=== PATIENT | female | born 1975 | race Two or more races ===

== ENCOUNTER 2017-01-09 18:40 | Emergency (ER) | payer SELFPAY ==
[2017-01-09] MEDS ORDERED: KETOROLAC TROMETHAMINE INJ/PF 30 MG/1 ML SDV IV ONE (19:12)
[2017-01-09] MEDS ORDERED: DIPHENHYDRAMINE HCL 50 MG/ML VIAL IV ONE (19:12)
[2017-01-09] MEDS ORDERED: PROCHLORPERAZINE EDISYLATE INJ 10 MG/2 ML VIAL IV ONE (19:13)
[2017-01-09 19:45] LABS: ABSOLUTE BASOPHILS # (AUTO) 0.1 10^3/uL (0.0-0.2); ABSOLUTE EOSINOPHILS # (AUTO) 0.3 10^3/uL (0.0-0.6); ABSOLUTE LYMPHOCYTES (AUTO) 2.9 10^3/uL (0.5-4.7); ABSOLUTE MONOCYTES (AUTO) 0.5 10^3/uL (0.1-1.4); ABSOLUTE NEUT (AUTO) 1.7 10^3/uL (1.7-8.2); BASOPHILS % (AUTO) 1.7 % (0-2); EOSINOPHILS % (AUTO) 5.2 % (0-6); HEMATOCRIT 36.5 % (36.0-47.0); HEMOGLOBIN 12.5 g/dL (12.0-15.5); LYMPHOCYTES % (AUTO) 53.3 % (13-45); MEAN CORPUSCULAR HEMOGLOBIN 30.8 pg (27.0-33.4); MEAN CORPUSCULAR HGB CONC 34.3 g/dL (32.0-36.0); MEAN CORPUSCULAR VOLUME 90 fl (80-97); MONOCYTES % (AUTO) 9.4 % (3-13); RED BLOOD COUNT 4.06 10^6/uL (3.72-5.28); RED CELL DISTRIBUTION WIDTH 13.1 % (11.5-14.0); SEGMENTED NEUTROPHILS % (AUTO) 30.4 % (42-78); WHITE BLOOD COUNT 5.5 10^3/uL (4.0-10.5)
[2017-01-09 20:07] LABS: ALANINE AMINOTRANSFERASE 23 U/L (9-52); ALBUMIN 3.8 g/dL (3.5-5.0); ALKALINE PHOSPHATASE 75 U/L (38-126); ANION GAP 10 (5-19); ASPARTATE AMINO TRANSFERASE 23 U/L (14-36); BILIRUBIN,DIRECT 0.1 mg/dL (0.0-0.4); BILIRUBIN,TOTAL 0.5 mg/dL (0.2-1.3); BLOOD UREA NITROGEN 11 mg/dL (7-20); CALCIUM 9.2 mg/dL (8.4-10.2); CARBON DIOXIDE 27 mmol/L (22-30); CHLORIDE 106 mmol/L (98-107); GLUCOSE 101 mg/dL (75-110); POTASSIUM 3.8 mmol/L (3.6-5.0); TOTAL PROTEIN 6.4 g/dL (6.3-8.2)
--- NOTE | 2017-01-09 21:02 | ER Document Report ---
ED Headache - General Chief Complaint: Headache Stated Complaint: EARACHE,HEADACHE Notes: 41 yo female c/o left ear pain x 2 weeks and left sided headache x 1 week. no fever. feels dizzy and weak. no neck pain TRAVEL OUTSIDE OF THE [place] IN LAST 30 DAYS: No - HPI Patient complains to provider of: Headache - pt has hx/o migraine, but this is not typical headache for patient Patient reports: Hx chronic headaches Onset: Last week Onset was: Gradual Timing: Still present Quality of pain: Pressure, Sharp Pain Level: 4 Preceding symptoms: denies: Typical of prior aura(s) Associated symptoms: Dizzy. denies: Fever, Nausea/vomiting, Stiff neck Similar symptoms previously: No Recently seen / treated by doctor: No - Related Data Allergies/Adverse Reactions: No Known Allergies Allergy (Verified 07/30/15 13:47) Past Medical History - General Information source: Patient - Social History Smoking Status: Never Smoker Chew tobacco use (# tins/day): No Frequency of alcohol use: None Drug Abuse: None Lives with: Family Family History: Arthritis, CAD, CVA, DM, Hyperlipidemia, Hypertension - Past Medical History Cardiac Medical History: Denies: Hx Coronary Artery Disease, Hx Heart Attack, Hx Hypertension Pulmonary Medical History: Reports: Hx Asthma, Hx Bronchitis, Hx Pneumonia Neurological Medical History: Reports: Hx Migraine GI Medical History: Reports: Hx Hiatal Hernia. Denies: Hx Hepatitis Musculoskeltal Medical History: Reports Hx Arthritis - back, Reports Hx Musculoskeletal Deformity - scoliosis, bunion, hammer toe, Reports Hx Musculoskeletal Trauma Traumatic Medical History: Reports: Hx Fractures - toes Infectious Medical History: Denies: Hx Hepatitis Past Surgical History: Reports: Hx Hysterectomy - oct 2008, Hx Inguinal Hernia, Hx Orthopedic Surgery - Left foot surgery x 3. Denies: Hx Mastectomy, Hx Open Heart Surgery, Hx Pacemaker - Immunizations Hx Diphtheria, Pertussis, Tetanus Vaccination: Yes Review of Systems - Review of Systems Constitutional: No symptoms reported EENT: Ear discharge - left ear pain Cardiovascular: No symptoms reported Respiratory: No symptoms reported Gastrointestinal: No symptoms reported Genitourinary: No symptoms reported Female Genitourinary: No symptoms reported Musculoskeletal: No symptoms reported Skin: No symptoms reported Hematologic/Lymphatic: No symptoms reported Neurological/Psychological: No symptoms reported Physical Exam - Vital signs Vitals: Temp Pulse Resp BP Pulse Ox 98.3 F 66 14 121/69 99 01/09/17 18:59 01/09/17 18:59 01/09/17 18:59 01/09/17 18:59 01/09/17 18:59 Interpretation: Normal - General General appearance: Alert In distress: Mild - HEENT Head: Normocephalic, Atraumatic Eyes: Normal Conjunctiva: Normal Pupils: PERRL Ears: Pinna tenderness - left, Tragus tenderness - left, Other - left post auricular and mastoid tenderness External canal: Erythema, Swollen Tympanic membrane: Injected Sinus: Normal Mouth/Lips: Normal Mucous membranes: Moist Pharynx: Normal Neck: Normal, Supple - Respiratory Respiratory status: No respiratory distress Chest status: Nontender Breath sounds: Normal Chest palpation: Normal - Cardiovascular Rhythm: Regular Heart sounds: Normal auscultation Murmur: No - Abdominal Inspection: Normal Distension: No distension Bowel sounds: Normal Tenderness: Nontender Organomegaly: No organomegaly - Back Back: Normal, Nontender - Extremities General upper extremity: Normal inspection, Nontender, Normal color, Normal ROM , Normal temperature General lower extremity: Normal inspection, Nontender, Normal color, Normal ROM , Normal temperature, Normal weight bearing. No: Mark's sign - Neurological Neuro grossly intact: Yes Cognition: Normal Orientation: AAOx4 Howie Coma Scale Eye Opening: Spontaneous Howie Coma Scale Verbal: Oriented [place] Coma Scale Motor: Obeys Commands Howie Coma Scale Total: 15 Speech: Normal Motor strength normal: LUE, RUE, LLE, RLE Sensory: Normal - Psychological Associated symptoms: Normal affect, Normal mood - Skin Skin Temperature: Warm Skin Moisture: Dry Skin Color: Normal Course - Re-evaluation Re-evalutation: 01/09/17 19:20 pt evaluated. pain meds ordered. labs and head CT ordered. 01/09/17 21:01 pt feeling better after meds. labs and head CT normal. all results reviewed with patient. will treat ear infection with oral and topical antibiotics and oral pain meds. pt to follow up with primary care if symptos persist. pt agreeable with plan and stable for discharge - Vital Signs Vital signs: Temp Pulse Resp BP Pulse Ox 98.3 F 66 14 121/69 99 01/09/17 18:59 01/09/17 18:59 01/09/17 18:59 01/09/17 18:59 01/09/17 18:59 - Laboratory Result Diagrams: 01/09/17 19:25 01/09/17 19:25 Laboratory results interpreted by me: 01/09/17 19:25 Seg Neutrophils % 30.4 L Lymphocytes % 53.3 H Discharge - Discharge Clinical Impression: Left otitis externa Left otitis media Qualifiers: Otitis media type: suppurative Chronicity: acute Recurrence: not specified as recurrent Spontaneous tympanic membrane rupture: without spontaneous rupture Qualified Code(s): H66.002 - Acute suppurative otitis media without spontaneous rupture of ear drum, left ear Condition: Stable Disposition: HOME, SELF-CARE Instructions: Use of Ear Drops ([facility]), Intravenous Compazine for Headaches ([facility]) , Use of Diphenhydramine, Headache ([facility]), Oral Narcotic Medication ([facility]), Otitis Externa ([facility]), Toradol Injection ([facility]) Additional Instructions: Your labs and head CT were normal today I am treating you for an external and middle ear infection Please take all medications as prescribed Please follow up with your primary care if symptoms persist Return to ER for any worsening Prescriptions: Amoxicillin 500 mg PO TID #21 tablet Neomy Sulf/Polymyx B Sulf/Hc [Cortisporin Otic Susp] 4 drop LFT_EAR TID #1 bottle Oxycodone HCl/Acetaminophen [Percocet 5-325 mg Tablet] 1 - 2 tab PO ASDIR PRN # 15 tablet PRN Reason:
[2017-01-09 21:04] VITALS: BP 97/50
[2017-01-09] MEDS ORDERED: HYDROCODONE/ACETAMINOPHEN 5-325 MG 6 TAB/DSPK PO PRN (21:11)
== END 2017-01-09 21:15 | disposition home or self-care (01) ==
LOC: ER 18:40
DX: H60.92 Unspecified otitis externa, left ear (principal); H66.002 Acute suppurative otitis media without spontaneous rupture of ear drum, left ear; R51 Headache; H92.02 Otalgia, left ear; R42 Dizziness and giddiness; R53.1 Weakness
CPT/HCPCS: 99284; 96374; 96375; 36415; 85025; 80053; 70450; J1200; J1885; J0780

== ENCOUNTER 2017-07-19 15:40 | Emergency (ER) | payer OTHER ==
--- NOTE | 2017-07-19 17:57 | ER Document Report ---
ED Skin Rash/Insect Bite/Abscs - General Chief Complaint: Skin Problem Stated Complaint: BUTTOCKS PAIN Time Seen by Provider: 07/19/17 17:57 Mode of Arrival: Ambulatory Information source: Patient Notes: 41 yo Non diabetic, hyst. female c/o chronic Hidranditnitis supperativa buttocks, has recurrent abscess on Left buttocks. She was told in [place] surgeon that she should have excisional removal, not just ER incision. TRAVEL OUTSIDE OF THE [place] IN LAST 30 DAYS: No - Related Data Allergies/Adverse Reactions: No Known Allergies Allergy (Verified 07/19/17 15:52) Past Medical History - General Information source: Patient - Social History Smoking Status: Unknown if Ever Smoked Frequency of alcohol use: None Drug Abuse: None Lives with: Spouse/Significant other Family History: Arthritis, CAD, CVA, DM, Hyperlipidemia, Hypertension Patient has suicidal ideation: No Patient has homicidal ideation: No Pulmonary Medical History: Reports: Hx Asthma, Hx Bronchitis, Hx Pneumonia Neurological Medical History: Reports: Hx Migraine Renal/ Medical History: Denies: Hx Peritoneal Dialysis GI Medical History: Reports: Hx Hiatal Hernia, Hx Ulcer - not a bleeding ulcer Musculoskeltal Medical History: Reports Hx Arthritis - back, Reports Hx Musculoskeletal Deformity - scoliosis, bunion, hammer toe, Reports Hx Musculoskeletal Trauma Traumatic Medical History: Reports: Hx Fractures - toes Past Surgical History: Reports: Hx Hysterectomy, Hx Inguinal Hernia, Hx Orthopedic Surgery - Left foot surgery x 3. Denies: Hx Pacemaker - Immunizations Hx Diphtheria, Pertussis, Tetanus Vaccination: Yes Review of Systems - Review of Systems Constitutional: No symptoms reported EENT: No symptoms reported Cardiovascular: No symptoms reported Respiratory: No symptoms reported Gastrointestinal: No symptoms reported Genitourinary: No symptoms reported Female Genitourinary: No symptoms reported Musculoskeletal: No symptoms reported Skin: See HPI Hematologic/Lymphatic: No symptoms reported Neurological/Psychological: No symptoms reported Physical Exam - Vital signs Vitals: Temp Pulse Resp BP Pulse Ox 98.7 F 79 18 97/57 L 98 07/19/17 15:51 07/19/17 15:51 07/19/17 15:51 07/19/17 15:51 07/19/17 15:51 Interpretation: Normal - General General appearance: Appears well, Alert - HEENT Head: Normocephalic, Atraumatic Eyes: Normal Pupils: PERRL Neck: Supple - Respiratory Respiratory status: No respiratory distress Chest status: Nontender Breath sounds: Normal Chest palpation: Normal - Cardiovascular Rhythm: Regular Heart sounds: Normal auscultation Murmur: No - Abdominal Inspection: Normal Distension: No distension Bowel sounds: Normal Tenderness: Nontender Organomegaly: No organomegaly - Rectal Tenderness: No - no abscess in anaus - Back Back: Normal, Nontender - Extremities General upper extremity: Normal inspection, Nontender, Normal color, Normal ROM , Normal temperature General lower extremity: Normal inspection, Nontender, Normal color, Normal ROM , Normal temperature, Normal weight bearing. No: Mark's sign - Neurological Neuro grossly intact: Yes Cognition: Normal Orientation: AAOx4 Howie Coma Scale Eye Opening: Spontaneous Howie Coma Scale Verbal: Oriented Howie Coma Scale Motor: Obeys Commands Howie Coma Scale Total: 15 Speech: Normal Motor strength normal: LUE, RUE, LLE, RLE Sensory: Normal - Psychological Associated symptoms: Normal affect, Normal mood - Skin Skin Temperature: Warm Skin Moisture: Dry Skin Color: Normal Skin irregularity: Abscess - 1 cm right buttocks 2 inches from anus with 5mm red thin layered center, no drainage, Erythema Course - Re-evaluation Re-evalutation: 07/19/17 19:[address] stallworth who states that this is elective excision , antibiotics to shrink, cipro and flagyl, warm compress. see general surgery saturday. - Vital Signs Vital signs: Temp Pulse Resp BP Pulse Ox 98.7 F 65 16 115/53 L 97 07/19/17 15:51 07/19/17 20:13 07/19/17 20:13 07/19/17 20:13 07/19/17 20:13 - Laboratory Result Diagrams: 07/19/17 18:28 07/19/17 18:28 Laboratory results interpreted by me: 07/19/17 18:28 Seg Neutrophils % 38.5 L Lymphocytes % 46.9 H Discharge - Discharge Clinical Impression: Hx of hidradenitis suppurativa, left buttocks flucuant abscess Condition: Good Disposition: HOME, SELF-CARE Instructions: Abscess ([facility]), Ciprofloxacin ([facility]), Metronidazole ([facility]), Warm Packs ([facility]) Additional Instructions: warm compress lidocain topical jelly for pain flagyl and cipro antibiotics see general surgery on saturday Please complete the patient satisfaction survey if you get one, and return it.. If you do not receive a survey, then you can go to the [facility] website, [email or web address] and place your comments about your very good care. Thank you very much. It was a pleasure being your medical provider today. Prescriptions: Ciprofloxacin HCl [Cipro 500 mg Tablet] 500 mg PO BID #20 tablet Metronidazole [Flagyl 500 mg Tablet] 500 mg PO QID #40 tablet Referrals: CORINE QUINN MD [Primary Care Provider] - Follow up as needed NANCI LIU MD [ACTIVE STAFF] - 07/22/17
[2017-07-19 18:54] LABS: ABSOLUTE BASOPHILS # (AUTO) 0.1 10^3/uL (0.0-0.2); ABSOLUTE EOSINOPHILS # (AUTO) 0.3 10^3/uL (0.0-0.6); ABSOLUTE LYMPHOCYTES (AUTO) 2.6 10^3/uL (0.5-4.7); ABSOLUTE MONOCYTES (AUTO) 0.5 10^3/uL (0.1-1.4); ABSOLUTE NEUT (AUTO) 2.1 10^3/uL (1.7-8.2); BASOPHILS % (AUTO) 1.3 % (0-2); HEMATOCRIT 40.1 % (36.0-47.0); HEMOGLOBIN 13.9 g/dL (12.0-15.5); HGB HCT DIFFERENCE 1.6; LYMPHOCYTES % (AUTO) 46.9 % (13-45); MEAN CORPUSCULAR HEMOGLOBIN 31.1 pg (27.0-33.4); MEAN CORPUSCULAR HGB CONC 34.7 g/dL (32.0-36.0); MEAN CORPUSCULAR VOLUME 90 fl (80-97); MONOCYTES % (AUTO) 8.3 % (3-13); RED BLOOD COUNT 4.47 10^6/uL (3.72-5.28); RED CELL DISTRIBUTION WIDTH 13.1 % (11.5-14.0); SEGMENTED NEUTROPHILS % (AUTO) 38.5 % (42-78); WHITE BLOOD COUNT 5.6 10^3/uL (4.0-10.5)
[2017-07-19 19:16] LABS: ALANINE AMINOTRANSFERASE 28 U/L (9-52); ALBUMIN 3.9 g/dL (3.5-5.0); ALKALINE PHOSPHATASE 92 U/L (38-126); ANION GAP 10 (5-19); ASPARTATE AMINO TRANSFERASE 27 U/L (14-36); BILIRUBIN,DIRECT 0.3 mg/dL (0.0-0.4); BILIRUBIN,TOTAL 0.8 mg/dL (0.2-1.3); BLOOD UREA NITROGEN 14 mg/dL (7-20); CALCIUM 9.3 mg/dL (8.4-10.2); CARBON DIOXIDE 26 mmol/L (22-30); CHLORIDE 105 mmol/L (98-107); GLUCOSE 86 mg/dL (75-110); POTASSIUM 4.2 mmol/L (3.6-5.0); SODIUM 140.7 mmol/L (137-145); TOTAL PROTEIN 7.2 g/dL (6.3-8.2)
[2017-07-19] MEDS ORDERED: LIDOCAINE 2% JELLY 30 ML TUBE TOP ONE (19:43)
[2017-07-19] MEDS ORDERED: CIPROFLOXACIN HCL 500 MG TABLET PO ONE (19:43)
[2017-07-19] MEDS ORDERED: METRONIDAZOLE 500 MG TABLET PO ONE (19:43)
[2017-07-19 20:17] VITALS: BP 115/53
== END 2017-07-19 20:16 | disposition home or self-care (01) ==
LOC: ER 15:40
DX: L02.31 Cutaneous abscess of buttock (principal); J45.909 Unspecified asthma, uncomplicated; Z87.2 Personal history of diseases of the skin and subcutaneous tissue
CPT/HCPCS: 36415; 80053; 85025; 99283

== ENCOUNTER 2017-12-03 10:08 | Emergency (ER) | payer OTHER ==
[2017-12-03] MEDS ORDERED: LIDOCAINE 1% INJ-PF (10 MG/ML) 30 ML SDV INJ ONE (10:33)
[2017-12-03] MEDS ORDERED: HYDROCODONE/ACETAMINOPHEN 5-325 MG TABLET PO ONE (10:33)
--- NOTE | 2017-12-03 10:36 | ER Document Report ---
ED Medical Screen (RME) - General Chief Complaint: Abscess Stated Complaint: POSSIBLE ABSCESS Time Seen by Provider: 12/03/17 10:31 Mode of Arrival: Ambulatory Information source: Patient Notes: 42-year-old female history of hydradenitis superior to the presents with complaints of an abscess of her buttocks. Patient notes symptoms have been ongoing for over a year. I have greeted and performed a rapid initial assessment of this patient. A comprehensive ED assessment and evaluation of the patient, analysis of test results and completion of the medical decision making process will be conducted by additional ED providers. PHYSICAL EXAMINATION: GENERAL: Well-appearing, well-nourished and in no acute distress. HEAD: Atraumatic, normocephalic. EYES: Pupils equal round extraocular movements intact, conjunctiva are normal. ENT: Nares patent NECK: Normal range of motion LUNGS: No respiratory distress Musculoskeletal: Normal range of motion NEUROLOGICAL: Normal speech, normal gait. PSYCH: Normal mood, normal affect. SKIN: Warm, Dry, normal turgor, no rashes or lesions noted. TRAVEL OUTSIDE OF THE [place] IN LAST 30 DAYS: No - Related Data Allergies/Adverse Reactions: No Known Allergies Allergy (Verified 12/03/17 10:11) Past Medical History - Past Medical History Cardiac Medical History: Denies: Hx Coronary Artery Disease, Hx Heart Attack, Hx Hypertension Pulmonary Medical History: Reports: Hx Asthma, Hx Bronchitis, Hx Pneumonia Neurological Medical History: Reports: Hx Migraine Renal/ Medical History: Denies: Hx Peritoneal Dialysis GI Medical History: Reports: Hx Hiatal Hernia, Hx Ulcer - not a bleeding ulcer. Denies: Hx Hepatitis Musculoskeltal Medical History: Reports Hx Arthritis - back, Reports Hx Musculoskeletal Deformity - scoliosis, bunion, hammer toe, Reports Hx Musculoskeletal Trauma Traumatic Medical History: Reports: Hx Fractures - toes Infectious Medical History: Denies: Hx Hepatitis Past Surgical History: Reports: Hx Hysterectomy, Hx Inguinal Hernia, Hx Orthopedic Surgery - Left foot surgery x 3. Denies: Hx Mastectomy, Hx Open Heart Surgery, Hx Pacemaker - Immunizations Hx Diphtheria, Pertussis, Tetanus Vaccination: Yes History of Influenza Vaccine for 06/2017 - 11/2017 Season: No Physical Exam - Vital signs Vitals: Temp Pulse Resp BP Pulse Ox 98.6 F 87 20 116/61 97 12/03/17 10:10 12/03/17 10:10 12/03/17 10:10 12/03/17 10:10 12/03/17 10:10 Course - Vital Signs Vital signs: Temp Pulse Resp BP Pulse Ox 98.6 F 87 20 116/61 97 12/03/17 10:10 12/03/17 10:10 12/03/17 10:10 12/03/17 10:10 12/03/17 10:10
--- NOTE | 2017-12-03 11:54 | ER Document Report ---
HPI - HPI Patient complains to provider of: Abscess Onset: Other - 2 days Onset/Duration: Persistent Quality of pain: Sharp Pain Level: 5 Context: Patient complains of abscess to buttock for the past 2 days. Patient states she does have some nausea. Patient denies any fever. Patient states she has a long history of similar abscesses in the past. Associated Symptoms: denies: Fever Exacerbated by: Movement Relieved by: Denies Similar symptoms previously: Yes Recently seen / treated by doctor: No - ROS ROS below otherwise negative: Yes Systems Reviewed and Negative: Yes All other systems reviewed and negative - CONSTITUTIONAL Constitutional: DENIES: Fever, Chills - GASTROINTESTINAL Gastrointestinal: REPORTS: Nausea. 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 Denies: Hx Hepatitis Musculoskeltal Medical History: Reports Hx Arthritis - back, Reports Hx Musculoskeletal Deformity - scoliosis, bunion, hammer toe, Reports Hx Musculoskeletal Trauma Traumatic Medical History: Reports: Hx Fractures - toes Infectious Medical History: Denies: Hx Hepatitis Past Surgical History: Reports: Hx Hysterectomy, Hx Inguinal Hernia, Hx Orthopedic Surgery - Left foot surgery x 3. Denies: Hx Mastectomy, Hx Open Heart Surgery, Hx Pacemaker - Immunizations Hx Diphtheria, Pertussis, Tetanus Vaccination: Yes Vertical Provider Document - CONSTITUTIONAL Agree With Documented VS: Yes Exam Limitations: No Limitations General Appearance: WD/WN, No Apparent Distress - INFECTION CONTROL TRAVEL OUTSIDE OF THE [place] IN LAST 30 DAYS: No - HEENT HEENT: Atraumatic, Normocephalic - NECK Neck: Normal Inspection - RESPIRATORY Respiratory: Breath Sounds Normal, No Respiratory Distress O2 Sat by Pulse Oximetry: 97 - CARDIOVASCULAR Cardiovascular: Regular Rate, Regular Rhythm - MUSCULOSKELETAL/EXTREMETIES Musculoskeletal/Extremeties: MAEW - NEURO Level of Consciousness: Awake, Alert, Appropriate Motor/Sensory: No Motor Deficit - DERM Integumentary: Warm, Dry, Abscess - Abscess to left buttock, no concern for any perianal involvement Course - Re-evaluation Re-evalutation: 12/03/17 Patient with abscess to right buttock. No concern for perianal abscess. No concern for sepsis. Discussed worsening symptoms that patient should return immediately for. Patient verbalized understanding and agrees with plan of care. - Vital Signs Vital signs: Temp Pulse Resp BP Pulse Ox 98.6 F 87 20 116/61 97 12/03/17 10:10 12/03/17 10:10 12/03/17 10:10 12/03/17 10:10 12/03/17 10:10 Procedures - Incision and Drainage Left Buttock Type: Simple Anesthetic type: 1% Lidocaine Blade size: 11 I&D procedure: Betadine prep applied Incision Method: Incision made by scalpel Amount/type of drainage: Moderate amount of purulent drainage Discharge - Discharge Clinical Impression: Abscess, Encounter for incision and drainage procedure Condition: Stable Disposition: HOME, SELF-CARE Instructions: Abscess ([facility]), Post Incision and Drainage, Trimethoprim-Sulfa ( [facility]), Warm Packs ([facility]) Additional Instructions: Return immediately for any new or worsening symptoms Followup with your primary care provider, call tomorrow to make a followup appointment Prescriptions: Ondansetron HCl [Zofran 4 mg Tablet] 1 - 2 tab PO Q6 PRN #15 tablet PRN Reason: Sulfamethoxazole/Trimethoprim [Bactrim Ds Tablet] 1 each PO BID #20 tablet Forms: Smoking Cessation Education, Return to Work Referrals: [facility] [Provider Group] - Follow up as needed
[2017-12-03 12:09] VITALS: BP 91/56
== END 2017-12-03 12:05 | disposition home or self-care (01) ==
LOC: ER 10:08
DX: L02.31 Cutaneous abscess of buttock (principal); R11.0 Nausea; F17.200 Nicotine dependence, unspecified, uncomplicated; J45.909 Unspecified asthma, uncomplicated
CPT/HCPCS: 99283; 10060; J3490

== ENCOUNTER 2018-01-13 10:40 | Emergency (ER) | payer OTHER ==
--- NOTE | 2018-01-13 12:33 | ER Document Report ---
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 Some tingling that comes and goes in the left neck. No cervical spine injury known. This is new job in December. Associated Symptoms: None Exacerbated by: Movement Relieved by: Denies Similar symptoms previously: Yes Recently seen / treated by doctor: Yes - ROS ROS below otherwise negative: Yes Systems Reviewed and Negative: Yes All other systems reviewed and negative - REPRODUCTIVE Reproductive: DENIES: : Past Medical History - General Information source: Patient - Social History Smoking Status: Current Every Day Smoker Frequency of alcohol use: None Drug Abuse: None Lives with: Family Family History: Arthritis, CAD, CVA, DM, Hyperlipidemia, Hypertension Patient has suicidal ideation: No Patient has homicidal ideation: No Pulmonary Medical History: Reports: Hx Asthma, Hx Bronchitis, Hx Pneumonia Neurological Medical History: Reports: Hx Migraine GI Medical History: Reports: Hx Hiatal Hernia, Hx Ulcer - not a bleeding ulcer. Denies: Hx Hepatitis Musculoskeltal Medical History: Reports Hx Arthritis - back, Reports Hx Musculoskeletal Deformity - scoliosis, bunion, hammer toe, Reports Hx Musculoskeletal Trauma Traumatic Medical History: Reports: Hx Fractures - toes Past Surgical History: Reports: Hx Hysterectomy, Hx Inguinal Hernia, Hx Orthopedic Surgery - Left foot surgery x 3 - Immunizations Hx Diphtheria, Pertussis, Tetanus Vaccination: Yes Vertical Provider Document - CONSTITUTIONAL Agree With Documented VS: Yes Exam Limitations: No Limitations General Appearance: Mild Distress - INFECTION CONTROL TRAVEL OUTSIDE OF THE [place] IN LAST 30 DAYS: No - HEENT HEENT: Normocephalic - NECK Neck: Supple - tender/tense left trapezius, head tilted to the right, shoulders rolled forward - RESPIRATORY Respiratory: Breath Sounds Normal, No Respiratory Distress - CARDIOVASCULAR Cardiovascular: Regular Rate, Regular Rhythm - MUSCULOSKELETAL/EXTREMETIES Musculoskeletal/Extremeties: MAEW, Tender - see above - NEURO Level of Consciousness: Awake, Alert Motor/Sensory: No Motor Deficit, No Sensory Deficit - DERM Integumentary: No Rash Course - Vital Signs Vital signs: Temp Pulse Resp BP Pulse Ox 97.9 F 89 20 112/67 98 01/13/18 10:47 01/13/18 11:15 01/13/18 11:15 01/13/18 11:15 01/13/18 11:15 Discharge - Discharge Clinical Impression: Torticollis Repetitive strain injury of neck Qualifiers: Encounter type: subsequent encounter Qualified Code(s): S16.1XXD - Strain of muscle, fascia and tendon at neck level, subsequent encounter Condition: Good Disposition: HOME, SELF-CARE Instructions: [facility], Ibuprofen (General) ([facility]), Muscle Relaxers ([facility]), Muscle Strain ([facility]), Torticollis ([facility]), Warm Packs ([facility]) Additional Instructions: warm compress stretches as discussed Follow-up care in community clinic you may need an MRI of your cervical spine Prescriptions: Ibuprofen [Motrin 800 mg Tablet] 800 mg PO Q8HP PRN #30 tablet PRN Reason: Cyclobenzaprine HCl [Flexeril 10 Mg Tablet] 10 mg PO TIDP PRN #20 tablet PRN Reason: Forms: Return to Work
[2018-01-13] MEDS ORDERED: IBUPROFEN 800 MG TABLET PO ONE (12:56)
[2018-01-13] MEDS ORDERED: ACETAMINOPHEN 325 MG TABLET PO ONE (12:56)
[2018-01-13 13:14] VITALS: BP 126/85
== END 2018-01-13 13:14 | disposition home or self-care (01) ==
LOC: ER 10:40
DX: S16.1XXA Strain of muscle, fascia and tendon at neck level, initial encounter (principal); X58.XXXA Exposure to other specified factors, initial encounter; M43.6 Torticollis; M54.2 Cervicalgia; R20.2 Paresthesia of skin; F17.200 Nicotine dependence, unspecified, uncomplicated; J45.909 Unspecified asthma, uncomplicated
CPT/HCPCS: 99283

== ENCOUNTER 2018-01-29 12:30 | Emergency (ER) | payer OTHER ==
[2018-01-29] MEDS ORDERED: NORMAL SALINE 1000 ML 1,000 ML IV ONE (12:48)
--- NOTE | 2018-01-29 12:56 | ER Document Report ---
ED Medical Screen (RME) - General Chief Complaint: Abdominal Pain Stated Complaint: ABDOMINAL PAIN Time Seen by Provider: 01/29/18 12:44 TRAVEL OUTSIDE OF THE [place] IN LAST 30 DAYS: No - HPI Notes: 01/29/18 12:50 History of IBS think she has underlying inflammatory bowel does not have a GI specialist has never had a colonoscopy 01/29/18 12:50 Abdominal pain nausea vomiting diarrhea - Related Data Allergies/Adverse Reactions: No Known Allergies Allergy (Verified 01/29/18 12:31) Past Medical History - Social History Chew tobacco use (# tins/day): No Frequency of alcohol use: None Drug Abuse: None - Past Medical History Cardiac Medical History: Denies: Hx Coronary Artery Disease, Hx Heart Attack, Hx Hypertension Pulmonary Medical History: Reports: Hx Asthma, Hx Bronchitis, Hx Pneumonia Neurological Medical History: Reports: Hx Migraine Renal/ Medical History: Denies: Hx Peritoneal Dialysis GI Medical History: Reports: Hx Hiatal Hernia, Hx Ulcer - not a bleeding ulcer. Denies: Hx Hepatitis Musculoskeltal Medical History: Reports Hx Arthritis - back, Reports Hx Musculoskeletal Deformity - scoliosis, bunion, hammer toe, Reports Hx Musculoskeletal Trauma Traumatic Medical History: Reports: Hx Fractures - toes Infectious Medical History: Denies: Hx Hepatitis Past Surgical History: Reports: Hx Hysterectomy, Hx Inguinal Hernia, Hx Orthopedic Surgery - Left foot surgery x 3. Denies: Hx Mastectomy, Hx Open Heart Surgery, Hx Pacemaker - Immunizations Hx Diphtheria, Pertussis, Tetanus Vaccination: Yes History of Influenza Vaccine for 06/2017 - 11/2017 Season: No Review of Systems - Review of Systems Constitutional: No symptoms reported EENT: No symptoms reported Cardiovascular: No symptoms reported Respiratory: No symptoms reported Gastrointestinal: No symptoms reported Genitourinary: No symptoms reported Female Genitourinary: No symptoms reported Musculoskeletal: No symptoms reported Skin: No symptoms reported Hematologic/Lymphatic: No symptoms reported Neurological/Psychological: No symptoms reported Physical Exam - Vital signs Vitals: Temp Pulse Resp BP Pulse Ox 97.9 F 77 16 117/82 97 01/29/18 12:35 01/29/18 12:35 01/29/18 12:35 01/29/18 12:35 01/29/18 12:35 Course - Vital Signs Vital signs: Temp Pulse Resp BP Pulse Ox 97.9 F 77 16 117/82 97 01/29/18 12:35 01/29/18 12:35 01/29/18 12:35 01/29/18 12:35 01/29/18 12:35
[2018-01-29 13:41] LABS: ABSOLUTE EOSINOPHILS # (AUTO) 0.3 10^3/uL (0.0-0.6); ABSOLUTE LYMPHOCYTES (AUTO) 2.1 10^3/uL (0.5-4.7); ABSOLUTE MONOCYTES (AUTO) 0.4 10^3/uL (0.1-1.4); ABSOLUTE NEUT (AUTO) 1.1 10^3/uL (1.7-8.2); BASOPHILS % (AUTO) 1.2 % (0-2); EOSINOPHILS % (AUTO) 8.8 % (0-6); HEMATOCRIT 44.5 % (36.0-47.0); HEMOGLOBIN 15.3 g/dL (12.0-15.5); LYMPHOCYTES % (AUTO) 52.7 % (13-45); MEAN CORPUSCULAR HGB CONC 34.4 g/dL (32.0-36.0); MEAN CORPUSCULAR VOLUME 90 fl (80-97); MONOCYTES % (AUTO) 10.2 % (3-13); PLATELET COUNT 252 10^3/uL (150-450); RED BLOOD COUNT 4.93 10^6/uL (3.72-5.28); RED CELL DISTRIBUTION WIDTH 13.6 % (11.5-14.0); SEGMENTED NEUTROPHILS % (AUTO) 27.1 % (42-78); TOTAL CELLS COUNTED % (AUTO) 100 %
[2018-01-29] MEDS ORDERED: DIPHENHYDRAMINE HCL 50 MG/ML VIAL IV ONE (13:41)
[2018-01-29] MEDS ORDERED: SULFAMETHOXAZOLE/TRIMETHOPRIM 800-160 MG TABLET PO ONE (13:41)
[2018-01-29] MEDS ORDERED: PROCHLORPERAZINE EDISYLATE INJ 10 MG/2 ML VIAL IV ONE (13:41)
[2018-01-29] MEDS ORDERED: DICYCLOMINE HCL INJ 20 MG/2 ML AMPULE IM ONE (13:41)
--- NOTE | 2018-01-29 13:45 | ER Document Report ---
ED General - General Chief Complaint: Abdominal Pain Stated Complaint: ABDOMINAL PAIN Time Seen by Provider: 01/29/18 12:44 TRAVEL OUTSIDE OF THE [place] IN LAST 30 DAYS: No - HPI Notes: 42-year-old female with a long-standing history of IBS, presents with cramping abdominal pain diarrhea not feeling well. Has been going on for last 2-3 years , waxes and wanes. She has not been able to see her primary care doctor. She has tried dietary modification and medication to no avail. Denies any blood in her stool, no unplanned weight loss. No fever, chills or sweats. Crampy mid abdominal pain, nonradiating. She also has a history of self stated hidradenitis suppurativa which she gets in her groin. She has had previous surgeries. States she has had 2 spontaneous lesions pop up with her draining. Achy throbbing pain, nonradiating. No other modifying factors, no other associated symptoms, no other provocative or palliative factors. - Related Data Allergies/Adverse Reactions: No Known Allergies Allergy (Verified 01/29/18 12:31) Past Medical History - Social History Smoking Status: Current Every Day Smoker Chew tobacco use (# tins/day): No Frequency of alcohol use: None Drug Abuse: None Family History: Arthritis, CAD, CVA, DM, Hyperlipidemia, Hypertension Patient has suicidal ideation: No Patient has homicidal ideation: No - Medical History Notes: Includes hidradenitis and IBS - Past Medical History Cardiac Medical History: Denies: Hx Coronary Artery Disease, Hx Heart Attack, Hx Hypertension Pulmonary Medical History: Reports: Hx Asthma, Hx Bronchitis, Hx Pneumonia Neurological Medical History: Reports: Hx Migraine Renal/ Medical History: Denies: Hx Peritoneal Dialysis GI Medical History: Reports: Hx Hiatal Hernia, Hx Ulcer - not a bleeding ulcer. Denies: Hx Hepatitis Musculoskeltal Medical History: Reports Hx Arthritis - back, Reports Hx Musculoskeletal Deformity - scoliosis, bunion, hammer toe, Reports Hx Musculoskeletal Trauma Traumatic Medical History: Reports: Hx Fractures - toes Infectious Medical History: Denies: Hx Hepatitis Past Surgical History: Reports: Hx Hysterectomy, Hx Inguinal Hernia, Hx Orthopedic Surgery - Left foot surgery x 3. Denies: Hx Mastectomy, Hx Open Heart Surgery, Hx Pacemaker - Immunizations Hx Diphtheria, Pertussis, Tetanus Vaccination: Yes Review of Systems - Review of Systems Notes: Review of systems as in the history of present illness, otherwise negative. Physical Exam - Vital signs Vitals: Temp Pulse Resp BP Pulse Ox 97.9 F 77 16 117/82 97 01/29/18 12:35 01/29/18 12:35 01/29/18 12:35 01/29/18 12:35 01/29/18 12:35 - Notes Notes: General: Well developed . HEENT: Normocephalic, atraumatic. Pupils equal round reactive to light. No JVD. Chest: No trauma. Respiratory: Good air exchange, normal excursion. Cardiac: Regular rhythm. No murmurs or gallops. Abdomen: Soft, benign. Nondistended. Nontender. Back: No asymmetry or gross abnormality. Motor: Grossly normal power and tone. Neurologic: Alert, nonfocal. Cranial nerves II-12 are intact. Sensation intact. Vascular: Well perfused. Normal peripheral pulses. Skin: No petechiae or purpura. 2 groin lesions consistent with draining hidradenitis, slight induration but no abscess Course - Re-evaluation Re-evalutation: 01/29/18 13:44 Reasonably well-appearing female with acute on chronic abdominal pain and IBS. She is a relatively benign examination. My suspicion for appendicitis, diverticulitis complication or other intra-abdominal emergency is low. Going to treat with IV Compazine, diphenhydramine, Bentyl. She was seen by the physician in triage and has laboratory studies ordered which are pending. Will reevaluate. 01/29/18 14:20 Labs reviewed, grossly unremarkable. Normal CBC and CMP. Patient had modest improvement. Discharged home with a prescription for Compazine, Bactrim, outpatient follow-up. - Vital Signs Vital signs: Temp Pulse Resp BP Pulse Ox 97.9 F 77 16 117/82 97 01/29/18 12:35 01/29/18 12:35 01/29/18 12:35 01/29/18 12:35 01/29/18 12:35 - Laboratory Result Diagrams: 01/29/18 13:13 01/29/18 13:13 Laboratory results interpreted by me: 01/29/18 01/29/18 01/29/18 13:13 13:13 13:46 Seg Neutrophils % 27.1 L Lymphocytes % 52.7 H Eosinophils % 8.8 H Absolute Neutrophils 1.1 L Sodium 146.4 H Urine Blood MODERATE H Discharge - Discharge Clinical Impression: IBS (irritable bowel syndrome) Qualifiers: Irritable bowel syndrome type: with diarrhea Qualified Code(s): K58.0 - Irritable bowel syndrome with diarrhea Disposition: HOME, SELF-CARE Instructions: Abdominal Pain ([facility]) Prescriptions: Prochlorperazine Maleate [Compazine 10 mg Tablet] 10 mg PO ASDIR PRN #10 tablet PRN Reason: Sulfamethoxazole/Trimethoprim [Bactrim Ds Tablet] 1 each PO Q12 #14 tablet Referrals: CORINE QUINN MD [Primary Care Provider] - Follow up as needed
[2018-01-29 14:02] LABS: ALANINE AMINOTRANSFERASE 33 U/L (9-52); ALBUMIN 4.2 g/dL (3.5-5.0); ALKALINE PHOSPHATASE 81 U/L (38-126); ANION GAP 10 (5-19); ASPARTATE AMINO TRANSFERASE 26 U/L (14-36); BILIRUBIN,DIRECT 0.3 mg/dL (0.0-0.4); BILIRUBIN,TOTAL 0.9 mg/dL (0.2-1.3); BLOOD UREA NITROGEN 9 mg/dL (7-20); CARBON DIOXIDE 30 mmol/L (22-30); CHLORIDE 106 mmol/L (98-107); GLUCOSE 83 mg/dL (75-110); POTASSIUM 4.8 mmol/L (3.6-5.0); SODIUM 146.4 mmol/L (137-145); TOTAL PROTEIN 7.5 g/dL (6.3-8.2)
[2018-01-29 14:04] LABS: APPEARANCE,URINE CLEAR; BILIRUBIN,URINE NEGATIVE (NEGATIVE); COLOR,URINE YELLOW; GLUCOSE, URINE NEGATIVE (NEGATIVE); KETONES,URINE NEGATIVE (NEGATIVE); LEUKOCYTE ESTERASE,URINE NEGATIVE (NEGATIVE); NITRITE,URINE NEGATIVE (NEGATIVE); PROTEIN,URINE NEGATIVE (NEGATIVE); URINE SPECIFIC GRAVITY 1.009; UROBILINOGEN,URINE NEGATIVE mg/dL (<2.0)
[2018-01-29 14:58] VITALS: BP 110/69
== END 2018-01-29 14:58 | disposition home or self-care (01) ==
LOC: ER 12:30
DX: K58.0 Irritable bowel syndrome with diarrhea (principal); R10.9 Unspecified abdominal pain; G89.29 Other chronic pain; L98.9 Disorder of the skin and subcutaneous tissue, unspecified; F17.200 Nicotine dependence, unspecified, uncomplicated; J45.909 Unspecified asthma, uncomplicated
CPT/HCPCS: 99284; 96372; 96361; 96374; 96375; 36415; 83690; 85025; 80053; 81001; J0500; J1200; J0780; J7030

== ENCOUNTER 2018-04-14 14:58 | Emergency (ER) | payer OTHER ==
[2018-04-14 15:08] VITALS: BP 98/53
--- NOTE | 2018-04-14 17:17 | ER Document Report ---
ED Skin Rash/Insect Bite/Abscs - General Chief Complaint: Abscess Stated Complaint: POSSIBLE ABSCESS Time Seen by Provider: 04/14/18 17:00 Mode of Arrival: Ambulatory Information source: Patient Notes: Patient is a 42-year-old female with hidradenitis suppurativa who presents to the ER today for multiple abscesses to her groin and buttocks. Patient states that she has these "all the time." Patient states that they were larger but have gotten smaller over the past week. She denies any fevers or chills. She also complains of right pinky finger pain after accidentally hitting something sharp and metal, resting and having it go through her fingernail. She does state that there is a puncture kyra to the fingernail. She states that she has been having pain to the tip of the finger. She does not know when her last tetanus was. TRAVEL OUTSIDE OF THE [place] IN LAST 30 DAYS: No - Related Data Allergies/Adverse Reactions: No Known Allergies Allergy (Verified 01/29/18 12:31) Past Medical History - General Information source: Patient - Social History Smoking Status: Unknown if Ever Smoked Family History: Arthritis, CAD, CVA, DM, Hyperlipidemia, Hypertension Patient has suicidal ideation: No Patient has homicidal ideation: No - Past Medical History Cardiac Medical History: Denies: Hx Coronary Artery Disease, Hx Heart Attack, Hx Hypertension Pulmonary Medical History: Reports: Hx Asthma, Hx Bronchitis, Hx Pneumonia Neurological Medical History: Reports: Hx Migraine Renal/ Medical History: Denies: Hx Peritoneal Dialysis GI Medical History: Reports: Hx Hiatal Hernia, Hx Ulcer - not a bleeding ulcer. Denies: Hx Hepatitis Musculoskeletal Medical History: Reports Hx Arthritis - back, Reports Hx Musculoskeletal Deformity - scoliosis, bunion, hammer toe, Reports Hx Musculoskeletal Trauma Traumatic Medical History: Reports: Hx Fractures - toes Infectious Medical History: Denies: Hx Hepatitis Past Surgical History: Reports: Hx Hysterectomy, Hx Inguinal Hernia, Hx Orthopedic Surgery - Left foot surgery x 3. Denies: Hx Mastectomy, Hx Open Heart Surgery, Hx Pacemaker - Immunizations Hx Diphtheria, Pertussis, Tetanus Vaccination: Yes Review of Systems - Review of Systems Constitutional: No symptoms reported EENT: No symptoms reported Cardiovascular: No symptoms reported Respiratory: No symptoms reported Gastrointestinal: No symptoms reported Genitourinary: No symptoms reported Female Genitourinary: No symptoms reported Musculoskeletal: See HPI Skin: See HPI Hematologic/Lymphatic: No symptoms reported Neurological/Psychological: No symptoms reported Physical Exam - Vital signs Vitals: Temp Pulse Resp BP Pulse Ox 99.1 F 77 18 98/53 L 100 04/14/18 15:04 04/14/18 15:04 04/14/18 15:04 04/14/18 15:04 04/14/18 15:04 - Notes Notes: PHYSICAL EXAMINATION: GENERAL: uncomfortable appearing, In no acute distress. HEAD: Atraumatic, normocephalic. EYES: Pupils equal round and reactive to light, extraocular movements intact, sclera anicteric, conjunctiva are normal. NECK: Normal range of motion, supple without lymphadenopathy LUNGS: CTAB and equal. No wheezes rales or rhonchi. HEART: Regular rate and rhythm without murmurs ABDOMEN: Soft, no tenderness. No guarding, no rebound BACK: no vertebral tenderness, normal ROM GI/: Multiple small areas of erythema, scar tissue, small areas of induration to the groin and multiple areas on right and left, labia majora, upper right and left buttocks, no fluctuance appreciated, no CVA tenderness EXTREMITIES: right 5th digit of hand with puncture to nailbed, no bleeding, no ecchymoses or subungual hematoma, Normal range of motion, no pitting edema. No cyanosis. NEUROLOGICAL: Cranial nerves grossly intact. Normal sensory/motor exams. PSYCH: Normal mood, normal affect. SKIN: Warm, Dry, normal turgor, no rashes or lesions noted Course - Re-evaluation Re-evalutation: 04/14/18 18:23 Patient does not want incision and drainage today stating that antibiotics have worked in the past when her abscesses were this small. X-ray of the right pinky finger shows a 1 mm radiopaque foreign body right underneath the nail bed at the site of the puncture, otherwise no fracture or abnormality. - Vital Signs Vital signs: Temp Pulse Resp BP Pulse Ox 99.1 F 77 18 98/53 L 100 04/14/18 15:04 04/14/18 15:04 04/14/18 15:04 04/14/18 15:04 04/14/18 15:04 Discharge - Discharge Clinical Impression: Acute foreign body of fingernail Qualifiers: Encounter type: initial encounter Qualified Code(s): S60.673R - Superficial foreign body of unspecified finger, initial encounter Condition: Stable Disposition: HOME, SELF-CARE Instructions: Trimethoprim-Sulfa ([facility]) Additional Instructions: Return immediately for any new or worsening symptoms. Follow up with orthopedic doctor, call tomorrow to make followup appointment. Prescriptions: Sulfamethoxazole/Trimethoprim [Bactrim Ds Tablet] 1 each PO BID #20 tablet Referrals: SELMA PENALOZA MD [ACTIVE STAFF] - Follow up as needed
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
[2018-04-14] MEDS ORDERED: DIPH/PERTUSS(ACELL)/TETANUS VAC/PF 0.5 ML SYR (>=10YO) IM ONE (18:20)
[2018-04-14] MEDS ORDERED: SULFAMETHOXAZOLE/TRIMETHOPRIM 800-160 MG TABLET PO ONE (18:20)
== END 2018-04-14 18:51 | disposition home or self-care (01) ==
LOC: ER 14:58
DX: S61.346A Puncture wound with foreign body of right little finger with damage to nail, initial encounter (principal); W22.8XXA Striking against or struck by other objects, initial encounter; L02.31 Cutaneous abscess of buttock; L02.214 Cutaneous abscess of groin; J45.909 Unspecified asthma, uncomplicated
CPT/HCPCS: 90471; 90715; 99283

== ENCOUNTER 2018-07-21 12:27 | Emergency (ER) | payer SELFPAY ==
[2018-07-21] MEDS ORDERED: LIDOCAINE 1% INJ-PF (10 MG/ML) 30 ML SDV INJ ONE (12:57)
--- NOTE | 2018-07-21 12:58 | ER Document Report ---
ED Medical Screen (RME) - General Chief Complaint: Weakness Stated Complaint: NAUSEA, FATIGUE Time Seen by Provider: 07/21/18 12:57 Notes: 42 years old female with multiple history of groin abscess presents today with another one which is painful and red. No fever chills or other constitutional symptoms TRAVEL OUTSIDE OF THE [place] IN LAST 30 DAYS: No - Related Data Allergies/Adverse Reactions: No Known Allergies Allergy (Verified 07/21/18 12:28) Past Medical History - Social History Chew tobacco use (# tins/day): No Frequency of alcohol use: None Drug Abuse: None - Past Medical History Cardiac Medical History: Denies: Hx Coronary Artery Disease, Hx Heart Attack, Hx Hypertension Pulmonary Medical History: Reports: Hx Asthma, Hx Bronchitis, Hx Pneumonia Neurological Medical History: Reports: Hx Migraine Renal/ Medical History: Denies: Hx Peritoneal Dialysis GI Medical History: Reports: Hx Hiatal Hernia, Hx Ulcer - not a bleeding ulcer. Denies: Hx Hepatitis Musculoskeltal Medical History: Reports Hx Arthritis - back, Reports Hx Musculoskeletal Deformity - scoliosis, bunion, hammer toe, Reports Hx Musculoskeletal Trauma Traumatic Medical History: Reports: Hx Fractures - toes Infectious Medical History: Denies: Hx Hepatitis Past Surgical History: Reports: Hx Hysterectomy, Hx Inguinal Hernia, Hx Orthopedic Surgery - Left foot surgery x 3. Denies: Hx Mastectomy, Hx Open Heart Surgery, Hx Pacemaker - Immunizations Hx Diphtheria, Pertussis, Tetanus Vaccination: Yes History of Influenza Vaccine for 06/2017 - 11/2017 Season: No Physical Exam - Vital signs Vitals: Temp Pulse Resp BP Pulse Ox 98.8 F 85 12 105/71 97 07/21/18 12:32 07/21/18 12:32 07/21/18 12:32 07/21/18 12:32 07/21/18 12:32 Course - Vital Signs Vital signs: Temp Pulse Resp BP Pulse Ox 98.8 F 85 12 105/71 97 07/21/18 12:32 07/21/18 12:32 07/21/18 12:32 07/21/18 12:32 07/21/18 12:32
--- NOTE | 2018-07-21 14:19 | ER Document Report ---
ED General - General Chief Complaint: Weakness Stated Complaint: NAUSEA, FATIGUE Time Seen by Provider: 07/21/18 12:57 Notes: She presents with draining abscess on the right side of her groin, it has been present for 3 weeks, accompanied by a buttock abscess around her butt cheek which is been present for 8 weeks. Not been on antibiotics. History of hidradenitis. Complains of burning pain associate with drainage but no fevers or chills. Triage says "lethargy" but she just says she feels tired, and she is tired of feeling sick. She was seen by Dr. CRISOSTOMO from surgery and had a definitive excision wants but lost her insurance and has not been able to do so since. TRAVEL OUTSIDE OF THE [place] IN LAST 30 DAYS: No - Related Data Allergies/Adverse Reactions: No Known Allergies Allergy (Verified 07/21/18 12:28) Past Medical History - Social History Smoking Status: Former Smoker Chew tobacco use (# tins/day): No Frequency of alcohol use: None Drug Abuse: None Family History: Arthritis, CAD, CVA, DM, Hyperlipidemia, Hypertension Patient has suicidal ideation: No Patient has homicidal ideation: No - Past Medical History Cardiac Medical History: Denies: Hx Coronary Artery Disease, Hx Heart Attack, Hx Hypertension Pulmonary Medical History: Reports: Hx Asthma, Hx Bronchitis, Hx Pneumonia Neurological Medical History: Reports: Hx Migraine Renal/ Medical History: Denies: Hx Peritoneal Dialysis GI Medical History: Reports: Hx Hiatal Hernia, Hx Ulcer - not a bleeding ulcer. Denies: Hx Hepatitis Musculoskeletal Medical History: Reports Hx Arthritis - back, Reports Hx Musculoskeletal Deformity - scoliosis, bunion, hammer toe, Reports Hx Musculoskeletal Trauma Traumatic Medical History: Reports: Hx Fractures - toes Infectious Medical History: Denies: Hx Hepatitis Past Surgical History: Reports: Hx Hysterectomy, Hx Inguinal Hernia, Hx Orthopedic Surgery - Left foot surgery x 3. Denies: Hx Mastectomy, Hx Open Heart Surgery, Hx Pacemaker - Immunizations Hx Diphtheria, Pertussis, Tetanus Vaccination: Yes Review of Systems - Review of Systems Notes: REVIEW OF SYSTEMS GEN: Denies fever, chills, weight loss ENT: Denies sore throat, nasal discharge, ear pain EYES: Denies blurry vision, eye pain, discharge CV: Denies chest pain, palpitations, edema RESP: Denies cough, shortness of breath, wheezing GI: Denies abdominal pain, nausea, vomiting, diarrhea MSK: Denies joint pain/swelling, edema, SKIN: Abscess drainage LYMPH: Denies swollen glands/lymph nodes NEURO: Denies headache, focal weakness or numbness, dizziness PSYCH: Denies depression, suicidal or homicidal ideation PHYSICAL EXAMINATION General: No acute distress, well-nourished Head: Atraumatic, normocephalic ENT: Mouth normal, oropharynx moist, no exudates or tonsillar enlargement Eyes: Conjunctiva normal, pupils equal, lids normal Neck: No JVD, supple, no guarding CVS: Normal rate, regular rhythm, no murmurs Resp: No resp distress, equal and normal breath sounds bilaterally GI: Nondistended, soft, no tenderness to palpation, no rebound or guarding. Firm induration in the buttocks region on bilateral sides nowhere near the anus. Draining abscess about 2 cm above the mons area. Ext: No deformities, no edema, normal range of motion in upper and lower ext Back: No CVA or midline TTP Skin: No rash, warm Lymphatic: No lymphadeopathy noted Neuro: Awake, alert. Face symmetric. GCS 15. Physical Exam - Vital signs Vitals: Temp Pulse Resp BP Pulse Ox 98.8 F 85 12 105/71 97 07/21/18 12:32 07/21/18 12:32 07/21/18 12:32 07/21/18 12:32 07/21/18 12:32 Course - Re-evaluation Re-evalutation: 07/21/18 14:19 Patient presents with chronic hidradenitis, the sky-anal/buttock abscesses appear chronic and not draining. The abscess on the mons, which is about 2 cm from the clitoral guajardo on the right, is draining spontaneously. She does not have signs of systemic toxicity, there is no signs of necrotizing infection, her vital signs are normal, her pain is well controlled, and she warrants definitive referral to surgery. She is requesting Bactrim so this was ordered. Diflucan for yeast. Discharge I have discussed with the patient there likely diagnosis, aftercare plan, follow-up plans and my usual and customary return precautions. They verbalized understanding of this. - Vital Signs Vital signs: Temp Pulse Resp BP Pulse Ox 98.8 F 85 12 105/71 97 07/21/18 12:32 07/21/18 12:32 07/21/18 12:32 07/21/18 12:32 07/21/18 12:32 Discharge - Discharge Clinical Impression: Hidradenitis suppurativa Condition: Good Disposition: HOME, SELF-CARE Instructions: Abscess ([facility]) Additional Instructions: As we discussed, your recurrent abscess problem will not get better with antibiotics and requires definitive treatment, which means actually surgically removing the sweat glands, by a general surgeon. We have agreed to give antibiotics temporarily talk, to improve some of the abscesses. If you develop fever chills pain with bowel movements weakness dizziness or any other concerning symptoms please return to the ER. Please take antibiotics and antifungal agent if you develop yeast symptoms, exactly as prescribed. Prescriptions: Fluconazole [Diflucan 100 Mg Tablet] 200 mg PO DAILY #1 tablet Sulfamethoxazole/Trimethoprim [Septra-Ds 800-160 mg Tablet] 1 tab PO BID #20 tablet Referrals: CROW RAIN MD [ACTIVE STAFF] - Follow up as needed
[2018-07-21 16:05] VITALS: BP 103/63
== END 2018-07-21 16:27 | disposition home or self-care (01) ==
LOC: ER 12:27
DX: L73.2 Hidradenitis suppurativa (principal); K61.0 Anal abscess; L02.215 Cutaneous abscess of perineum; R53.83 Other fatigue; J45.909 Unspecified asthma, uncomplicated; Z87.891 Personal history of nicotine dependence
CPT/HCPCS: 99283

== ENCOUNTER → 2018-09-18 | Outpatient (CLI) | payer OTHER ==
[2018-09-18 12:00] LABS: HEMATOCRIT 40.1 % (36.0-47.0); HEMOGLOBIN 13.7 g/dL (12.0-15.5); MEAN CORPUSCULAR HEMOGLOBIN 30.7 pg (27.0-33.4); MEAN CORPUSCULAR HGB CONC 34.1 g/dL (32.0-36.0); MEAN CORPUSCULAR VOLUME 90 fl (80-97); PLATELET COUNT 220 10^3/uL (150-450); RED BLOOD COUNT 4.46 10^6/uL (3.72-5.28); RED CELL DISTRIBUTION WIDTH 13.5 % (11.5-14.0); WHITE BLOOD COUNT 4.1 10^3/uL (4.0-10.5)
[2018-09-18 12:28] LABS: ALANINE AMINOTRANSFERASE 32 U/L (9-52); ALBUMIN 3.8 g/dL (3.5-5.0); ALKALINE PHOSPHATASE 85 U/L (38-126); ANION GAP 5 (5-19); ASPARTATE AMINO TRANSFERASE 35 U/L (14-36); BILIRUBIN,DIRECT 0.3 mg/dL (0.0-0.4); BILIRUBIN,TOTAL 0.8 mg/dL (0.2-1.3); BLOOD UREA NITROGEN 13 mg/dL (7-20); CALCIUM 9.1 mg/dL (8.4-10.2); CARBON DIOXIDE 29 mmol/L (22-30); CHLORIDE 106 mmol/L (98-107); CHOLESTEROL 226.56 mg/dL (0-200); GLUCOSE 92 mg/dL (75-110); POTASSIUM 4.4 mmol/L (3.6-5.0); SODIUM 140.2 mmol/L (137-145); TOTAL PROTEIN 6.9 g/dL (6.3-8.2); TRIGLYCERIDES 118 mg/dL (<150)
[2018-09-18 12:39] LABS: DIRECT LDL 133 mg/dL (<100)
[2018-09-18 12:40] LABS: ABSOLUTE LYMPHOCYTES# (MANUAL) 2.7 10^3/uL (0.5-4.7); ABSOLUTE MONOCYTES # (MANUAL) 0.4 10^3/uL (0.1-1.4); ABSOLUTE NEUTROPHILS# (MANUAL) 0.8 10^3/uL (1.7-8.2); BASOPHILS % (MANUAL) 1 % (0-2); EOSINOPHILS % (MANUAL) 6 % (0-6); MONOCYTES % (MANUAL) 9 % (3-13); SEGMENTED NEUTROPHILS % (MAN) 19 % (42-78); TOTAL CELLS COUNTED 100
[2018-09-18 12:42] LABS: LYMPHOCYTES % (MANUAL) 65 % (13-45); ROULEAUX SLIGHT
[2018-09-18 12:43] LABS: HYPOCHROMASIA SLIGHT; PLATELET COMMENT ADEQUATE
--- NOTE | 2018-09-18 12:48 | RADIOLOGY REPORT (SQ) ---
EXAM DESCRIPTION: SACRUM AND COCCYX COMPLETED DATE/TIME: 09/18/2018 12:16 pm REASON FOR STUDY: BACK PAIN Z00.00 ENCNTR FOR GENERAL ADULT MEDICAL EXAM W/O ABNORMAL FI M54.9 SABAS SALGIA, UNSPECIFIED COMPARISON: None. NUMBER OF VIEWS: Three views. TECHNIQUE: AP, lateral, and tilt views of the sacrum and coccyx. LIMITATIONS: None. FINDINGS: MINERALIZATION: Normal. BONES: No acute fracture or dislocation. No worrisome bone lesions. SOFT TISSUES: No soft tissue swelling. No foreign body. OTHER: No other significant finding. IMPRESSION: NEGATIVE STUDY OF THE SACRUM AND COCCYX. TECHNICAL DOCUMENTATION: JOB ID: [id number] [employer]- All Rights Reserved Reading location - IP/workstation name: [email or web address]
--- NOTE | 2018-09-18 12:49 | RADIOLOGY REPORT (SQ) ---
EXAM DESCRIPTION: T SPINE AP/LAT COMPLETED DATE/TIME: 09/18/2018 12:16 pm REASON FOR STUDY: BACK PAIN Z00.00 ENCNTR FOR GENERAL ADULT MEDICAL EXAM W/O ABNORMAL FI M54.9 SABAS SALGIA, UNSPECIFIED COMPARISON: None. NUMBER OF VIEWS: Two views. TECHNIQUE: AP and lateral radiographic images acquired of the thoracic spine. LIMITATIONS: None. FINDINGS: MINERALIZATION: Normal. ALIGNMENT: 10 convex right scoliosis at level of T7-8. VERTEBRAE: No fracture or bone lesion. Maintained height, normal segmentation. DISCS: No significant loss of height or significant narrowing. No large osteophytes. HARDWARE: None in the spine. MEDIASTINUM AND SOFT TISSUES: Normal heart size and aortic contour. No soft tissue abnormality. VISUALIZED LUNG ZUNIGA: Clear. OTHER: No other significant finding. IMPRESSION: Mild scoliosis. TECHNICAL DOCUMENTATION: JOB ID: [id number] [employer]- All Rights Reserved Reading location - IP/workstation name: [email or web address]
--- NOTE | 2018-09-18 12:51 | RADIOLOGY REPORT (SQ) ---
EXAM DESCRIPTION: LUMBAR SPINE W/FLEX/EXT COMPLETED DATE/TIME: 09/18/2018 12:16 pm REASON FOR STUDY: BACK PAIN Z00.00 ENCNTR FOR GENERAL ADULT MEDICAL EXAM W/O ABNORMAL FI M54.9 SABAS SALGIA, UNSPECIFIED COMPARISON: None. NUMBER OF VIEWS: Seven views. TECHNIQUE: AP, lateral, obliques, flexion, extension, and sacral radiographic images acquired. LIMITATIONS: None. FINDINGS: MINERALIZATION: Normal. SEGMENTATION: Normal. No transitional anatomy. ALIGNMENT: 10 convex left scoliosis at level of L2-3. FLEXION/EXTENSION: No instability. VERTEBRAE: Maintained height. No fracture or worrisome bone lesion. DISCS: Disc space narrowing L5-S1. POSTERIOR ELEMENTS: Pedicles and facets are intact. No pars defect or posterior arch defects. HARDWARE: None in the spine. PARASPINAL SOFT TISSUES: Normal. PELVIS: Intact as visualized. No fractures or worrisome bone lesions. SI joints intact. OTHER: No other significant finding. IMPRESSION: Mild scoliosis. No instability. NO INSTABILITY ON FLEXION/EXTENSION. TECHNICAL DOCUMENTATION: JOB ID: [id number] [email or web address]- All Rights Reserved Reading location - IP/workstation name: [email or web address]
[2018-09-19 11:19] LABS: PATH REVIEW PATHOLOGIST REVIEWED
== END ==
LOC: CCC 11:13
DX: Z00.00 Encounter for general adult medical examination without abnormal findings (principal); M54.9 Dorsalgia, unspecified; M41.9 Scoliosis, unspecified
CPT/HCPCS: 36415; 72070; 72114; 72220; 80053; 80061; 83036; 84443; 85025

== ENCOUNTER → 2018-09-29 | Outpatient (CLI) | payer OTHER ==
[2018-09-29 15:02] LABS: ABSOLUTE BASOPHILS # (AUTO) 0.1 10^3/uL (0.0-0.2); ABSOLUTE EOSINOPHILS # (AUTO) 0.5 10^3/uL (0.0-0.6); ABSOLUTE LYMPHOCYTES (AUTO) 2.7 10^3/uL (0.5-4.7); ABSOLUTE MONOCYTES (AUTO) 0.5 10^3/uL (0.1-1.4); ABSOLUTE NEUT (AUTO) 1.1 10^3/uL (1.7-8.2); BASOPHILS % (AUTO) 1.3 % (0-2); EOSINOPHILS % (AUTO) 9.6 % (0-6); HEMATOCRIT 39.6 % (36.0-47.0); HEMOGLOBIN 13.5 g/dL (12.0-15.5); LYMPHOCYTES % (AUTO) 56.7 % (13-45); MEAN CORPUSCULAR HEMOGLOBIN 30.7 pg (27.0-33.4); MEAN CORPUSCULAR VOLUME 90 fl (80-97); MONOCYTES % (AUTO) 9.5 % (3-13); PLATELET COUNT 248 10^3/uL (150-450); RED BLOOD COUNT 4.39 10^6/uL (3.72-5.28); RED CELL DISTRIBUTION WIDTH 13.4 % (11.5-14.0); SEGMENTED NEUTROPHILS % (AUTO) 22.9 % (42-78); TOTAL CELLS COUNTED % (AUTO) 100 %; WHITE BLOOD COUNT 4.8 10^3/uL (4.0-10.5)
== END ==
LOC: OD 14:28
DX: D72.819 Decreased white blood cell count, unspecified (principal)
CPT/HCPCS: 36415; 85025

== ENCOUNTER 2019-03-19 12:41 | Emergency (ER) | payer MEDICAID ==
--- NOTE | 2019-03-19 12:57 | ER Document Report ---
ED Medical Screen (RME) - General Chief Complaint: Abdominal Pain Stated Complaint: ABDOMINAL PAIN Time Seen by Provider: 03/19/19 12:55 Primary Care Provider: LUCY BUTLER FNP-BC [Primary Care Provider] - Follow up as needed Mode of Arrival: Ambulatory Information source: Patient Notes: 43-year-old female presented to ED for complaint of vaginal discharge odor burning with urination and abdominal pain. She states she is also had nausea and vomiting. She states she went to her primary care and they did a bacterial vaginosis swab and told her that she had bacterial vaginosis and gave her a cream. She stated is has not changed anything she continues to have the pain the discharge the odor the burning in the nausea. Patient is alert oriented respirations regular and unlabored speaking in full sentences walks with a even steady gait. I have greeted and performed a rapid initial assessment of this patient. A comprehensive ED assessment and evaluation of the patient, analysis of test results and completion of medical decision making process will be conducted by an additional ED providers. Dictation of this chart was performed using voice recognition software; therefore, there may be some unintended grammatical errors. TRAVEL OUTSIDE OF THE [place] 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 Denies: Hx Hepatitis Musculoskeltal Medical History: Reports Hx Arthritis - back, Reports Hx Musculoskeletal Deformity - scoliosis, bunion, hammer toe, Reports Hx Musculoskeletal Trauma Traumatic Medical History: Reports: Hx Fractures - toes Infectious Medical History: Denies: Hx Hepatitis Past Surgical History: Reports: Hx Hysterectomy, Hx Inguinal Hernia, Hx Orthopedic Surgery - Left foot surgery x 3. Denies: Hx Mastectomy, Hx Open Heart Surgery, Hx Pacemaker - Immunizations Hx Diphtheria, Pertussis, Tetanus Vaccination: Yes History of Influenza Vaccine for 06/2017 - 11/2017 Season: No Physical Exam - Vital signs Vitals: Temp Pulse Resp BP Pulse Ox 98.5 F 88 12 103/65 100 03/19/19 12:51 03/19/19 12:51 03/19/19 12:51 03/19/19 12:51 03/19/19 12:51 Course - Vital Signs Vital signs: Temp Pulse Resp BP Pulse Ox 98.5 F 88 12 103/65 100 03/19/19 12:51 03/19/19 12:51 03/19/19 12:51 03/19/19 12:51 03/19/19 12:51 Doctor's Discharge - Discharge Referrals: LUCY BUTLER FNP-BC [Primary Care Provider] - Follow up as needed
[2019-03-19 13:27] LABS: ABSOLUTE BASOPHILS # (AUTO) 0.1 10^3/uL (0.0-0.2); ABSOLUTE EOSINOPHILS # (AUTO) 0.2 10^3/uL (0.0-0.6); ABSOLUTE LYMPHOCYTES (AUTO) 2.2 10^3/uL (0.5-4.7); ABSOLUTE MONOCYTES (AUTO) 0.4 10^3/uL (0.1-1.4); ABSOLUTE NEUT (AUTO) 1.9 10^3/uL (1.7-8.2); BASOPHILS % (AUTO) 1.1 % (0-2); EOSINOPHILS % (AUTO) 4.3 % (0-6); HEMATOCRIT 39.7 % (36.0-47.0); HEMOGLOBIN 13.6 g/dL (12.0-15.5); LYMPHOCYTES % (AUTO) 45.7 % (13-45); MEAN CORPUSCULAR HGB CONC 34.2 g/dL (32.0-36.0); MEAN CORPUSCULAR VOLUME 91 fl (80-97); MONOCYTES % (AUTO) 9.1 % (3-13); PLATELET COUNT 225 10^3/uL (150-450); RED BLOOD COUNT 4.38 10^6/uL (3.72-5.28); RED CELL DISTRIBUTION WIDTH 13.8 % (11.5-14.0); SEGMENTED NEUTROPHILS % (AUTO) 39.8 % (42-78); TOTAL CELLS COUNTED % (AUTO) 100 %; WHITE BLOOD COUNT 4.8 10^3/uL (4.0-10.5)
[2019-03-19 13:34] LABS: APPEARANCE,URINE CLEAR; BILIRUBIN,URINE NEGATIVE (NEGATIVE); COLOR,URINE STRAW; GLUCOSE, URINE NEGATIVE (NEGATIVE); KETONES,URINE NEGATIVE (NEGATIVE); LEUKOCYTE ESTERASE,URINE NEGATIVE (NEGATIVE); NITRITE,URINE NEGATIVE (NEGATIVE); PROTEIN,URINE NEGATIVE (NEGATIVE); URINE SPECIFIC GRAVITY 1.004; UROBILINOGEN,URINE NEGATIVE mg/dL (<2.0)
[2019-03-19 13:46] LABS: ALANINE AMINOTRANSFERASE 20 U/L (9-52); ALKALINE PHOSPHATASE 70 U/L (38-126); ANION GAP 6 (5-19); ASPARTATE AMINO TRANSFERASE 22 U/L (14-36); BILIRUBIN,DIRECT 0.1 mg/dL (0.0-0.4); BILIRUBIN,TOTAL 0.6 mg/dL (0.2-1.3); BLOOD UREA NITROGEN 12 mg/dL (7-20); CALCIUM 9.6 mg/dL (8.4-10.2); CARBON DIOXIDE 31 mmol/L (22-30); CHLORIDE 103 mmol/L (98-107); GLUCOSE 82 mg/dL (75-110); SODIUM 140.2 mmol/L (137-145); TOTAL PROTEIN 6.9 g/dL (6.3-8.2)
[2019-03-19 13:48] LABS: URINE AMPHETAMINES SCREEN NEGATIVE; URINE BARBITURATES SCREEN NEGATIVE; URINE BENZODIAZEPINES SCREEN NEGATIVE; URINE COCAINE SCREEN NEGATIVE; URINE MARIJUANA (THC) SCREEN UNCONFIRMED POSITIVE; URINE PHENCYCLIDINE SCREEN NEGATIVE
[2019-03-19 13:54] LABS: URINE METHADONE SCREEN NEGATIVE
--- NOTE | 2019-03-19 15:09 | ER Document Report ---
ED General - General Chief Complaint: Abdominal Pain Stated Complaint: ABDOMINAL PAIN Time Seen by Provider: 03/19/19 12:55 Primary Care Provider: LUCY BUTLER FNP-BC [NO LOCAL MD] - Follow up as needed Mode of Arrival: Ambulatory Information source: Patient TRAVEL OUTSIDE OF THE [place] IN LAST 30 DAYS: No - HPI Patient complains to provider of: Vaginal discharge and pelvic cramping Onset: Other - 2 weeks Quality of pain: Cramping, Sharp Severity: Moderate Pain Level: 3 Associated symptoms: denies: Chills, Fever Exacerbated by: Denies Relieved by: Denies Similar symptoms previously: No Recently seen / treated by doctor: No Notes: 43-year-old female coming in today with 2 weeks of white malodorous vaginal discharge and now having pelvic cramping. No fevers or chills. No nausea vomiting or diarrhea. Patient reports that she was seen recently by her primary care and was told that she had bacterial vaginosis. She was treated with 1 week of MetroGel. Her symptoms have not abated. Patient does also mention that she infused a tampon with coconut oil and tea tree oil prior to starting the MetroGel as a way of self treating the infection. - Related Data Allergies/Adverse Reactions: No Known Allergies Allergy (Verified 03/19/19 12:41) Past Medical History - General Information source: Patient - Social History Smoking Status: Current Every Day Smoker Chew tobacco use (# tins/day): No Frequency of alcohol use: Rare Drug Abuse: None - States she uses CBD oil Family History: Arthritis, CAD, CVA, DM, Hyperlipidemia, Hypertension Patient has suicidal ideation: No Patient has homicidal ideation: No - Past Medical History Cardiac Medical History: Denies: Hx Coronary Artery Disease, Hx Heart Attack, Hx Hypertension Pulmonary Medical History: Reports: Hx Asthma, Hx Bronchitis, Hx Pneumonia Neurological Medical History: Reports: Hx Migraine Renal/ Medical History: Denies: Hx Peritoneal Dialysis GI Medical History: Reports: Hx Hiatal Hernia, Hx Ulcer - not a bleeding ulcer. Denies: Hx Hepatitis Musculoskeletal Medical History: Reports Hx Arthritis - back, Reports Hx Musculoskeletal Deformity - scoliosis, bunion, hammer toe, Reports Hx Musculoskeletal Trauma Traumatic Medical History: Reports: Hx Fractures - toes Infectious Medical History: Denies: Hx Hepatitis Past Surgical History: Reports: Hx Hysterectomy, Hx Inguinal Hernia, Hx Orthopedic Surgery - Left foot surgery x 3. Denies: Hx Mastectomy, Hx Open Heart Surgery, Hx Pacemaker - Immunizations Hx Diphtheria, Pertussis, Tetanus Vaccination: Yes Review of Systems - Review of Systems Notes: Constitutional: No fevers. No chills. EENT: No eye redness. No eye pain. No ear pain. No sore throat. Cardiovascular: No chest pain. No palpitations. Respiratory: No cough. No shortness of breath. No respiratory distress. Gastrointestinal: No abdominal pain. No nausea, vomiting, or diarrhea. Genitourinary: Positive for vaginal discharge. Positive for pelvic discomfort Musculoskeletal: Atraumatic. No swelling. No deformities. Skin: No rash or lesions. Lymphatic: No swollen lymph nodes. Neurologic: No headache. No syncope. Psychiatric: No suicidal or homicidal ideation. Physical Exam - Vital signs Vitals: Temp Pulse Resp BP Pulse Ox 98.5 F 88 12 103/65 100 03/19/19 12:51 03/19/19 12:51 03/19/19 12:51 03/19/19 12:51 03/19/19 12:51 - Notes Notes: General: Well-developed, well-nourished. In no acute distress. Non-toxic appearing. Cardiac: Well-perfused. Regular rate and rhythm. No murmurs, rubs, or gallops. Pulmonary: No respiratory distress. No cyanosis. Bilateral lung velasquez are clear to auscultation. Abdominal: Left lower quadrant tender to deep palpation. Abdomen is otherwise nondistended. No guarding or rebound. Bowel sounds are present all 4 quadrants. No CVA tenderness. HEENT: Head is atraumatic. Conjunctivae not reddened. No tearing. PERRL. EOMI. Orbits atraumatic. No periorbital swelling or erythema. Oropharynx is without erythema, swelling, or exudates. Neck: Supple. No adenopathy. No meningismus. Dermatologic: Warm with good turgor. No rash. Atraumatic. Chest: Atraumatic. No chest wall tenderness to palpation. Musculoskeletal: Moves all extremities well. No range of motion deficits. no muscular or joint tenderness. No paraspinal muscle tenderness. no midline spinal tenderness or step-off. Genitourinary: Chaperoned by Deny. Vaginal vault is full of clear gel (1 week of MetroGel via history) patient has full hysterectomy including oophorectomy. No gross vaginal discharge. Neurologic: No gross neurologic deficits. Psychiatric: Normal mood. Course - Re-evaluation Re-evalutation: Cultures sent. Doubt that we will get any useful information from these. Patient is tender in the left lower quadrant. We will get a CT scan. Possible stone, possible diverticular inflammation. 03/19/19 16:[address] scan normal. Will refer patient to gynecology for further assessment - Vital Signs Vital signs: Temp Pulse Resp BP Pulse Ox 98.5 F 88 12 103/65 100 03/19/19 12:51 03/19/19 12:51 03/19/19 12:51 03/19/19 12:51 03/19/19 12:51 - Laboratory Result Diagrams: 03/19/19 12:56 03/19/19 12:56 Laboratory results interpreted by me: 03/19/19 03/19/19 03/19/19 12:56 12:56 12:56 Seg Neutrophils % 39.8 L Lymphocytes % 45.7 H Carbon Dioxide 31 H Urine Blood SMALL H Discharge - Discharge Clinical Impression: Vaginal discharge, Pelvic pain Condition: Good Disposition: HOME, SELF-CARE Instructions: Pelvic Pain ([facility]) Additional Instructions: Please follow-up with Dr. Quijano who is a online content developer for further evaluation of this problem. Referrals: BREEZY QUIJANO MD [ACTIVE STAFF] - Follow up as needed
[2019-03-19 15:30] LABS: RBCS (WET MOUNT) NO RBCS SEEN; T.VAGINALIS (WET MOUNT) NO TRICHOMONAS SEEN; WBCS (WET MOUNT) NO WBCS SEEN; YEAST (WET MOUNT) NO YEAST SEEN
--- NOTE | 2019-03-19 16:23 | RADIOLOGY REPORT (SQ) ---
EXAM DESCRIPTION: CT ABD/PELVIS WITH IV ONLY COMPLETED DATE/TIME: 03/19/2019 4:10 pm REASON FOR STUDY: llq pain COMPARISON: None. TECHNIQUE: CT scan of the abdomen and pelvis performed using helical scanning technique with dynamic intravenous contrast injection. No oral contrast. Images reviewed with lung, soft tissue, and bone windows. Reconstructed coronal and sagittal MPR images reviewed. Delayed images for evaluation of the urinary system also acquired. All images stored on PACS. All CT scanners at this facility use dose modulation, iterative reconstruction, and/or weight based d osing when appropriate to reduce radiation dose to as low as reasonably achievable (ALARA). [facility]: Dose Right [facility]: CareDose [facility]: Dose Right [facility]: Teradose 4D [facility]: [employer] CONTRAST TYPE AND DOSE: contrast/concentration: Isovue 350.00 mg/ml; Total Contrast Delivered: 69.0 ml; Total Saline Delivered: 65.0 ml RENAL FUNCTION: GFR > 60. RADIATION DOSE: CT Rad equipment meets quality standard of care and radiation dose reduction techniq ues were employed. CTDIvol: NaN - NaN mGy. DLP: 0 mGy-cm.. LIMITATIONS: None. FINDINGS: LOWER CHEST: No significant findings. No nodules or infiltrates. LIVER: Normal size. No masses. No dilated ducts. SPLEEN: Normal size. No focal lesions. PANCREAS: No masses. No significant calcifications. No adjacent inflammation or peripancreatic fluid collections. Pancreatic duct not dilated. GALLBLADDER: No identified stones by CT criteria. No inflammatory changes to suggest cholecystitis. ADRENAL GLANDS: No significant masses or asymmetry. RIGHT KIDNEY AND URETER: No solid masses. No significant calcifications. No hydronephrosis or hyd roureter. LEFT KIDNEY AND URETER: No solid masses. No significant calcifications. No hydronephrosis or hydr oureter. AORTA AND VESSELS: No aneurysm. No dissection. Renal arteries, SMA, celiac without stenosis. RETROPERITONEUM: No retroperitoneal adenopathy, hemorrhage or masses. BOWEL AND PERITONEAL CAVITY: No masses or inflammatory changes. No free fluid or peritoneal masses. APPENDIX: Normal. PELVIS: No mass. No free fluid. Normal bladder. Post hysterectomy. ABDOMINAL WALL: No masses. No hernias. BONES: No significant or acute findings. OTHER: No other significant finding. IMPRESSION: NO SIGNIFICANT OR ACUTE FINDING IN THE ABDOMEN OR PELVIS ON CT SCAN WITH IV CONTRAST. TECHNICAL DOCUMENTATION: JOB ID: [id number] Quality ID # [id number]: Final reports with documentation of one or more dose reduction techniques (e.g., Au tomated exposure control, adjustment of the mA and/or kV according to patient size, use of iterative reconstruction technique) 2010 [employer]- All Rights Reserved Reading location - IP/workstation name: [email or web address]
[2019-03-19 16:59] LABS: CHLAM PCR NOT DETECTED (NOT DETECT)
[2019-03-19 17:21] VITALS: BP 103/69
== END 2019-03-19 17:27 | disposition home or self-care (01) ==
LOC: ER 12:41
DX: R10.2 Pelvic and perineal pain (principal); R10.814 Left lower quadrant abdominal tenderness; N89.8 Other specified noninflammatory disorders of vagina; F17.200 Nicotine dependence, unspecified, uncomplicated; J45.909 Unspecified asthma, uncomplicated; Z86.19 Personal history of other infectious and parasitic diseases; Z90.710 Acquired absence of both cervix and uterus
CPT/HCPCS: 36415; 74177; 80053; 80307; 81001; 84703; 85025; 87210; 87491; 87591; 99284

== ENCOUNTER 2019-06-09 16:23 | Emergency (ER) | payer MEDICAID ==
[2019-06-09 16:34] VITALS: BP 104/78
--- NOTE | 2019-06-09 16:41 | ER Document Report ---
ED Medical Screen (RME) - General Chief Complaint: Chest Pain Stated Complaint: CHEST PAIN Time Seen by Provider: 06/09/19 16:30 Mode of Arrival: Medic Information source: Patient Notes: This 43-year-old female presents emergency department with midsternal chest pain radiating to her back that started this morning. She also complains of back and neck pain but reports she has chronic back and neck pain. Reports the back pain is not new or different. Also feels nauseated. She went to see her primary care provider who sent her over here via EMS. EKG shows normal sinus rhythm no ST elevation or T wave inversion. Patient reports it feels better when she leans forward. Respiratory rate even unlabored, no friction rub noted. Patient reports chest pain started when she woke up this morning 0900. No history of cardiac disease. Also reports she has a pounding headache. I have greeted and performed a rapid initial assessment of this patient. A comprehensive ED assessment and evaluation of the patient, analysis of test results and completion of the medical decision making process will be conducted by additional ED providers. Dictation of this chart was performed using voice recognition software; therefore, there may be some unintended grammatical errors. TRAVEL OUTSIDE OF THE [place] IN LAST 30 DAYS: No - Related Data Allergies/Adverse Reactions: No Known Allergies Allergy (Verified 06/09/19 16:24) Past Medical History - Past Medical History Cardiac Medical History: Denies: Hx Coronary Artery Disease, Hx Heart Attack, Hx Hypertension Pulmonary Medical History: Reports: Hx Asthma, Hx Bronchitis, Hx Pneumonia Neurological Medical History: Reports: Hx Migraine Renal/ Medical History: Denies: Hx Peritoneal Dialysis GI Medical History: Reports: Hx Hiatal Hernia, Hx Ulcer - not a bleeding ulcer. Denies: Hx Hepatitis Musculoskeltal Medical History: Reports Hx Arthritis - back, Reports Hx Musculoskeletal Deformity - scoliosis, bunion, hammer toe, Reports Hx Musculoskeletal Trauma Traumatic Medical History: Reports: Hx Fractures - toes Infectious Medical History: Denies: Hx Hepatitis Past Surgical History: Reports: Hx Hysterectomy, Hx Inguinal Hernia, Hx Orthopedic Surgery - Left foot surgery x 3. Denies: Hx Mastectomy, Hx Open Heart Surgery, Hx Pacemaker - Immunizations Hx Diphtheria, Pertussis, Tetanus Vaccination: Yes History of Influenza Vaccine for 06/2017 - 11/2017 Season: No Physical Exam - Vital signs Vitals: Temp Pulse Resp BP Pulse Ox 98.6 F 66 18 104/78 98 06/09/19 16:33 06/09/19 16:33 06/09/19 16:33 06/09/19 16:33 06/09/19 16:33 Course - Vital Signs Vital signs: Temp Pulse Resp BP Pulse Ox 98.6 F 66 18 104/78 98 06/09/19 16:33 06/09/19 16:33 06/09/19 16:33 06/09/19 16:33 06/09/19 16:33
[2019-06-09 17:23] LABS: ABSOLUTE BASOPHILS # (AUTO) 0.1 10^3/uL (0.0-0.2); ABSOLUTE EOSINOPHILS # (AUTO) 0.2 10^3/uL (0.0-0.6); ABSOLUTE LYMPHOCYTES (AUTO) 2.4 10^3/uL (0.5-4.7); ABSOLUTE MONOCYTES (AUTO) 0.4 10^3/uL (0.1-1.4); ABSOLUTE NEUT (AUTO) 1.3 10^3/uL (1.7-8.2); BASOPHILS % (AUTO) 2.1 % (0-2); EOSINOPHILS % (AUTO) 5.7 % (0-6); HEMATOCRIT 38.6 % (36.0-47.0); HEMOGLOBIN 13.4 g/dL (12.0-15.5); MEAN CORPUSCULAR HEMOGLOBIN 31.2 pg (27.0-33.4); MEAN CORPUSCULAR HGB CONC 34.7 g/dL (32.0-36.0); MEAN CORPUSCULAR VOLUME 90 fl (80-97); MONOCYTES % (AUTO) 8.3 % (3-13); PLATELET COUNT 217 10^3/uL (150-450); RED BLOOD COUNT 4.29 10^6/uL (3.72-5.28); SEGMENTED NEUTROPHILS % (AUTO) 28.9 % (42-78); TOTAL CELLS COUNTED % (AUTO) 100 %; WHITE BLOOD COUNT 4.4 10^3/uL (4.0-10.5)
--- NOTE | 2019-06-09 17:23 | RADIOLOGY REPORT (SQ) ---
EXAM DESCRIPTION: CHEST 2 VIEWS COMPLETED DATE/TIME: 06/09/2019 5:07 pm REASON FOR STUDY: cp COMPARISON: 01/25/2016 EXAM PARAMETERS: NUMBER OF VIEWS: two views TECHNIQUE: Digital Frontal and Lateral radiographic views of the chest acquired. RADIATION DOSE: NA LIMITATIONS: none FINDINGS: LUNGS AND PLEURA: No opacities, masses or pneumothorax. No pleural effusion. MEDIASTINUM AND HILAR STRUCTURES: No masses or contour abnormalities. HEART AND VASCULAR STRUCTURES: Heart normal size. No evidence for failure. BONES: No acute findings. HARDWARE: None in the chest. OTHER: No other significant finding. IMPRESSION: NO ACUTE RADIOGRAPHIC FINDING IN THE CHEST. TECHNICAL DOCUMENTATION: JOB ID: [id number] [employer]- All Rights Reserved Reading location - IP/workstation name: [email or web address]
[2019-06-09 17:25] LABS: APPEARANCE,URINE CLEAR; BILIRUBIN,URINE NEGATIVE (NEGATIVE); COLOR,URINE YELLOW; GLUCOSE, URINE NEGATIVE (NEGATIVE); KETONES,URINE NEGATIVE (NEGATIVE); LEUKOCYTE ESTERASE,URINE NEGATIVE (NEGATIVE); NITRITE,URINE NEGATIVE (NEGATIVE); PROTEIN,URINE NEGATIVE (NEGATIVE); UROBILINOGEN,URINE NEGATIVE mg/dL (<2.0)
[2019-06-09 17:49] LABS: ALBUMIN 3.5 g/dL (3.5-5.0); ALKALINE PHOSPHATASE 73 U/L (38-126); ANION GAP 6 (5-19); ASPARTATE AMINO TRANSFERASE 22 U/L (14-36); BILIRUBIN,TOTAL 0.6 mg/dL (0.2-1.3); BLOOD UREA NITROGEN 15 mg/dL (7-20); CARBON DIOXIDE 27 mmol/L (22-30); CHLORIDE 105 mmol/L (98-107); CREATINE KINASE 105 U/L (30-135); GLUCOSE 86 mg/dL (75-110); POTASSIUM 4.1 mmol/L (3.6-5.0); TOTAL PROTEIN 6.2 g/dL (6.3-8.2)
[2019-06-09] MEDS ORDERED: KETOROLAC TROMETHAMINE INJ/PF 30 MG/1 ML SDV IV ONE (18:16)
[2019-06-09] MEDS ORDERED: ALBUTEROL SULFATE HFA (90 MCG/PUFF) 8 GM MDI (1 MDI/ER DISP) IH ONE (18:24)
--- NOTE | 2019-06-09 18:34 | ER Document Report ---
ED General - General Chief Complaint: Chest Pain Stated Complaint: CHEST PAIN Time Seen by Provider: 06/09/19 16:30 Primary Care Provider: JOSEPH LOPEZ MD [Primary Care Provider] - Follow up as needed Mode of Arrival: Medic TRAVEL OUTSIDE OF THE [place] IN LAST 30 DAYS: No - HPI Notes: Patient presents with waking up this morning and having pressure type chest pain that squeezing that goes from the front of her chest to the back worse with deep breaths. She does not have a history of heart attack or stroke. Upon discussion she is low risk heart score and PERC negative. Does not take any medications on a daily basis. She is a daily smoker. No recent cough congestion fevers or illnesses. No nausea vomiting or diarrhea. She did have a mild headache upon arrival but no longer has a headache without intervention. Was sent by her primary care doctor for evaluation of her chest pain. - Related Data Allergies/Adverse Reactions: No Known Allergies Allergy (Verified 06/09/19 16:24) Past Medical History - General Information source: Patient - Social History Smoking Status: Current Every Day Smoker Frequency of alcohol use: Rare Drug Abuse: None Family History: Arthritis, CAD, CVA, DM, Hyperlipidemia, Hypertension Patient has suicidal ideation: No Patient has homicidal ideation: No - Past Medical History Cardiac Medical History: Denies: Hx Coronary Artery Disease, Hx Heart Attack, Hx Hypertension Pulmonary Medical History: Reports: Hx Asthma, Hx Bronchitis, Hx Pneumonia Neurological Medical History: Reports: Hx Migraine Renal/ Medical History: Denies: Hx Peritoneal Dialysis GI Medical History: Reports: Hx Hiatal Hernia, Hx Ulcer - not a bleeding ulcer. Denies: Hx Hepatitis Musculoskeletal Medical History: Reports Hx Arthritis - back, Reports Hx Musculoskeletal Deformity - scoliosis, bunion, hammer toe, Reports Hx Musculoskeletal Trauma Traumatic Medical History: Reports: Hx Fractures - toes Infectious Medical History: Denies: Hx Hepatitis Past Surgical History: Reports: Hx Hysterectomy, Hx Inguinal Hernia, Hx Orthopedic Surgery - Left foot surgery x 3. Denies: Hx Mastectomy, Hx Open Heart Surgery, Hx Pacemaker - Immunizations Hx Diphtheria, Pertussis, Tetanus Vaccination: Yes Review of Systems - Review of Systems Constitutional: No symptoms reported EENT: No symptoms reported Cardiovascular: See HPI Respiratory: No symptoms reported Gastrointestinal: No symptoms reported Genitourinary: No symptoms reported Female Genitourinary: No symptoms reported Musculoskeletal: No symptoms reported Skin: No symptoms reported Hematologic/Lymphatic: No symptoms reported Neurological/Psychological: No symptoms reported Physical Exam - Vital signs Vitals: Temp Pulse Resp BP Pulse Ox 98.6 F 66 18 104/78 98 06/09/19 16:33 06/09/19 16:33 06/09/19 16:33 06/09/19 16:33 06/09/19 16:33 - General General appearance: Appears well, Alert - HEENT Head: Normocephalic, Atraumatic Eyes: Normal Conjunctiva: Normal Cornea: Normal Extraocular movements intact: Yes Pupils: PERRL - Respiratory Respiratory status: No respiratory distress Chest status: Nontender Breath sounds: Normal Chest palpation: Normal - Cardiovascular Rhythm: Regular Heart sounds: Normal auscultation Murmur: No Friction rub: No Manfred's crunch: No Gallop: None auscultated - Abdominal Inspection: Normal Distension: No distension Bowel sounds: Normal Tenderness: Nontender - Back Back: Normal, Nontender - Extremities General upper extremity: Normal inspection, Normal ROM General lower extremity: Normal inspection, Normal ROM - Neurological Neuro grossly intact: Yes Cognition: Normal Orientation: AAOx4 - Psychological Associated symptoms: Normal affect Course - Re-evaluation Re-evalutation: 06/09/19 18:33 Patient does not have any concerning findings on EKG and initial work-up is negative with negative troponin negative chest x-ray. She is a daily smoker provide Toradol and albuterol puffer and reassess. His heart score and PERC negative. No heart enlargement and no friction rub to suggest pericarditis at this time. Low risk for dissection or aneurysm with normal chest x-ray. 06/09/19 19:49 Patient symptoms improved and nonexistent after inhalation of albuterol puffer. Symptoms consistent with pleurisy she does smoke every day including marijuana. About 5 days of steroids and albuterol puffer. She is to follow-up with her primary care doctor sent her here if symptoms are not improving in the next 2 to 3 days. - Vital Signs Vital signs: Temp Pulse Resp BP Pulse Ox 98.6 F 66 18 104/78 98 06/09/19 16:33 06/09/19 16:33 06/09/19 16:33 06/09/19 16:33 06/09/19 16:33 - Laboratory Result Diagrams: 06/09/19 17:08 06/09/19 17:08 Laboratory results interpreted by me: 06/09/19 06/09/19 06/09/19 16:50 17:08 17:08 Lymph % (Auto) 55.0 H Baso % (Auto) 2.1 H Absolute Neuts (auto) 1.3 L Seg Neutrophils % 28.9 L Total Protein 6.2 L Urine Blood MODERATE H Discharge - Discharge Clinical Impression: Pleurisy Condition: Good Disposition: HOME, SELF-CARE Additional Instructions: You can use albuterol puffer 1-2 to puffs every 4-6 hours as needed Prescriptions: Prednisone [Deltasone 20 mg Tablet] 2 tab PO DAILY 5 Days tablet Referrals: JOSEPH LOPEZ MD [Primary Care Provider] - Follow up in 3-5 days (If symptoms are not improving)
--- NOTE | 2019-06-09 18:37 | EKG REPORT ---
SEVERITY:- NORMAL ECG - SINUS RHYTHM ST ELEV, PROBABLE NORMAL EARLY REPOL PATTERN : Confirmed by: Paul Young MD 09-Jun-2019 18:36:54
== END 2019-06-09 20:28 | disposition home or self-care (01) ==
LOC: ER 16:23
DX: R09.1 Pleurisy (principal); R07.89 Other chest pain; J45.909 Unspecified asthma, uncomplicated; F17.200 Nicotine dependence, unspecified, uncomplicated; Z82.49 Family history of ischemic heart disease and other diseases of the circulatory system
CPT/HCPCS: 93005; 99285; 96374; 36415; 82550; 83690; 85025; 80053; 81001; 84484; 71046; 93010; J1885; J3490

== ENCOUNTER 2019-06-10 14:28 | Emergency (ER) | payer MEDICAID ==
[2019-06-10 14:36] VITALS: BP 107/57
--- NOTE | 2019-06-10 15:16 | ER Document Report ---
ED General - General Chief Complaint: Shortness Of Breath Stated Complaint: SHORTNESS OF BREATH Time Seen by Provider: 06/10/19 15:11 Primary Care Provider: JOSEPH LOPEZ MD [Primary Care Provider] - Follow up in 3-5 days TRAVEL OUTSIDE OF THE [place] IN LAST 30 DAYS: No - HPI Notes: 43-year-old female to the emergency department for prescription of steroids. She states that she was seen here yesterday for shortness of breath and inspiratory chest pain and was diagnosed with pleurisy. She states that she was supposed to get a prescription of steroids to go home with but she left before she got the prescription because her child needed car for work. She states that she feels much better today and she really is only here for her steroids. She states that her shortness of breath and respiratory chest pain is improved and only mild. She states that today she feels like she can walk around without any difficulty and has not had worsening of her symptoms. - Related Data Allergies/Adverse Reactions: No Known Allergies Allergy (Verified 06/09/19 16:24) Past Medical History - General Information source: Patient - Social History Smoking Status: Current Every Day Smoker Frequency of alcohol use: None Drug Abuse: None Family History: Arthritis, CAD, CVA, DM, Hyperlipidemia, Hypertension Patient has suicidal ideation: No Patient has homicidal ideation: No - Past Medical History Cardiac Medical History: Denies: Hx Coronary Artery Disease, Hx Heart Attack, Hx Hypertension Pulmonary Medical History: Reports: Hx Asthma, Hx Bronchitis, Hx Pneumonia Neurological Medical History: Reports: Hx Migraine Renal/ Medical History: Denies: Hx Peritoneal Dialysis GI Medical History: Reports: Hx Hiatal Hernia, Hx Ulcer - not a bleeding ulcer. Denies: Hx Hepatitis Musculoskeletal Medical History: Reports Hx Arthritis - back, Reports Hx Musculoskeletal Deformity - scoliosis, bunion, hammer toe, Reports Hx Musculoskeletal Trauma Traumatic Medical History: Reports: Hx Fractures - toes Infectious Medical History: Denies: Hx Hepatitis Past Surgical History: Reports: Hx Hysterectomy, Hx Inguinal Hernia, Hx Orthopedic Surgery - Left foot surgery x 3. Denies: Hx Mastectomy, Hx Open Heart Surgery, Hx Pacemaker - Immunizations Hx Diphtheria, Pertussis, Tetanus Vaccination: Yes Review of Systems - Review of Systems Constitutional: denies: Chills, Fever EENT: No symptoms reported Cardiovascular: See HPI Respiratory: See HPI, Hurts to breathe, Short of breath. denies: Wheezing Gastrointestinal: denies: Abdominal pain, Diarrhea, Nausea, Vomiting Genitourinary: No symptoms reported Neurological/Psychological: No symptoms reported -: Yes All other systems reviewed and negative Physical Exam - Vital signs Vitals: Temp Pulse Resp BP Pulse Ox 98.8 F 79 16 107/57 L 100 06/10/19 14:32 06/10/19 14:32 06/10/19 14:32 06/10/19 14:32 06/10/19 14:32 Interpretation: Normal - General General appearance: Appears well, Alert In distress: None Notes: Patient looks very well and states that she is much improved since yesterday's visit. - HEENT Head: Normocephalic, Atraumatic Eyes: Normal Pupils: PERRL - Respiratory Respiratory status: No respiratory distress Chest status: Tender - Mild tenderness to palpation over the anterior left chest wall with no step-off or crepitus. Patient does have a little bit of increased pain with big deep breath., Pain with deep breathing. No: Accessory muscle use, Prolonged expirations Breath sounds: Normal. No: Decreased air movement, Rales, Rhonchi, Stridor, Wheezing Chest palpation: Normal - Cardiovascular Rhythm: Regular Heart sounds: Normal auscultation Murmur: No - Back Back: Normal, Nontender - Neurological Neuro grossly intact: Yes Cognition: Normal Orientation: AAOx4 Howie Coma Scale Eye Opening: Spontaneous Howie Coma Scale Verbal: Oriented Howie Coma Scale Motor: Obeys Commands Howie Coma Scale Total: 15 Speech: Normal Motor strength normal: LUE, RUE, LLE, RLE Sensory: Normal - Psychological Associated symptoms: Normal affect, Normal mood - Skin Skin Temperature: Warm Skin Moisture: Dry Skin Color: Normal Course - Re-evaluation Re-evalutation: 06/10/19 Patient here for prescription for steroids that she did not receive because she left prior to her discharge instructions yesterday. She states she is feeling much better today. She states that her shortness of breath and chest pain have improved. She was diagnosed with pleurisy yesterday. She had a chest x-ray and lab work. I have ambulated her about the emergency department and she maintained her oxygen level and did not become tachycardic. She states that she feels very well but would like that prescription. Do not think that her labs need to be repeated or imaging studies repeated. Her vital signs are very reassuring. We will send home with prednisone and have her follow-up with primary care physician. Educated against smoking cessation again. - Vital Signs Vital signs: Temp Pulse Resp BP Pulse Ox 98.8 F 79 16 107/57 L 100 06/10/19 14:32 06/10/19 14:32 06/10/19 14:32 06/10/19 14:32 06/10/19 14:32 Discharge - Discharge Clinical Impression: Medication management, Pleurisy Condition: Stable Disposition: HOME, SELF-CARE Instructions: Pleurisy ([facility]) Additional Instructions: TAKE ALL MEDICINE PRESCRIBED. CONTINUE USE OF INHALER WELL. COMPLETE STEROIDS. RETURN IF WORSENING PAIN OR ANY OTHER CONCERNS. Prescriptions: Prednisone [Deltasone 20 mg Tablet] 2 tab PO DAILY 5 Days #10 tablet Referrals: JOSEPH LOPEZ MD [Primary Care Provider] - Follow up in 3-5 days
== END 2019-06-10 15:23 | disposition home or self-care (01) ==
LOC: ER 14:28
DX: R09.1 Pleurisy (principal); R06.02 Shortness of breath; R07.1 Chest pain on breathing; F17.200 Nicotine dependence, unspecified, uncomplicated; J45.909 Unspecified asthma, uncomplicated

== ENCOUNTER → 2019-06-17 | Outpatient (CLI) | payer MEDICAID ==
[2019-06-17 10:56] LABS: HEMATOCRIT 38.9 % (36.0-47.0); HEMOGLOBIN 13.2 g/dL (12.0-15.5); MEAN CORPUSCULAR HEMOGLOBIN 30.9 pg (27.0-33.4); MEAN CORPUSCULAR VOLUME 91 fl (80-97); PLATELET COUNT 247 10^3/uL (150-450); RED BLOOD COUNT 4.27 10^6/uL (3.72-5.28); RED CELL DISTRIBUTION WIDTH 13.3 % (11.5-14.0); WHITE BLOOD COUNT 6.6 10^3/uL (4.0-10.5)
[2019-06-17 11:15] LABS: ALBUMIN 3.4 g/dL (3.5-5.0); ALKALINE PHOSPHATASE 70 U/L (38-126); ASPARTATE AMINO TRANSFERASE 19 U/L (14-36); BILIRUBIN,TOTAL 0.8 mg/dL (0.2-1.3); BLOOD UREA NITROGEN 18 mg/dL (7-20); CALCIUM 8.9 mg/dL (8.4-10.2); CHOLESTEROL 230.74 mg/dL (0-200); GLUCOSE 84 mg/dL (75-110); POTASSIUM 4.5 mmol/L (3.6-5.0); TOTAL PROTEIN 6.1 g/dL (6.3-8.2); TRIGLYCERIDES 108 mg/dL (<150)
[2019-06-17 11:19] LABS: CARBON DIOXIDE 30 mmol/L (22-30); CHLORIDE 104 mmol/L (98-107)
[2019-06-17 11:25] LABS: DIRECT LDL 147 mg/dL (<100)
[2019-06-17 12:34] LABS: ANION GAP 4 (5-19)
== END ==
LOC: LAB 10:27
PROVIDERS: ATTEND Internal Medicine Cardiovascular Disease
DX: E78.5 Hyperlipidemia, unspecified (principal); R07.9 Chest pain, unspecified; R00.2 Palpitations; R20.2 Paresthesia of skin
CPT/HCPCS: 36415; 80048; 80061; 80076; 82607; 82746; 83036; 83735; 84443; 85027

== ENCOUNTER → 2019-07-01 | Outpatient (CLI) | payer MEDICAID, OTHER ==
--- NOTE | 2019-07-03 10:07 | Pulmonary Function Test ---
Pulmonary Function Test Date of Procedure:: 07/01/19 INDICATION:: Dyspnea Referring Provider: Dr.A. 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 Mild decrease in diffusion capacity.
== END ==
LOC: RT 08:19
PROVIDERS: ATTEND Internal Medicine Cardiovascular Disease
DX: J45.998 Other asthma (principal); R06.02 Shortness of breath
CPT/HCPCS: 94010; 94729

== ENCOUNTER → 2019-08-19 | Outpatient (CLI) | payer OTHER ==
--- NOTE | 2019-08-20 22:31 | XCELERA REPORT ---
[address] [address] Transthoracic Echocardiogram Report Name: PATT FOWLER Age: 43 yrs Gender: Female : 1975 Patient Status: Outpatient Patient Location: Study Date: 08/19/2019 10:21 AM Height: 66 in Weight: 140 lb BSA: 1.7 m2 Reason For Study: CP Ordering Physician: EZEQUIEL SAMSON Performed By: Parviz Mendez Interpretation Summary Normal ECHO. MMode/2D Measurements & Calculations RVDd: 2.3 cm LVIDd: 4.2 cm FS: 32.6 % Ao root diam: 2.5 cm IVSd: 0.90 cm LVIDs: 2.8 cm EDV(Teich): Ao root area: LVPWd: 0.86 cm 78.2 ml ESV(Teich): 5.0 cm2 30.2 ml LA dimension: 2.7 cm EF(Teich): 61.4 % LVLd ap4: 7.3 cm SV(MOD-sp4): EDV(MOD-sp4): 41.0 ml 69.0 ml LVLs ap4: 6.2 cm ESV(MOD-sp4): 28.0 ml EF(MOD-sp4): 59.4 % Doppler Measurements & Calculations MV E max rosy: MV P1/2t max rosy: Ao V2 max: LV V1 max P.0 cm/sec 61.5 cm/sec 107.7 cm/sec 2.9 mmHg MV A max rosy: MV P1/2t: 111.7 msec Ao max PG: LV V1 max: 51.2 cm/sec 4.6 mmHg 84.7 cm/sec MV E/A: 1.2 MVA(P1/2t): 2.0 cm2 MV dec slope: 161.4 cm/sec2 MV dec time: 0.25 sec PA V2 max: MV P1/2t-pr_phl: 68.4 cm/sec 111.7 msec PA max P.9 mmHg Left Ventricle The left ventricle is normal in size, thickness and function. There is normal left ventricular wall thickness. The left ventricular ejection fraction is within normal limits. The Ejection Fraction estimate is 60-65%. Doppler measurements suggest normal left ventricular diastolic function. No regional wall motion abnormalities noted. There is no thrombus. Right Ventricle The right ventricle is grossly normal size. Atria The right atrium is normal. The left atrial size is normal. The interatrial septum is intact with no evidence for an atrial septal defect. Mitral Valve There is mild mitral annular calcification. The mitral valve is normal in structure and function. There is no evidence of mitral valve prolapse. There is no mitral valve stenosis. There is a mild amount of mitral regurgitation. Aortic Valve The aortic valve is normal in structure and functions normally. The aortic valve is trileaflet. The aortic valve opens well. There is no aortic valvular vegetation. There is no aortic valve stenosis. No aortic regurgitation is present. Tricuspid Valve The tricuspid valve is not well visualized, but is grossly normal. There is no tricuspid valve prolapse. There is no tricuspid stenosis. There is a trace or physiologic amount of tricuspid regurgitation. Pulmonic Valve The pulmonic valve is not well visualized. Great Vessels The aortic root is normal size. Effusions Minimal pericardial effusion. I WMSI = 1.00 % Normal = 100 Segments Size X - Cannot 2 - 4 - 1-2 small Interpret 1 - Normal Hypokinetic 3 - AkineticDyskinetic 3-5 moderate 5 - 6-14 large Aneurysmal 15-16 diffuse : EZEQUIEL SAMSON, Paul
== END ==
LOC: SP 09:57
PROVIDERS: ATTEND Physician Assistant
DX: R07.9 Chest pain, unspecified (principal); R00.2 Palpitations
CPT/HCPCS: 93306

== ENCOUNTER 2019-09-01 16:48 | Emergency (ER) | payer OTHER ==
[2019-09-01 17:07] VITALS: BP 114/73
[2019-09-01] MEDS ORDERED: IPRATROPIUM/ALBUTEROL 0.5-2.5 MG/3 ML AMPUL NEB ONE (17:40)
--- NOTE | 2019-09-01 17:40 | ER Document Report ---
ED Medical Screen (RME) - General Chief Complaint: Back Pain Stated Complaint: MID BACK PAIN,COUGH,NAUSEA Time Seen by Provider: 09/01/19 17:31 Primary Care Provider: EZEQUIEL SAMSON PA-C [Primary Care Provider] - Follow up as needed TRAVEL OUTSIDE OF THE [place] IN LAST 30 DAYS: No - HPI Notes: 09/01/19 17:37 43-year-old female presents to the emergency room with complaints of cough, wheezing, spitting up blood with left-sided thoracic back pain, worse with movement and deep breaths. patient does take a baby aspirin daily. Reports some nausea. Denies any trauma. Patient denies any new medications foods or travel. Denies any chest pain. Pain is 5 out of 10, throbbing and constant. Denies past medical history. Non-smoker. Worse with time, nothing makes better . Has not tried any ibuprofen or Tylenol for pain. Denies any fevers or chills. Denies history of asthma. I have greeted and performed a rapid initial assessment of this patient. A comprehensive ED assessment and evaluation of the patient, analysis of test results and completion of the medical decision making process will be conducted by additional ED providers. PHYSICAL EXAMINATION: GENERAL: Well-appearing, well-nourished and in no acute distress. HEAD: Atraumatic, normocephalic. EYES: Pupils equal round extraocular movements intact, conjunctiva are normal. ENT: Nares patent NECK: Normal range of motion LUNGS: diminished breath sounds in upper lobes Musculoskeletal: Normal range of motion NEUROLOGICAL: Normal speech, normal gait. PSYCH: Normal mood, normal affect. SKIN: Warm, Dry, normal turgor, no rashes or lesions noted. - Related Data Allergies/Adverse Reactions: No Known Allergies Allergy (Verified 09/01/19 17:26) Past Medical History - Social History Chew tobacco use (# tins/day): No Frequency of alcohol use: Rare Drug Abuse: Marijuana - Past Medical History Cardiac Medical History: Denies: Hx Coronary Artery Disease, Hx Heart Attack, Hx Hypertension Pulmonary Medical History: Reports: Hx Asthma, Hx Bronchitis, Hx Pneumonia Neurological Medical History: Reports: Hx Migraine Renal/ Medical History: Denies: Hx Peritoneal Dialysis GI Medical History: Reports: Hx Hiatal Hernia, Hx Ulcer - not a bleeding ulcer. Denies: Hx Hepatitis Musculoskeltal Medical History: Reports Hx Arthritis - back, Reports Hx Musculoskeletal Deformity - scoliosis, bunion, hammer toe, Reports Hx Musculoskeletal Trauma Traumatic Medical History: Reports: Hx Fractures - toes Infectious Medical History: Denies: Hx Hepatitis Past Surgical History: Reports: Hx Hysterectomy, Hx Inguinal Hernia, Hx Orthopedic Surgery - Left foot surgery x 3. Denies: Hx Mastectomy, Hx Open Heart Surgery, Hx Pacemaker - Immunizations Hx Diphtheria, Pertussis, Tetanus Vaccination: Yes Physical Exam - Vital signs Vitals: Temp Pulse Resp BP Pulse Ox 98.5 F 81 18 114/73 99 09/01/19 16:53 09/01/19 16:53 09/01/19 16:53 09/01/19 16:53 09/01/19 16:53 Course - Vital Signs Vital signs: Temp Pulse Resp BP Pulse Ox 98.5 F 81 18 114/73 99 09/01/19 17:26 09/01/19 17:26 09/01/19 17:26 09/01/19 17:26 09/01/19 17:26 Doctor's Discharge - Discharge Referrals: EZEQUIEL SAMSON PA-C [Primary Care Provider] - Follow up as needed
[2019-09-01 18:16] LABS: APPEARANCE,URINE CLEAR; BILIRUBIN,URINE NEGATIVE (NEGATIVE); COLOR,URINE COLORLESS; GLUCOSE, URINE NEGATIVE (NEGATIVE); INTERNATIONAL RATION (INR) 0.93; KETONES,URINE NEGATIVE (NEGATIVE); LEUKOCYTE ESTERASE,URINE NEGATIVE (NEGATIVE); NITRITE,URINE NEGATIVE (NEGATIVE); PROTEIN,URINE NEGATIVE (NEGATIVE); PROTHROMBIN TIME 12.5 SEC (11.4-15.4); URINE SPECIFIC GRAVITY 1.002; UROBILINOGEN,URINE NEGATIVE mg/dL (<2.0)
[2019-09-01 18:17] LABS: HEMATOCRIT 40.6 % (36.0-47.0); HEMOGLOBIN 14.1 g/dL (12.0-15.5); LYMPHOCYTES % (AUTO) 59.3 % (13-45); MEAN CORPUSCULAR HEMOGLOBIN 31.1 pg (27.0-33.4); MEAN CORPUSCULAR HGB CONC 34.7 g/dL (32.0-36.0); MEAN CORPUSCULAR VOLUME 90 fl (80-97); MONOCYTES % (AUTO) 8.6 % (3-13); PARTIAL THROMBOPLASTIN TIME 29.9 SEC (23.5-35.8); PLATELET COUNT 245 10^3/uL (150-450); RED BLOOD COUNT 4.52 10^6/uL (3.72-5.28); RED CELL DISTRIBUTION WIDTH 13.3 % (11.5-14.0); SEGMENTED NEUTROPHILS % (AUTO) 26.1 % (42-78)
[2019-09-01 18:18] LABS: ABSOLUTE BASOPHILS # (AUTO) 0.1 10^3/uL (0.0-0.2); ABSOLUTE EOSINOPHILS # (AUTO) 0.2 10^3/uL (0.0-0.6); ABSOLUTE MONOCYTES (AUTO) 0.4 10^3/uL (0.1-1.4); ABSOLUTE NEUT (AUTO) 1.3 10^3/uL (1.7-8.2); BASOPHILS % (AUTO) 1.1 % (0-2); EOSINOPHILS % (AUTO) 4.9 % (0-6); TOTAL CELLS COUNTED % (AUTO) 100 %
--- NOTE | 2019-09-01 18:25 | RADIOLOGY REPORT (SQ) ---
EXAM DESCRIPTION: CHEST 2 VIEWS COMPLETED DATE/TIME: 09/01/2019 6:06 pm REASON FOR STUDY: left lung pain, coughing up blood/no trauma COMPARISON: PA and lateral views of the chest from 06/09/2019 EXAM PARAMETERS: NUMBER OF VIEWS: two views TECHNIQUE: PA and lateral views of the chest were obtained. RADIATION DOSE: NA LIMITATIONS: none FINDINGS: LUNGS AND PLEURA: No consolidation, pleural effusion or pneumothorax. MEDIASTINUM AND HILAR STRUCTURES: No mediastinal or hilar contour abnormality. HEART AND VASCULAR STRUCTURES: The cardiac silhouette and pulmonary vasculature are within normal angelo its. BONES: No acute findings. HARDWARE: None in the chest. OTHER: No other finding. IMPRESSION: No acute cardiopulmonary process. TECHNICAL DOCUMENTATION: JOB ID: [id number] [employer] - [employer]- All Rights Reserved Reading location - IP/workstation name: [email or web address]
[2019-09-01 19:00] LABS: ALBUMIN 4.3 g/dL (3.5-5.0); ALKALINE PHOSPHATASE 85 U/L (38-126); ANION GAP 12 (5-19); ASPARTATE AMINO TRANSFERASE 29 U/L (14-36); BILIRUBIN,DIRECT 0.2 mg/dL (0.0-0.4); BILIRUBIN,TOTAL 0.6 mg/dL (0.2-1.3); BLOOD UREA NITROGEN 12 mg/dL (7-20); CALCIUM 9.7 mg/dL (8.4-10.2); CARBON DIOXIDE 22 mmol/L (22-30); CHLORIDE 106 mmol/L (98-107); GLUCOSE 95 mg/dL (75-110); POTASSIUM 4.1 mmol/L (3.6-5.0); TOTAL PROTEIN 7.7 g/dL (6.3-8.2)
--- NOTE | 2019-09-02 07:44 | EKG REPORT ---
SEVERITY:- ABNORMAL ECG - SINUS RHYTHM PROBABLE LEFT ATRIAL ABNORMALITY ST ELEVATION EARLY REPOLARISATION? NORMAL VARIANT. : Confirmed by: Paul Young MD 02-Sep-2019 07:43:52
== END 2019-09-01 18:50 | disposition left against medical advice (07) ==
LOC: ER 16:48
DX: Z53.21 Procedure and treatment not carried out due to patient leaving prior to being seen by health care provider (principal); M54.9 Dorsalgia, unspecified; R05 Cough; R11.0 Nausea; M54.6 Pain in thoracic spine
CPT/HCPCS: 36415; 71046; 80053; 81001; 85025; 85610; 85730

== ENCOUNTER 2019-10-13 15:40 | Emergency (ER) | payer OTHER ==
[2019-10-13 15:47] VITALS: BP 118/59
--- NOTE | 2019-10-13 15:51 | ER Document Report ---
ED Medical Screen (RME) - General Chief Complaint: Abscess Stated Complaint: ABSCESS Time Seen by Provider: 10/13/19 15:46 Primary Care Provider: EZEQUIEL SAMSON PA-C [PHYSICIAN SUPERVISOR [employer]] - Follow up as needed Mode of Arrival: Ambulatory Information source: Patient Notes: 44-year-old female presented to ED for complaint of a abscess to the left buttocks. She states this abscess has been present for about 4 days. She states she gets frequent abscesses to her buttocks since 2008 and when they get painful she comes the emergency room and have them cut open. Patient is alert oriented respirations regular nonlabored speaking in full sentences walks with a even steady gait. She states she is very nauseated and gagging but does not throw up. TRAVEL OUTSIDE OF THE [place] IN LAST 30 DAYS: No - HPI Onset: Other - 4 days Onset/Duration: Gradual, Worse Quality of pain: Throbbing Severity: Moderate Pain Level: 4 Associated Symptoms: Other - Abscess to the left buttocks Exacerbated by: Sitting, Movement, Walking Relieved by: Denies Similar symptoms previously: Yes - Related Data Smoking: Cigarettes Frequency of alcohol use: None Drug Abuse: Marijuana Allergies/Adverse Reactions: No Known Allergies Allergy (Verified 10/13/19 15:46) Past Medical History - General Information source: Patient - Social History Cigarette use (# per day): Yes Frequency of alcohol use: None Drug Abuse: Marijuana Family history: Reviewed & Not Pertinent - Past Medical History Cardiac Medical History: Reports: None Pulmonary Medical History: Reports: Hx Asthma, Hx Bronchitis, Hx Pneumonia EENT Medical History: Reports: None Neurological Medical History: Reports: Hx Migraine Renal/ Medical History: Reports: None Malignancy Medical History: Reports: None GI Medical History: Reports: Hx Hiatal Hernia, Hx Ulcer - not a bleeding ulcer Musculoskeltal Medical History: Reports Hx Arthritis - back, Reports Hx Musculoskeletal Deformity - scoliosis, bunion, hammer toe, Reports Hx Musculoskeletal Trauma Skin Medical History: Reports Hx Cellulitis Psychiatric Medical History: Reports: None Traumatic Medical History: Reports: Hx Fractures - toes Infectious Medical History: Reports: None Past Surgical History: Reports: Hx Hysterectomy, Hx Inguinal Hernia, Hx Orthopedic Surgery - Left foot surgery x 3 - Immunizations Hx Diphtheria, Pertussis, Tetanus Vaccination: Yes Review of Systems - Review of Systems Constitutional: No symptoms reported EENT: No symptoms reported Cardiovascular: No symptoms reported Respiratory: No symptoms reported Gastrointestinal: No symptoms reported Genitourinary: No symptoms reported Female Genitourinary: No symptoms reported Musculoskeletal: No symptoms reported Skin: Other Hematologic/Lymphatic: No symptoms reported Neurological/Psychological: No symptoms reported -: Yes All other systems reviewed and negative Physical Exam - Vital signs Vitals: Temp Pulse Resp BP Pulse Ox 98.4 F 119 H 18 118/59 L 98 10/13/19 15:45 10/13/19 15:45 10/13/19 15:45 10/13/19 15:45 10/13/19 15:45 Interpretation: Normal - General General appearance: Appears well, Alert - HEENT Head: Normocephalic, Atraumatic Eyes: Normal Pupils: PERRL - Respiratory Respiratory status: No respiratory distress Chest status: Nontender Breath sounds: Normal Chest palpation: Normal - Cardiovascular Rhythm: Regular Heart sounds: Normal auscultation Murmur: No - Abdominal Inspection: Normal Distension: No distension Bowel sounds: Normal Tenderness: Nontender Organomegaly: No organomegaly - Back Back: Normal, Nontender - Extremities General upper extremity: Normal inspection, Nontender, Normal color, Normal ROM, Normal temperature General lower extremity: Normal inspection, Nontender, Normal color, Normal ROM, Normal temperature, Normal weight bearing. No: Mark's sign - Neurological Neuro grossly intact: Yes Cognition: Normal Orientation: AAOx4 Howie Coma Scale Eye Opening: Spontaneous Howie Coma Scale Verbal: Oriented Howie Coma Scale Motor: Obeys Commands [place] Coma Scale Total: 15 Speech: Normal Motor strength normal: LUE, RUE, LLE, RLE Sensory: Normal - Psychological Associated symptoms: Normal affect, Normal mood - Skin Skin Temperature: Warm Skin Moisture: Dry Skin Color: Normal Skin irregularity: Abscess Location of irregularity: Other - Perianal/perineal left buttocks Irregularity with: Swelling, Tenderness, Warmth, Inflammation Course - Vital Signs Vital signs: Temp Pulse Resp BP Pulse Ox 98.4 F 119 H 18 118/59 L 98 10/13/19 15:45 10/13/19 15:45 10/13/19 15:45 10/13/19 15:45 10/13/19 15:45 Procedures - Incision and Drainage Left Buttock Time completed: 15:55 Type: Simple Anesthetic type: 1% Lidocaine mL's of anesthetic: 6 Blade size: 11 I&D procedure: Shurclens applied, Iodoform packing placed, Sterile dressing applied Incision Method: Incision made by scalpel Amount/type of drainage: large amount purulent Doctor's Discharge - Discharge Clinical Impression: Abscess, perianal Condition: Stable Disposition: HOME, SELF-CARE Additional Instructions: ABSCESS: You have an abscess (boil). This a pus-forming infection, usually due to staph. Some boils may be left to drain on their own, but most require lancing. From the time the tender lump first appears, it may be three or four days before the abscess is ready to deb. Local heat and rest help at this stage of treatment. An antibiotic may prevent spread of the infection. Once the abscess is opened, packing may be placed into it. This is done so pus is not sealed inside by premature closure of the cavity. The packing will be removed at your follow-up visit or you may be advised to remove it yourself at home. Sometimes this packing must be replaced a few times during healing. The wound will heal with surprisingly little scar. Depending on the size and location of an abscess, healing can take one to four weeks. You may shower and wash the area around the incision site two or three times a day. Antibiotics may be prescribed, but are usually not necessary after an abscess has been drained. If you develop fever, chills, worsening pain, or increasing swelling in the area, call the doctor or return immediately. POST INCISION AND DRAINAGE: You have had an incision made to allow drainage of an abscess. The incision must remain open so that pus and debris can drain from the wound. If the abscess cavity is large, packing is placed. This keeps the tissues from collapsing and trapping pus inside, while the body shrinks the cavity. The packing may need to be replaced every day or two. The physician will instruct you on the packing. Keep a bulky dressing over the area. Replace it if it becomes saturated with blood or pus. Do not disturb the packing (if present). You may shower and cleanse the area with gentle soap and warm water two or three times a day. Local warmth may be soothing, and may promote faster healing. Return if you develop high fever or chills, or if you note spreading redness, increasing swelling, or increasing tenderness. ORAL NARCOTIC MEDICATION: You have been given a 3Leaf dispense pack for pain control. This medication is a narcotic. It's best taken with food, as nausea can result if taken on an empty stomach. Don't operate machinery or drive within six hours of taking this medication. Do not combine this medicine with alcohol, or with any medication which can cause sedation (such as cold tablets or sleeping pills) unless you get permission from the physician. Narcotics tend to cause constipation. If possible, drink plenty of fluids and eat a diet high in fiber and fruits. CEPHALEXIN: The antibiotic you've been prescribed is a member of the cephalosporin class. This type of antibiotic covers a wide variety of infections, including those of the skin, lungs, and urinary tract. It's useful for staph infections. This antibiotic is slightly similar to the penicillin family. In rare cases, a person who is allergic to penicillin will also be allergic to this medication. If you have had a severe allergic reaction to penicillin, and have not taken this antibiotic since that time, notify your doctor. Antibiotics which cover many germs ("broad spectrum" antibiotics) are more likely to cause diarrhea or "yeast" infections. Women prone to vaginal yeast problems may suffer an attack after taking this antibiotic. In infants, oral thrush (white spots "stuck" on the cheek) or yeast diaper rash may result. See your doctor if these problems occur. Call at once if you develop itching, hives, shortness of breath, or lightheadedness. TRIMETHOPRIM-SULFA: You have been given a prescription for trimethoprim-sulfa (TMS, Septra, Bactrim). This is a combination antibiotic of the sulfa class, often used for urinary tract infections, middle ear infections, bronchitis, shigella intestinal infection, and Pneumocystis pneumonia. TMS is usually well-tolerated. Occasional side effects include nausea and decreased appetite. Septra is not recommended for infants less than two months of age. Do not take this medication if you have experienced severe side effects or allergy to sulfa medicine. You should stop this medicine at once and contact your physician if you develop any rash, joint pain, shortness of breath, bruising, or jaundice (yellow color in the skin), or if you develop any other new or unusual symptoms. FOLLOW-UP CARE: Most simple abscesses will not require a follow up visit. If you had packing placed in the abscess, remove it as instructed by the physician. If you have been referred to a physician for follow-up care, call the physicians office for an appointment as you were instructed or within the next two days. If you experience worsening or a significant change in your symptoms, return to the Emergency Department at any time for re-evaluation. Prescriptions: Sulfamethoxazole/Trimethoprim [Bactrim Ds Tablet] 1 each PO BID #14 tablet Cephalexin Monohydrate [Keflex 500 mg Capsule] 500 mg PO QID #20 capsule Forms: Smoking Cessation Education, Return to Work Referrals: EZEQUIEL SAMSON PA-C [PHYSICIAN SUPERVISOR [employer]] - Follow up as needed
[2019-10-13] MEDS ORDERED: HYDROCODONE/ACETAMINOPHEN 5-325 MG (6 TAB/ER DISP) PO PRN (15:54)
[2019-10-13] MEDS ORDERED: SULFAMETHOXAZOLE/TRIMETHOPRIM 800-160 MG TABLET PO ONE (15:54)
[2019-10-13] MEDS ORDERED: CEPHALEXIN 500 MG CAPSULE PO ONE (15:54)
== END 2019-10-13 16:30 | disposition home or self-care (01) ==
LOC: ER 15:40
PROC: 0H98XZZ Drainage of Buttock Skin, External Approach (ICD-10-PCS; principal; 2019-10-13)
DX: L02.31 Cutaneous abscess of buttock (principal); J45.909 Unspecified asthma, uncomplicated; F17.210 Nicotine dependence, cigarettes, uncomplicated
CPT/HCPCS: 99283; 87070; 87205; 87075; 10060; A6266; 87077

== ENCOUNTER 2019-10-20 17:48 | Emergency (ER) | payer OTHER ==
[2019-10-20 18:10] VITALS: BP 111/64
--- NOTE | 2019-10-20 18:21 | ER Document Report ---
ED Medical Screen (RME) - General Chief Complaint: Sore Throat Stated Complaint: SORE THROAT RIGHT EAR PAIN Time Seen by Provider: 10/20/19 18:13 TRAVEL OUTSIDE OF THE [place] IN LAST 30 DAYS: No - HPI Notes: 10/20/19 18:18 44-year-old female presents the emergency room for complaints of feeling like she is swallowing pus because there is a mass or tumor to the right side of her neck states she is putting pressure on her right ear. patient states she has had a bleeding throat for the last 2 weeks reports fevers, denies any chest pain or shortness of breath. Patient is very concerned because she has been a cigarette smoker all of her life. Reports nausea denies vomiting. Patient feels like she has some swelling to the right side of her neck. Eating and drinking without issues. I have greeted and performed a rapid initial assessment of this patient. A comprehensive ED assessment and evaluation of the patient, analysis of test results and completion of the medical decision making process will be conducted by additional ED providers. PHYSICAL EXAMINATION: GENERAL: Well-appearing, well-nourished and in no acute distress. HEAD: Atraumatic, normocephalic. EYES: Pupils equal round extraocular movements intact, conjunctiva are normal. Noted erythema to right pharynx. Uvula midline. NECK: Normal range of motion. Scant right-sided cervical lymphadenopathy CV: s1, s2 regular LUNGS: No respiratory distress Musculoskeletal: Normal range of motion NEUROLOGICAL: Normal speech, normal gait. SKIN: Warm, Dry, normal turgor, no rashes or lesions noted. - Related Data Allergies/Adverse Reactions: No Known Allergies Allergy (Verified 10/13/19 15:46) Past Medical History - Social History Family history: Reviewed & Not Pertinent - Past Medical History Cardiac Medical History: Denies: Hx Coronary Artery Disease, Hx Heart Attack, Hx Hypertension Pulmonary Medical History: Reports: Hx Asthma, Hx Bronchitis, Hx Pneumonia Neurological Medical History: Reports: Hx Migraine Renal/ Medical History: Denies: Hx Peritoneal Dialysis GI Medical History: Reports: Hx Hiatal Hernia, Hx Ulcer - not a bleeding ulcer. Denies: Hx Hepatitis Musculoskeltal Medical History: Reports Hx Arthritis - back, Reports Hx Musculoskeletal Deformity - scoliosis, bunion, hammer toe, Reports Hx Musculoskeletal Trauma Skin Medical History: Reports Hx Cellulitis Traumatic Medical History: Reports: Hx Fractures - toes Infectious Medical History: Denies: Hx Hepatitis Past Surgical History: Reports: Hx Hysterectomy, Hx Inguinal Hernia, Hx Orthopedic Surgery - Left foot surgery x 3. Denies: Hx Mastectomy, Hx Open Hea rt Surgery, Hx Pacemaker - Immunizations Hx Diphtheria, Pertussis, Tetanus Vaccination: Yes Physical Exam - Vital signs Vitals: Temp Pulse Resp BP Pulse Ox 98.6 F 82 16 111/64 100 10/20/19 18:08 10/20/19 18:08 10/20/19 18:08 10/20/19 18:08 10/20/19 18:08 Course - Vital Signs Vital signs: Temp Pulse Resp BP Pulse Ox 98.6 F 82 16 111/64 100 10/20/19 18:08 10/20/19 18:08 10/20/19 18:08 10/20/19 18:08 10/20/19 18:08
[2019-10-20 19:04] LABS: ABSOLUTE EOSINOPHILS # (AUTO) 0.2 10^3/uL (0.0-0.6); ABSOLUTE MONOCYTES (AUTO) 0.5 10^3/uL (0.1-1.4); ABSOLUTE NEUT (AUTO) 1.3 10^3/uL (1.7-8.2); EOSINOPHILS % (AUTO) 3.8 % (0-6); HEMATOCRIT 39.2 % (36.0-47.0); HEMOGLOBIN 13.5 g/dL (12.0-15.5); LYMPHOCYTES % (AUTO) 59.9 % (13-45); MEAN CORPUSCULAR HEMOGLOBIN 31.1 pg (27.0-33.4); MEAN CORPUSCULAR HGB CONC 34.5 g/dL (32.0-36.0); MEAN CORPUSCULAR VOLUME 90 fl (80-97); MONOCYTES % (AUTO) 9.6 % (3-13); PLATELET COUNT 271 10^3/uL (150-450); RED BLOOD COUNT 4.36 10^6/uL (3.72-5.28); RED CELL DISTRIBUTION WIDTH 13.3 % (11.5-14.0); SEGMENTED NEUTROPHILS % (AUTO) 25.7 % (42-78); TOTAL CELLS COUNTED % (AUTO) 100 %
[2019-10-20 19:10] LABS: INTERNATIONAL RATION (INR) 0.98
[2019-10-20 19:11] LABS: PARTIAL THROMBOPLASTIN TIME 30.3 SEC (23.5-35.8)
[2019-10-20 19:23] LABS: ALBUMIN 4.4 g/dL (3.5-5.0); ALKALINE PHOSPHATASE 89 U/L (38-126); ANION GAP 10 (5-19); ASPARTATE AMINO TRANSFERASE 34 U/L (14-36); BILIRUBIN,DIRECT 0.3 mg/dL (0.0-0.4); BILIRUBIN,TOTAL 0.6 mg/dL (0.2-1.3); BLOOD UREA NITROGEN 13 mg/dL (7-20); CALCIUM 9.7 mg/dL (8.4-10.2); CARBON DIOXIDE 26 mmol/L (22-30); CHLORIDE 102 mmol/L (98-107); GLUCOSE 87 mg/dL (75-110); POTASSIUM 4.5 mmol/L (3.6-5.0); TOTAL PROTEIN 7.7 g/dL (6.3-8.2)
--- NOTE | 2019-10-20 23:08 | RADIOLOGY REPORT (SQ) ---
EXAM DESCRIPTION: CT NECK WITH IV CONTRAST COMPLETED DATE/TME: 10/20/2019 18:17 CLINICAL HISTORY: 44 years, Female, pt feels like she has a mass to R side of neck COMPARISON: None. TECHNIQUE: Images stored on PACS. All CT scanners at this facility use dose modulation, iterative reconstruction, and/or weight based dosing when appropriate to reduce radiation dose to as low as reasonably achievable (ALARA). [facility]: Dose Right [facility]: CareDose [facility]: Dose Right [facility]: Teradose 4D [facility]: [employer] LIMITATIONS: None. FINDINGS: Examination is not adequate for evaluation of intracranial contents. Mild soft tissue fullness to the pharynx at the level of the oropharynx without discrete abnormality. This area is partly secured by artifact from dental prostheses and amalgam. No evidence of abscess. The salivary glands appear unremarkable. No bulky adenopathy. Vascular space appears normal. Thyroid is homogeneous. Lung apices are grossly clear. Upper mediastinum is unremarkable as well. The visualized bones demonstrate age-appropriate osteoarthritis. Reversal of the normal cervical lordosis. No focal alignment abnormality IMPRESSION: Very mild soft tissue fullness to the level the oropharynx without discrete abnormality. No drainable collection. No bulky adenopathy. Despite reported history, a discrete mass is not identified. TECHNICAL DOCUMENTATION: Quality ID # [id number]: Final reports with documentation of one or more dose reduction techniques (e.g., Automated exposure control, adjustment of the mA and/or kV according to patient size, use of iterative reconstruction technique) copyright 2011 [employer]- All Rights Reserved
--- NOTE | 2019-10-21 00:37 | ER Document Report ---
ED General - General Chief Complaint: Difficulty Swallowing Stated Complaint: SORE THROAT RIGHT EAR PAIN Time Seen by Provider: 10/20/19 18:13 TRAVEL OUTSIDE OF THE [place] IN LAST 30 DAYS: No - HPI Notes: Patient is a 44-year-old female who presents to the emergency department for evaluation. She states that after brushing her teeth, gargling with water, she noticed blood. She states she is noticed that repeatedly over the last week. She states she has a fullness in the back of her throat, a pain that radiates into her right ear, and she believes she feels like there is "a tumor" there. She states she is mcc history of smoking and she is concerned. She denies any night sweats, no unintentional weight loss. She is not coughing up blood. She denies any shortness of breath. No fevers or chills. No coughing. - Related Data Allergies/Adverse Reactions: No Known Allergies Allergy (Verified 10/13/19 15:46) Home Medications: Flonase, aspirin Past Medical History - General Information source: Patient - Social History Smoking Status: Current Every Day Smoker Family History: Arthritis, CAD, CVA, DM, Hyperlipidemia, Hypertension Patient has suicidal ideation: No Patient has homicidal ideation: No - Past Medical History Cardiac Medical History: Denies: Hx Coronary Artery Disease, Hx Heart Attack, Hx Hypertension Pulmonary Medical History: Reports: Hx Asthma, Hx Bronchitis, Hx Pneumonia Neurological Medical History: Reports: Hx Migraine Renal/ Medical History: Denies: Hx Peritoneal Dialysis GI Medical History: Reports: Hx Hiatal Hernia, Hx Ulcer - not a bleeding ulcer. Denies: Hx Hepatitis Musculoskeletal Medical History: Reports Hx Arthritis - back, Reports Hx Musculoskeletal Deformity - scoliosis, bunion, hammer toe, Reports Hx Musculoskeletal Trauma Skin Medical History: Reports Hx Cellulitis Traumatic Medical History: Reports: Hx Fractures - toes Infectious Medical History: Denies: Hx Hepatitis Past Surgical History: Reports: Hx Hysterectomy, Hx Inguinal Hernia, Hx Orthopedic Surgery - Left foot surgery x 3. Denies: Hx Mastectomy, Hx Open Heart Surgery, Hx Pacemaker - Immunizations Hx Diphtheria, Pertussis, Tetanus Vaccination: Yes Review of Systems - Review of Systems Constitutional: No symptoms reported EENT: See HPI Cardiovascular: No symptoms reported Respiratory: No symptoms reported Gastrointestinal: No symptoms reported Genitourinary: No symptoms reported Musculoskeletal: No symptoms reported Skin: No symptoms reported Neurological/Psychological: No symptoms reported Physical Exam - Vital signs Vitals: Temp Pulse Resp BP Pulse Ox 98.6 F 82 16 111/64 100 10/20/19 18:08 10/20/19 18:08 10/20/19 18:08 10/20/19 18:08 10/20/19 18:08 - Notes Notes: Vital signs reviewed, please refer to chart. Head is normocephalic, atraumatic. Pupils equal round, reactive to light. TMs are pearly lim with good light reflex. Pharynx is mildly erythematous and appears irritated, but no tonsillar exudates or petechiae noted. Neck is supple without meningismus. No significant adenopathy appreciated in the neck. Heart is regular rate and rhythm. Lungs are clear to auscultation bilaterally. Abdomen is soft, nontender, normoactive bowel sounds throughout. Extremities without cyanosis, clubbing. Posterior calves are nontender. Peripheral pulses are equal. Skin is warm and dry. Patient is awake, alert, neurological exam is nonfocal. Course - Re-evaluation Re-evalutation: 10/21/19 00:31 Patient presents emergency department for evaluation. She is primarily concerned about the possibility of a malignancy as she has been a longtime smoker. I explained to the patient that the best thing she could possibly do is quit smoking. She voiced understanding to this. She was told the results of the CT scan. No discrete mass was seen, but this was of course limited. MRI may be helpful, but I also think referral on to ENT could be reassuring as well. At this point, I do suspect that there is a possibility this is just irritation from the Flonase and dry air. I explained her that this was 1 of many possibilities, and this would need followed up. She voiced understanding. I will send her home with prednisone to help her with the swelling, referral to our ENT, and instructions to return with worsening. - Vital Signs Vital signs: Temp Pulse Resp BP Pulse Ox 98.6 F 82 16 111/64 100 10/20/19 18:08 10/20/19 18:08 10/20/19 18:08 10/20/19 18:08 10/20/19 18:08 - Laboratory Result Diagrams: 10/20/19 18:45 10/20/19 18:45 Laboratory results interpreted by me: 10/20/19 10/20/19 18:45 18:45 Lymph % (Auto) 59.9 H Absolute Neuts (auto) 1.3 L Seg Neutrophils % 25.7 L Est GFR (MDRD) Non-Af 55 L Discharge - Discharge Clinical Impression: Pharyngitis Condition: Stable Disposition: HOME, SELF-CARE Additional Instructions: Your CT of your neck did not show any discrete problems besides mild swelling, but was somewhat limited. You may benefit from MRI or ENT evaluation. Take all of the steroids as directed until gone, starting tomorrow. Please try to quit smoking. Return to the emergency department with worsening or new concerning symptoms of any sort. Forms: Smoking Cessation Education
== END 2019-10-21 00:38 | disposition home or self-care (01) ==
LOC: ER 17:48
DX: J02.9 Acute pharyngitis, unspecified (principal); R13.10 Dysphagia, unspecified; H92.01 Otalgia, right ear; F17.200 Nicotine dependence, unspecified, uncomplicated; J45.909 Unspecified asthma, uncomplicated
CPT/HCPCS: 36415; 70491; 80053; 85025; 85610; 85730; 87070; 87880; 99284

== ENCOUNTER 2019-11-06 18:14 | Emergency (ER) | payer OTHER ==
[2019-11-06 19:18] VITALS: BP 106/68
[2019-11-06] MEDS ORDERED: NORMAL SALINE 1000 ML 1,000 ML IV ONE (19:26)
[2019-11-06] MEDS ORDERED: PROCHLORPERAZINE EDISYLATE INJ 10 MG/2 ML VIAL IV ONE (19:27)
[2019-11-06] MEDS ORDERED: DIPHENHYDRAMINE HCL 50 MG/ML VIAL IV ONE (19:27)
[2019-11-06] MEDS ORDERED: KETOROLAC TROMETHAMINE INJ/PF 30 MG/1 ML SDV IV ONE (19:27)
--- NOTE | 2019-11-06 19:27 | ER Document Report ---
ED Headache - General Chief Complaint: Headache Stated Complaint: VOMITTING/HEADACHE Time Seen by Provider: 11/06/19 19:20 Primary Care Provider: [facility] [Primary Care Provider] - Follow up as needed Mode of Arrival: Ambulatory Information source: Patient Notes: 44-year-old female presented to ED for cough cold congestion headache. Pt states she woke up with a "massive" headache and nausea/vomiting, and a "hacking" cough. Pt alert and oriented. Pt breaths even and unlabored with airway patent and intact. Will continue to monitor. TRAVEL OUTSIDE OF THE [place] IN LAST 30 DAYS: No - HPI Patient complains to provider of: Headache Patient reports: Frequent migraines Onset: This morning Onset was: Other - Cup with a headache Timing: Still present Quality of pain: Achy Severity: Moderate Pain Level: 4 Associated symptoms: Nausea/vomiting Exacerbated by: Light, Noise, Movement Similar symptoms previously: Yes Recently seen / treated by doctor: No - Related Data Allergies/Adverse Reactions: No Known Allergies Allergy (Verified 10/13/19 15:46) Past Medical History - General Information source: Patient - Social History Smoking Status: Current Every Day Smoker Cigarette use (# per day): Yes - 5 cigarettes a day Smoking Education Provided: Yes - 4 minutes Frequency of alcohol use: None Drug Abuse: Marijuana 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 Lives with: Family Family History: Arthritis, CAD, CVA, DM, Hyperlipidemia, Hypertension - Past Medical History Cardiac Medical History: Reports: Hx Hypercholesterolemia Pulmonary Medical History: Reports: Hx Asthma, Hx Bronchitis, Hx Pneumonia EENT Medical History: Reports: None Neurological Medical History: Reports: Hx Migraine Renal/ Medical History: Denies: Hx Peritoneal Dialysis GI Medical History: Reports: Hx Hiatal Hernia, Hx Ulcer - not a bleeding ulcer Musculoskeletal Medical History: Reports Hx Arthritis - back, Reports Hx Musculoskeletal Deformity - scoliosis, bunion, hammer toe, Reports Hx Musculoskeletal Trauma Skin Medical History: Reports Hx Cellulitis, Reports Other - Hydradenitis Psychiatric Medical History: Reports: Hx Anxiety Traumatic Medical History: Reports: Hx Fractures - toes Infectious Medical History: Reports: None Past Surgical History: Reports: Hx Hysterectomy, Hx Inguinal Hernia, Hx Orthopedic Surgery - Left foot surgery x 3 - Immunizations Hx Diphtheria, Pertussis, Tetanus Vaccination: Yes Review of Systems - Review of Systems Constitutional: No symptoms reported EENT: Nose congestion, Nose discharge, Sinus pressure, Sinus discharge Cardiovascular: No symptoms reported Respiratory: No symptoms reported Gastrointestinal: Nausea, Vomiting Genitourinary: No symptoms reported Female Genitourinary: No symptoms reported Musculoskeletal: No symptoms reported Skin: No symptoms reported Hematologic/Lymphatic: No symptoms reported Neurological/Psychological: Headaches -: Yes All other systems reviewed and negative Physical Exam - Vital signs Vitals: Temp Pulse Resp BP Pulse Ox 98.3 F 65 20 106/68 100 11/06/19 19:17 11/06/19 19:17 11/06/19 19:17 11/06/19 19:17 11/06/19 19:17 Interpretation: Normal - General General appearance: Appears well, Alert - HEENT Head: Normocephalic, Atraumatic Eyes: Normal Pupils: PERRL Ears: Normal External canal: Normal Tympanic membrane: Normal Sinus: Normal Nasal: Purulent discharge, Swelling Mouth/Lips: Normal Mucous membranes: Normal Pharynx: Post nasal drainage Neck: Normal - Respiratory Respiratory status: No respiratory distress Chest status: Nontender Breath sounds: Nonproductive cough Chest palpation: Normal - Cardiovascular Rhythm: Regular Heart sounds: Normal auscultation Murmur: No - Abdominal Inspection: Normal Distension: No distension Bowel sounds: Normal Tenderness: Nontender Organomegaly: No organomegaly - Back Back: Normal, Nontender - Extremities General upper extremity: Normal inspection, Nontender, Normal color, Normal ROM, Normal temperature General lower extremity: Normal inspection, Nontender, Normal color, Normal ROM, Normal temperature, Normal weight bearing. No: Mark's sign - Neurological Neuro grossly intact: Yes Cognition: Normal Orientation: AAOx4 Howie Coma Scale Eye Opening: Spontaneous [place] Coma Scale Verbal: Oriented Howie Coma Scale Motor: Obeys Commands [place] Coma Scale Total: 15 Speech: Normal Cranial nerves: Normal Cerebellar coordination: Normal Motor strength normal: LUE, RUE, LLE, RLE Additional motor exam normals: Equal hand molder meat Babinski reflex: Normal (flexor plantar) Sensory: Normal Biceps - Reflex grade: 2 = Normal Triceps - Reflex grade: 2 = Normal Brachioradialis - Reflex grade: 2 = Normal Knee - Reflex grade: 2 = Normal Ankle - Reflex grade: 2 = Normal - Psychological Associated symptoms: Normal affect, Normal mood - Skin Skin Temperature: Warm Skin Moisture: Dry Skin Color: Normal Course - Re-evaluation Re-evalutation: 11/06/19 22:02 After performing a Medical Screening Examination, I estimate there is LOW risk for ACUTE GLAUCOMA, TEMPORAL ARTERITIS, MENINGITIS, INCRANIAL HEMORRHAGE, or ISCHEMIC STROKE thus I consider the discharge disposition reasonable. I have reevaluated this patient multiple times and no significant life threatening changes are noted. The patient and I have discussed the diagnosis and risks, and we agree with discharging home with close follow-up with the understanding that symptoms and presentations can change. We also discussed returning to the [facility] immediately if new or worsening symptoms occur. We have discussed the symptoms which are most concerning (e.g., changing or worsening symptoms, new numbness or weakness, vomiting, fever) that necessitate immediate return. - Vital Signs Vital signs: Temp Pulse Resp BP Pulse Ox 98.3 F 65 20 106/68 100 11/06/19 19:17 11/06/19 19:17 11/06/19 19:17 11/06/19 19:17 11/06/19 19:17 Discharge - Discharge Clinical Impression: Headache Qualifiers: Headache type: unspecified Headache chronicity pattern: unspecified pattern Intractability: not intractable Qualified Code(s): R51 - Headache Condition: Stable Disposition: HOME, SELF-CARE Additional Instructions: HEADACHE: The physician does not feel that the headache you are experiencing has a serious underlying cause. Most headaches are due to emotional stress, with resultant muscle tension (tension headache). Occasionally, headaches are secondary to changes in the blood vessels of the scalp (vascular headache and migraine headache). Sometimes, a headache is the first symptom of another developing illness, such as a viral infection. You have no evidence of stroke, bleeding, meningitis, or other serious cause of your headache. The treatment of headaches varies with the severity and cause of the pain. Not all headaches need pain shots. In fact, there is evidence that using narcotics for headaches may make them worse in the long run. The physician will determine the therapy that's in your best interest. If you develop a fever, if the headache is different from any you've previously experienced, or if the headache progressively worsens, then call your physician at once or go to the emergency room. USE OF DIPHENHYDRAMINE: Diphenhydramine (Benadryl) is an antihistamine and has been recommended to help treat your headache and to prevent side effects of other medications used to treat headaches. The medication can be repeated four times daily. Age Elixir (12.5 mg/tsp) 25 mg pill adult 1-2 tabs Antihistamines may cause drowsiness, especially with the first dose. Do not operate machinery or drive while under the effects of the medication. Do not combine the medication with alcohol, or with any other medication without talking to your doctor. INTRAVENOUS COMPAZINE FOR HEADACHE: You have received therapy for headaches, using intravenous Compazine. This treatment is dramatically successful in relieving the headache in about 50 percent of cases. When it works, it provides a rapid method of eliminating the headache without resorting to narcotics (and the problems associated with them). Most patients still feel fully alert after the Compazine, but others may be slightly drowsy. It's best not to drive or work with machinery for six to eight hours. Do not take alcohol or other medication unless you discuss it with the doctor. If you develop tightness and spasms in your muscles, especially the neck and tongue, you should return. This is a side effect which can be treated. TORADOL INJECTION: You have been given an injection of ketorolac tromethamine (Toradol). This is an excellent, safe drug for pain control. It also has potent antiinflammatory action. You should have significant pain relief within about one hour. Toradol is not addicting and is non-sedating. It does not interfere with driving or work. Call or return if you develop itching, hives, shortness of breath, or rash. Intravenous (IV) Fluids As part of your care today, you received intravenous (IV) fluids. IV fluids are administered to patients who are dehydrated or to those who have certain chemical (electrolyte) abnormalities that need correcting. FOLLOW-UP CARE: If you have been referred to a physician for follow-up care, call the physicians office for an appointment as you were instructed or within the next two days. If you experience worsening or a significant change in your symptoms, notify the physician immediately or return to the Emergency Department at any time for re-evaluation. Prescriptions: Butalb/Acetaminophen/Caffeine [Fioricet (50-325-40 mg) Tablet] 1 tab PO Q6HP PRN #14 tab PRN Reason: Forms: Smoking Cessation Education, Return to Work Referrals: [facility] [Primary Care Provider] - Follow up as needed
== END 2019-11-06 20:54 | disposition home or self-care (01) ==
LOC: ER 18:14
DX: R51 Headache (principal); R11.2 Nausea with vomiting, unspecified; F17.210 Nicotine dependence, cigarettes, uncomplicated; E78.00 Pure hypercholesterolemia, unspecified; Z90.710 Acquired absence of both cervix and uterus
CPT/HCPCS: 99406; 99283; 96361; 96374; 96375; J1200; J1885; J0780; J7030

== ENCOUNTER 2020-03-13 14:42 | Emergency (ER) | payer OTHER ==
[2020-03-13 14:56] VITALS: BP 93/44
--- NOTE | 2020-03-13 15:43 | ER Document Report ---
HPI - HPI Patient complains to provider of: Right sided ear and throat pain Time Seen by Provider: 03/13/20 15:36 Pain Level: 5 Context: 44-year-old female no previous medical problems presents to the emergency room complaining of a sore throat that radiates into her neck and up into her right ear for the past 3 days. Denies any fevers. States it hurts to swallow. Thinks she has an abscess. Is tolerating p.o. food and fluids without di fficulty. No recent antibiotics. No ill contacts. No recent travel. Associated Symptoms: Sore throat Exacerbated by: Other - Swallowing Relieved by: Denies Similar symptoms previously: Yes - September 2019 Recently seen / treated by doctor: No - ROS Systems Reviewed and Negative: Yes All other systems reviewed and negative - CONSTITUTIONAL Constitutional: DENIES: Fever - EENT EENT: REPORTS: Sore Throat, Ear Pain - NEURO Neurology: DENIES: Headache, Weakness - RESPIRATORY Respiratory: DENIES: Trouble Breathing - REPRODUCTIVE Reproductive: DENIES: : - DERM Skin Color: Normal Skin Problems: None Past Medical History - General Information source: Patient - Social History Smoking Status: Current Every Day Smoker Chew tobacco use (# tins/day): No Frequency of alcohol use: None Drug Abuse: None Family History: Arthritis, CAD, CVA, DM, Hyperlipidemia, Hypertension Patient has homicidal ideation: No - Past Medical History Cardiac Medical History: Reports: Hx Hypercholesterolemia Denies: Hx Heart Attack, Hx Hypertension Pulmonary Medical History: Reports: Hx Asthma, Hx Bronchitis, Hx Pneumonia Neurological Medical History: Reports: Hx Migraine Renal/ Medical History: Denies: Hx Peritoneal Dialysis GI Medical History: Reports: Hx Hiatal Hernia, Hx Ulcer - not a bleeding ulcer Musculoskeletal Medical History: Reports Hx Arthritis - back, Reports Hx Musculoskeletal Deformity - scoliosis, bunion, hammer toe, Reports Hx Musculoskeletal Trauma Skin Medical History: Reports Hx Cellulitis Psychiatric Medical History: Reports: Hx Anxiety Traumatic Medical History: Reports: Hx Fractures - toes Past Surgical History: Reports: Hx Hysterectomy, Hx Inguinal Hernia, Hx Orthopedic Surgery - Left foot surgery x 3. Denies: Hx Mastectomy, Hx Open Heart Surgery - Immunizations Hx Diphtheria, Pertussis, Tetanus Vaccination: Yes Vertical Provider Document - CONSTITUTIONAL Agree With Documented VS: Yes Exam Limitations: No Limitations General Appearance: Mild Distress - INFECTION CONTROL TRAVEL OUTSIDE OF THE [place] IN LAST 30 DAYS: No - HEENT HEENT: Atraumatic, Normocephalic. negative: Pharyngeal Exudate, Pharyngeal Tenderness, Pharyngeal Erythema Notes: Tympanic membrane erythematous and bulging. Right outer ear canal without erythema or swelling. Left tympanic membrane intact without erythema or swelling. Left outer ear canal without erythema or swelling. - NECK Neck: Supple, Lymphadenopathy-Right. negative: Thyroid Normal - RESPIRATORY Respiratory: Breath Sounds Normal, No Respiratory Distress, Chest Non-Tender. negative: Rales, Rhonchi - CARDIOVASCULAR Cardiovascular: Regular Rate, Regular Rhythm, No Murmur - MUSCULOSKELETAL/EXTREMETIES Musculoskeletal/Extremeties: FROM - NEURO Level of Consciousness: Awake, Alert, Appropriate Motor/Sensory: No Motor Deficit, No Sensory Deficit - DERM Integumentary: Warm, Dry, No Rash Course - Re-evaluation Re-evalutation: 03/13/20 15:42 Discussed diagnosis with patient. Counseled to take antibiotics as prescribed. Tylenol and/or Motrin as needed for pain. Outpatient follow-up with legal researcher if not improving in 2 to 3 days. Patient was provided with on-call physician. Patient was given strict return to the emergency room guidelines. Return for any new or worsening symptoms. All questions were answered. Patient verbalized understanding and agrees with plan of care. - Vital Signs Vital signs: Temp Pulse Resp BP Pulse Ox 98.6 F 81 16 93/44 L 98 03/13/20 15:36 03/13/20 14:55 03/13/20 14:55 03/13/20 14:55 03/13/20 14:55 Discharge - Discharge Clinical Impression: Lymphadenopathy Right otitis media Qualifiers: Otitis media type: unspecified Qualified Code(s): H66.91 - Otitis media, unspecified, right ear Acute pharyngitis Qualifiers: Pharyngitis/tonsillitis etiology: unspecified etiology Qualified Code(s): J02.9 - Acute pharyngitis, unspecified Disposition: HOME, SELF-CARE Instructions: Otitis Media ([facility]), Sore Throat ([facility]) Additional Instructions: Take antibiotics as prescribed. Can use warm compresses to right side of face and neck 20 minutes 3 times a day. Take Tylenol and or Motrin as needed for pain. Follow-up with an legal researcher if not improving in 2 to 3 days. Return for any new or worsening symptoms. Prescriptions: Amoxicillin 1 tab PO TID #30 tab Referrals: [facility] [NO LOCAL MD] - Follow up as needed GERALD DUNN DO [ASSOCIATE] - Follow up as needed
== END 2020-03-13 15:49 | disposition home or self-care (01) ==
LOC: ER 14:42
DX: J02.9 Acute pharyngitis, unspecified (principal); H66.91 Otitis media, unspecified, right ear; H92.01 Otalgia, right ear; R59.0 Localized enlarged lymph nodes; M54.2 Cervicalgia; F17.200 Nicotine dependence, unspecified, uncomplicated; J45.909 Unspecified asthma, uncomplicated
CPT/HCPCS: 99283

== ENCOUNTER 2020-03-30 22:26 | Emergency (ER) | payer OTHER ==
[2020-03-30] MEDS ORDERED: ONDANSETRON HCL INJ/PF 4 MG/2 ML SDV IV ONE (23:38)
[2020-03-30] MEDS ORDERED: HYDROMORPHONE HCL INJ/PF 2 MG/ML AMPULE IV ONE (23:38)
--- NOTE | 2020-03-30 23:39 | ER Document Report ---
ED Medical Screen (RME) - General Chief Complaint: Nausea/Vomiting/Diarrhea Stated Complaint: NAUSEA,DIARRHEA,FLANK PAIN Notes: Patient is a 44-year-old female with no significant past medical history presents to the emergency department the chief complaint of flank pain began 3 days ago. States is progressively worsening. Associated with diarrhea that is yellow in color as well as nausea. Denies any urinary complaints, vaginal bleeding or discharge. Denies any recent travel or known sick contacts. No fever, chest pain, shortness of breath or cough. I have treated and performed a rapid initial assessment of this patient. A comprehensive ED assessment and evaluation of the patient, analysis of test results and completion of medical decision making process will be conducted by additional ED providers. PHYSICAL EXAMINATION: GENERAL: Well-appearing, well-nourished and in no acute distress. A&Ox4. Answers questions appropriately. TRAVEL OUTSIDE OF THE [place] IN LAST 30 DAYS: No - Related Data Allergies/Adverse Reactions: No Known Allergies Allergy (Verified 03/13/20 15:36) Past Medical History - Social History Family history: Reviewed & Not Pertinent - Past Medical History Cardiac Medical History: Reports: Hx Hypercholesterolemia Denies: Hx Heart Attack, Hx Hypertension Pulmonary Medical History: Reports: Hx Asthma, Hx Bronchitis, Hx Pneumonia Neurological Medical History: Reports: Hx Migraine Renal/ Medical History: Denies: Hx Peritoneal Dialysis GI Medical History: Reports: Hx Hiatal Hernia, Hx Ulcer - not a bleeding ulcer Musculoskeltal Medical History: Reports Hx Arthritis - back, Reports Hx Musculoskeletal Deformity - scoliosis, bunion, hammer toe, Reports Hx Musculoskeletal Trauma Skin Medical History: Reports Hx Cellulitis Psychiatric Medical History: Reports: Hx Anxiety Traumatic Medical History: Reports: Hx Fractures - toes Past Surgical History: Reports: Hx Hysterectomy, Hx Inguinal Hernia, Hx Orthopedic Surgery - Left foot surgery x 3. Denies: Hx Mastectomy, Hx Open Heart Surgery - Immunizations Hx Diphtheria, Pertussis, Tetanus Vaccination: Yes Physical Exam - Vital signs Vitals: Temp Pulse Resp BP Pulse Ox 97.8 F 91 19 118/64 100 03/30/20 22:31 03/30/20 22:31 03/30/20 22:31 03/30/20 22:31 03/30/20 22:31 Course - Vital Signs Vital signs: Temp Pulse Resp BP Pulse Ox 97.8 F 91 19 118/64 100 03/30/20 22:31 03/30/20 22:31 03/30/20 22:31 03/30/20 22:31 03/30/20 22:31
[2020-03-31 00:06] LABS: APPEARANCE,URINE CLEAR; BILIRUBIN,URINE NEGATIVE (NEGATIVE); COLOR,URINE STRAW; GLUCOSE, URINE NEGATIVE (NEGATIVE); KETONES,URINE TRACE mg/dL (NEGATIVE); PROTEIN,URINE NEGATIVE (NEGATIVE); URINE SPECIFIC GRAVITY 1.004; UROBILINOGEN,URINE NEGATIVE mg/dL (<2.0)
[2020-03-31 00:11] LABS: ABSOLUTE BASOPHILS # (AUTO) 0.1 10^3/uL (0.0-0.2); ABSOLUTE EOSINOPHILS # (AUTO) 0.3 10^3/uL (0.0-0.6); ABSOLUTE LYMPHOCYTES (AUTO) 3.5 10^3/uL (0.5-4.7); ABSOLUTE MONOCYTES (AUTO) 0.6 10^3/uL (0.1-1.4); ABSOLUTE NEUT (AUTO) 1.7 10^3/uL (1.7-8.2); BASOPHILS % (AUTO) 1.2 % (0-2); EOSINOPHILS % (AUTO) 4.8 % (0-6); HEMATOCRIT 40.7 % (36.0-47.0); HEMOGLOBIN 14.1 g/dL (12.0-15.5); LYMPHOCYTES % (AUTO) 57.3 % (13-45); MEAN CORPUSCULAR HEMOGLOBIN 31.8 pg (27.0-33.4); MEAN CORPUSCULAR HGB CONC 34.7 g/dL (32.0-36.0); MEAN CORPUSCULAR VOLUME 92 fl (80-97); MONOCYTES % (AUTO) 9.4 % (3-13); PLATELET COUNT 280 10^3/uL (150-450); RED BLOOD COUNT 4.44 10^6/uL (3.72-5.28); RED CELL DISTRIBUTION WIDTH 13.5 % (11.5-14.0); SEGMENTED NEUTROPHILS % (AUTO) 27.3 % (42-78); TOTAL CELLS COUNTED % (AUTO) 100 %; WHITE BLOOD COUNT 6.1 10^3/uL (4.0-10.5)
[2020-03-31 00:17] LABS: ALBUMIN 4.4 g/dL (3.5-5.0); ALKALINE PHOSPHATASE 99 U/L (38-126); ANION GAP 6 (5-19); ASPARTATE AMINO TRANSFERASE 38 U/L (14-36); BLOOD UREA NITROGEN 11 mg/dL (7-20); CALCIUM 9.9 mg/dL (8.4-10.2); CARBON DIOXIDE 25 mmol/L (22-30); CHLORIDE 105 mmol/L (98-107); GLUCOSE 94 mg/dL (75-110); POTASSIUM 4.3 mmol/L (3.6-5.0); TOTAL PROTEIN 7.7 g/dL (6.3-8.2)
--- NOTE | 2020-03-31 00:53 | ER Document Report ---
ED General - General Chief Complaint: Nausea/Vomiting/Diarrhea Stated Complaint: NAUSEA,DIARRHEA,FLANK PAIN Time Seen by Provider: 03/31/20 00:51 Mode of Arrival: Ambulatory Information source: Patient Notes: Patient is a 44-year-old female presenting to the emergency department with a 3- day history of nausea vomiting diarrhea and right-sided flank pain. Patient states it started kind of abruptly. She is recently started on Nexium for acid reflux however otherwise takes no other medications other than albuterol inhaler as needed for asthma exacerbation. Patient denies travel history trauma history no overexertion. TRAVEL OUTSIDE OF THE [place] IN LAST 30 DAYS: No - HPI Onset: Other - 3 days Onset/Duration: Gradual, Persistent Severity: Mild Pain Level: 1 Associated symptoms: Diarrhea, Nausea, Vomiting Exacerbated by: Food Relieved by: Denies Similar symptoms previously: No Recently seen / treated by doctor: No - Related Data Allergies/Adverse Reactions: No Known Allergies Allergy (Verified 03/13/20 15:36) Home Medications: albuterol. cetirizine. Nexium. Vitamins Past Medical History - General Information source: Patient - Social History Smoking Status: Current Every Day Smoker Cigarette use (# per day): Yes Chew tobacco use (# tins/day): No Smoking Education Provided: Yes Frequency of alcohol use: Occasional Drug Abuse: None Lives with: Family Family History: Arthritis, CAD, CVA, DM, Hyperlipidemia, Hypertension Patient has suicidal ideation: No Patient has homicidal ideation: No - Past Medical History Cardiac Medical History: Reports: Hx Hypercholesterolemia Denies: Hx Heart Attack, Hx Hypertension Pulmonary Medical History: Reports: Hx Asthma, Hx Bronchitis, Hx Pneumonia Neurological Medical History: Reports: Hx Migraine Renal/ Medical History: Denies: Hx Peritoneal Dialysis GI Medical History: Reports: Hx Hiatal Hernia, Hx Ulcer - not a bleeding ulcer Musculoskeletal Medical History: Reports Hx Arthritis - back, Reports Hx Musculoskeletal Deformity - scoliosis, bunion, hammer toe, Reports Hx Musculoskeletal Trauma Skin Medical History: Reports Hx Cellulitis Psychiatric Medical History: Reports: Hx Anxiety Traumatic Medical History: Reports: Hx Fractures - toes Past Surgical History: Reports: Hx Hysterectomy, Hx Inguinal Hernia, Hx Orthopedic Surgery - Left foot surgery x 3. Denies: Hx Mastectomy, Hx Open Heart Surgery - Immunizations Hx Diphtheria, Pertussis, Tetanus Vaccination: Yes Review of Systems - Review of Systems Notes: REVIEW OF SYSTEMS: CONSTITUTIONAL : Denies fever, chills, or sweats. Denies recent illness. EENT: Denies eye, ear, throat, or mouth pain or symptoms. Denies nasal or si nus congestion. CARDIOVASCULAR: Denies chest pain. RESPIRATORY: Denies cough, cold, or chest congestion. Denies shortness of breath, difficulty breathing, or wheezing. GASTROINTESTINAL: Per HPI. GENITOURINARY: Per HPI MUSCULOSKELETAL: Denies neck or back pain or joint pain or swelling. SKIN: Denies rash or skin lesions. HEMATOLOGIC : Denies easy bruising or bleeding. NEUROLOGICAL: Denies altered mental status or loss of consciousness. Denies headache. Denies weakness or paralysis or loss of use of either side. Denies problems with gait or speech. Denies sensory or motor loss. PSYCHIATRIC: Denies suicidal or homicidal ideations 10 Systems are negative unless otherwise specified above Physical Exam - Vital signs Vitals: Temp Pulse Resp BP Pulse Ox 97.8 F 91 19 118/64 100 03/30/20 22:31 03/30/20 22:31 03/30/20 22:31 03/30/20 22:31 03/30/20 22:31 - Notes Notes: PHYSICAL EXAMINATION: GENERAL: Well-appearing, well-nourished and in no acute distress. HEAD: Atraumatic, normocephalic. EYES: Pupils equal round and reactive to light, extraocular movements intact, sclera anicteric, conjunctiva are normal. ENT: nares patent, oropharynx clear without exudates. Moist mucous membranes. NECK: Normal range of motion, supple without lymphadenopathy, no appreciable JVD LUNGS: Lungs clear to auscultation bilaterally and equal. No wheezes rales or rhonchi. HEART: Regular rate and rhythm without murmurs ABDOMEN: Soft, diffusely moderately tender to the right flank and right abdomen, normal bowel sounds. No guarding, no rebound. No masses appreciated. EXTREMITIES: Active full range of motion, no pitting or edema. No cyanosis. 2+ pulses x4 NEUROLOGICAL: No focal neurological deficits. Moves all extremities spo ntaneously and on command. SKIN: Warm, Dry, and intact. Normal turgor, no rashes or lesions noted. Course - Re-evaluation Re-evalutation: 03/31/20 03:33 I discussed the laboratory and radiologic results with the patient I believe she may have passed a kidney stone in the recent time. Patient will be discharged home in stable condition follow-up with family physician as needed patient will be given medication for nausea and pain. Patient is stable at time of discharge. - Vital Signs Vital signs: Temp Pulse Resp BP Pulse Ox 98.4 F 80 16 134/76 H 98 03/31/20 02:47 03/31/20 02:47 03/31/20 02:47 03/31/20 02:47 03/31/20 02:47 - Laboratory Result Diagrams: 03/30/20 23:46 03/30/20 23:46 Laboratory results interpreted by me: 03/30/20 03/30/20 03/30/20 23:30 23:46 23:46 Lymph % (Auto) 57.3 H Seg Neutrophils % 27.3 L Sodium 136.4 L AST 38 H Urine Ketones TRACE H Urine Blood MODERATE H - Diagnostic Test Radiology reviewed: Reports reviewed Discharge - Discharge Clinical Impression: Nausea vomiting and diarrhea, Flank pain Hematuria Qualifiers: Hematuria type: unspecified type Qualified Code(s): R31.9 - Hematuria, unspecified Condition: Stable Disposition: HOME, SELF-CARE Instructions: Abdominal Pain ([facility]), Antinausea Medication ([facility]) Prescriptions: Ondansetron [Zofran Odt 4 mg Tablet] 1 - 2 tab PO Q4H PRN #15 tab.rapdis PRN Reason: For Nausea/Vomiting
[2020-03-31] MEDS ORDERED: ONDANSETRON HCL INJ/PF 4 MG/2 ML SDV IV ONE (01:03)
--- NOTE | 2020-03-31 01:52 | RADIOLOGY REPORT (SQ) ---
EXAM DESCRIPTION: CT ABDOMEN PELVIS WITHOUT IV CONTRAST COMPLETED DATE/TME: 03/31/2020 00:50 CLINICAL HISTORY: r flank pain, N/V/D x3 days COMPARISON: 03/19/2019 TECHNIQUE: CT of the abdomen and pelvis without IV contrast. Evaluation of the solid organs and vasculature is suboptimal due to lack of IV contrast. FINDINGS: Lung Bases: The visualized lung bases are clear. Bones: No destructive bone lesions identified. Abdomen: Liver: The liver has normal size and density. Gallbladder: No calcified gallstones. Spleen, Pancreas, and Adrenal Glands: The spleen, pancreas, and adrenal glands are unremarkable. Kidneys: The kidneys have normal size without evidence of hydronephrosis. No obstructing ureteral calculi. Vasculature: Aortoiliac atherosclerosis. IVC is unremarkable. Stomach: The stomach and duodenum have normal course. Other: No free intraperitoneal air. No free fluid or lymphadenopathy. Pelvis: Bladder: Urinary bladder is unremarkable. Bowel: No dilated loops of large or small bowel. Appendix: Normal appendix. Pelvis: Prior hysterectomy. IMPRESSION: 1. No acute inflammatory or obstructive process identified. This exam was performed according to our departmental dose-optimization program, which includes automated exposure control, adjustment of the mA and/or kV according to patient size and/or use of iterative reconstruction technique.
[2020-03-31] MEDS ORDERED: OXYCODONE-ACETAMINOPHEN 5-325 MG TABLET PO ONE (02:34)
[2020-03-31] MEDS ORDERED: HYDROCODONE/ACETAMINOPHEN 5-325 MG (6 TAB/ER DISP) PO PRN (02:39)
[2020-03-31 02:52] VITALS: BP 134/76
== END 2020-03-31 02:47 | disposition home or self-care (01) ==
LOC: ER 22:26
DX: R11.2 Nausea with vomiting, unspecified (principal); R19.7 Diarrhea, unspecified; R31.9 Hematuria, unspecified; R10.9 Unspecified abdominal pain; E78.00 Pure hypercholesterolemia, unspecified; Z90.710 Acquired absence of both cervix and uterus
CPT/HCPCS: 96376; 99284; 96374; 96375; 36415; 83690; 85025; 80053; 81001; 74176; J1170; J2405 ×2

== ENCOUNTER 2020-05-19 15:34 | Emergency (ER) | payer OTHER ==
--- NOTE | 2020-05-19 15:50 | ER Document Report ---
HPI - HPI Patient complains to provider of: Puncture wound to foot Time Seen by Provider: 05/19/20 15:39 Onset: Other - 10 Days ago Onset/Duration: Persistent Quality of pain: Achy Context: Patient states she stepped on something 10 days ago and since then has had the persistent feeling as though something is in her foot. Patient states tetanus immunization is currently up-to-date. Associated Symptoms: Other - puncture wound to foot Exacerbated by: Standing, Walking Relieved by: Denies Similar symptoms previously: No Recently seen / treated by doctor: No - ROS ROS below otherwise negative: Yes Systems Reviewed and Negative: Yes All other systems reviewed and negative - CONSTITUTIONAL Constitutional: DENIES: Fever, Chills - REPRODUCTIVE Reproductive: DENIES: : - MUSCULOSKELETAL Musculoskeletal: REPORTS: Extremity pain - DERM Skin Color: Normal Skin Problems: Puncture Wound Past Medical History - General Information source: Patient - Social History Smoking Status: Current Every Day Smoker Frequency of alcohol use: None Drug Abuse: Marijuana - cbd Family History: Arthritis, CAD, CVA, DM, Hyperlipidemia, Hypertension - Past Medical History Cardiac Medical History: Reports: Hx Hypercholesterolemia Denies: Hx Heart Attack, Hx Hypertension Pulmonary Medical History: Reports: Hx Asthma, Hx Bronchitis, Hx Pneumonia Neurological Medical History: Reports: Hx Migraine Renal/ Medical History: Denies: Hx Peritoneal Dialysis GI Medical History: Reports: Hx Hiatal Hernia, Hx Ulcer - not a bleeding ulcer Musculoskeletal Medical History: Reports Hx Arthritis - back, Reports Hx Musculoskeletal Deformity - scoliosis, bunion, hammer toe, Reports Hx Musculoskeletal Trauma Skin Medical History: Reports Hx Cellulitis Psychiatric Medical History: Reports: Hx Anxiety Traumatic Medical History: Reports: Hx Fractures - toes Past Surgical History: Reports: Hx Hysterectomy, Hx Inguinal Hernia, Hx Orthopedic Surgery - Left foot surgery x 3 - Immunizations Hx Diphtheria, Pertussis, Tetanus Vaccination: Yes Vertical Provider Document - CONSTITUTIONAL Agree With Documented VS: Yes Exam Limitations: No Limitations General Appearance: WD/WN, No Apparent Distress - INFECTION CONTROL TRAVEL OUTSIDE OF THE [place] IN LAST 30 DAYS: No - HEENT HEENT: Atraumatic, Normocephalic - NECK Neck: Normal Inspection - RESPIRATORY Respiratory: No Respiratory Distress - CARDIOVASCULAR Pulses: Normal: Dorsalis pedis - MUSCULOSKELETAL/EXTREMETIES Musculoskeletal/Extremeties: MAEW - NEURO Level of Consciousness: Awake, Alert, Appropriate Motor/Sensory: No Motor Deficit - DERM Integumentary: Warm, Dry Notes: Patient with thickened, roughened area to plantar surface under the first metatarsal, no surrounding erythema Course - Re-evaluation Re-evalutation: 05/19/20 16:58 Small white foreign body was removed from the foot, will place patient on course of antibiotics. Patient does have multiple calluses to the foot as well. Patient encouraged to soak foot at least twice a day to soften areas. Patient also encouraged to wear shoes that do not rub on these areas. Patient also encouraged to use cushions over these callused areas to help with discomfort. - Diagnostic Test Radiology reviewed: Image reviewed, Reports reviewed Procedures - Incision and Drainage Left Foot Type: Simple Anesthetic type: 1% Lidocaine Blade size: 11 I&D procedure: Betadine prep applied Incision Method: Incision made by scalpel Amount/type of drainage: Small white foreign body removed from foot Discharge - Discharge Clinical Impression: Foreign body removed from foot Puncture wound of foot, left Qualifiers: Encounter type: initial encounter Qualified Code(s): S91.332A - Puncture wound without foreign body, left foot, initial encounter Condition: Stable Disposition: HOME, SELF-CARE Instructions: Removal of Subcutaneous Foreign Object ([facility]), Cephalexin ([facility]), Epsom Salt Soaks ([facility]) Additional Instructions: Return immediately for any new or worsening symptoms Followup with your primary care provider, call tomorrow to make a followup appointment Follow-up with your data integrity specialist for recheck Wearing shoes that do not rub on your callused areas Use cushioned foam pads to help with callused areas Prescriptions: Cephalexin Monohydrate [Keflex 500 mg Capsule] 500 mg PO Q6H 5 Days #20 capsule Referrals: [facility] DPM [ACTIVE STAFF] - Follow up as needed
--- NOTE | 2020-05-19 16:24 | RADIOLOGY REPORT (SQ) ---
EXAM DESCRIPTION: FOOT LEFT COMPLETE IMAGES COMPLETED DATE/TIME: 05/19/2020 4:12 pm REASON FOR STUDY: PW, ? FB COMPARISON: 12/26/2015 NUMBER OF VIEWS: Three views. TECHNIQUE: AP, lateral and oblique radiographic images acquired of the left foot. LIMITATIONS: None. FINDINGS: MINERALIZATION: Normal. BONES: No acute fracture or dislocation. No worrisome bone lesions. JOINTS: Old bunionectomy and 1st metatarsophalangeal joint replacement. SOFT TISSUES: No foreign body. OTHER: No other significant finding. IMPRESSION: No acute fracture or foreign body. TECHNICAL DOCUMENTATION: JOB ID: [id number] 2010 [employer]- All Rights Reserved Reading location - IP/workstation name: [email or web address]
[2020-05-19 17:12] VITALS: BP 118/74
== END 2020-05-19 17:12 | disposition home or self-care (01) ==
LOC: ER 15:34
PROC: 0JCR0ZZ Extirpation of Matter from Left Foot Subcutaneous Tissue and Fascia, Open Approach (ICD-10-PCS; principal; 2020-05-19)
DX: S91.332A Puncture wound without foreign body, left foot, initial encounter (principal); W45.8XXA Other foreign body or object entering through skin, initial encounter; W22.8XXA Striking against or struck by other objects, initial encounter; F17.200 Nicotine dependence, unspecified, uncomplicated; J45.909 Unspecified asthma, uncomplicated
CPT/HCPCS: 99283

== ENCOUNTER 2020-07-18 10:07 | Emergency (ER) | payer OTHER ==
[2020-07-18 10:24] VITALS: BP 100/61
--- NOTE | 2020-07-18 10:36 | ER Document Report ---
HPI - HPI Patient complains to provider of: Right upper back pain Time Seen by Provider: 07/18/20 10:28 Onset: Other - 1 month Onset/Duration: Waxing and waning Quality of pain: Achy Pain Level: 2 Context: Patient presents complaining of right upper back pain that radiates to right side of neck off and on for the past month. Patient states sometimes the pain is very sharp in nature although is not severe today. Patient states she does not need any pain medicine today. Patient states sometimes it caused her to develop a right-sided headache although the headache is not present right now. Patient denies any trauma. Patient denies any fever. Patient denies any history of IV drug abuse. Associated Symptoms: Other - Right upper back tenderness Exacerbated by: Movement Relieved by: Denies Similar symptoms previously: No Recently seen / treated by doctor: No - ROS ROS below otherwise negative: Yes Systems Reviewed and Negative: Yes All other systems reviewed and negative - CONSTITUTIONAL Constitutional: DENIES: Fever, Chills - NEURO Neurology: DENIES: Headache, Weakness - GASTROINTESTINAL Gastrointestinal: DENIES: Nausea - REPRODUCTIVE Reproductive: DENIES: : - MUSCULOSKELETAL Musculoskeletal: REPORTS: Back Pain - Right-sided upper back, Neck Pain - Right side of neck - DERM Skin Color: Normal Skin Problems: None Past Medical History - General Information source: Patient - Social History Smoking Status: Current Every Day Smoker Frequency of alcohol use: None Drug Abuse: None Occupation: None Family History: Arthritis, CAD, CVA, DM, Hyperlipidemia, Hypertension - Past Medical History Cardiac Medical History: Reports: Hx Hypercholesterolemia Denies: Hx Heart Attack, Hx Hypertension Pulmonary Medical History: Reports: Hx Asthma, Hx Bronchitis, Hx COPD, Hx Pneumonia Neurological Medical History: Reports: Hx Migraine Renal/ Medical History: Denies: Hx Peritoneal Dialysis GI Medical History: Reports: Hx Hiatal Hernia, Hx Ulcer - not a bleeding ulcer Musculoskeletal Medical History: Reports Hx Arthritis - back, Reports Hx Musculoskeletal Deformity - scoliosis, bunion, hammer toe, Reports Hx Musculoskeletal Trauma Skin Medical History: Reports Hx Cellulitis Psychiatric Medical History: Reports: Hx Anxiety Traumatic Medical History: Reports: Hx Fractures - toes Past Surgical History: Reports: Hx Abdominal Surgery - inguinal hernia, Hx Hysterectomy, Hx Inguinal Hernia, Hx Orthopedic Surgery - Left foot surgery x 3. Denies: Hx Mastectomy, Hx Open Heart Surgery - Immunizations Hx Diphtheria, Pertussis, Tetanus Vaccination: Yes Vertical Provider Document - CONSTITUTIONAL Agree With Documented VS: Yes Exam Limitations: No Limitations General Appearance: WD/WN, No Apparent Distress - INFECTION CONTROL TRAVEL OUTSIDE OF THE [place] IN LAST 30 DAYS: No - HEENT HEENT: Atraumatic, Normocephalic - NECK Neck: Supple. negative: Lymphadenopathy-Left, Lymphadenopathy-Right Notes: No cervical midline tenderness step-off or deformity, no meningismus - RESPIRATORY Respiratory: Breath Sounds Normal, No Respiratory Distress - CARDIOVASCULAR Cardiovascular: Regular Rate, Regular Rhythm Pulses: Normal: Radial - BACK Back: Abnormal Inspection - Right trapezius muscle tenderness with spasm - MUSCULOSKELETAL/EXTREMETIES Musculoskeletal/Extremeties: [place], FROM - NEURO Level of Consciousness: Awake, Alert, Appropriate Motor/Sensory: No Motor Deficit - DERM Integumentary: Warm, Dry, No Rash Course - Vital Signs Vital signs: Temp Pulse Resp BP Pulse Ox 98.5 F 64 18 100/61 98 07/18/20 10:22 07/18/20 10:22 07/18/20 10:22 07/18/20 10:22 07/18/20 10:22 Discharge - Discharge Clinical Impression: Trapezius muscle spasm Condition: Stable Disposition: HOME, SELF-CARE Instructions: Muscle Relaxers ([facility]), Muscle Strain ([facility]), Tension Headache ([facility]) Additional Instructions: Return immediately for any new or worsening symptoms Followup with your primary care provider, call tomorrow to make a followup appointment Prescriptions: Cyclobenzaprine HCl [Flexeril 10 Mg Tablet] 10 mg PO TID #15 tablet Lidocaine [Lidoderm 5% (700 mg) Transdermal Patch] 1 patch TP DAILY PRN #10 adh..patch PRN Reason: Naproxen [Naprosyn 250 Nmg Tablet] 1 tab PO BID #14 tablet Referrals: [facility] [Provider Group] - Follow up as needed
== END 2020-07-18 10:40 | disposition home or self-care (01) ==
LOC: ER 10:07
DX: M62.830 Muscle spasm of back (principal); M54.6 Pain in thoracic spine; M54.2 Cervicalgia; R51.9 Headache, unspecified; M54.9 Dorsalgia, unspecified; F17.200 Nicotine dependence, unspecified, uncomplicated; J44.9 Chronic obstructive pulmonary disease, unspecified
CPT/HCPCS: 99283

== ENCOUNTER → 2020-08-09 | Outpatient (CLI) | payer OTHER ==
[2020-08-09 10:55] LABS: HEMOGLOBIN 13.8 g/dL (12.0-15.5); MEAN CORPUSCULAR HEMOGLOBIN 31.4 pg (27.0-33.4); MEAN CORPUSCULAR HGB CONC 34.5 g/dL (32.0-36.0); MEAN CORPUSCULAR VOLUME 91 fl (80-97); PLATELET COUNT 230 10^3/uL (150-450); RED BLOOD COUNT 4.39 10^6/uL (3.72-5.28); RED CELL DISTRIBUTION WIDTH 13.5 % (11.5-14.0); WHITE BLOOD COUNT 3.8 10^3/uL (4.0-10.5)
[2020-08-09 11:10] LABS: ALBUMIN 3.5 g/dL (3.5-5.0); ALKALINE PHOSPHATASE 75 U/L (38-126); ASPARTATE AMINO TRANSFERASE 23 U/L (14-36); BILIRUBIN,TOTAL 0.8 mg/dL (0.2-1.3); BLOOD UREA NITROGEN 10 mg/dL (7-20); CALCIUM 9.1 mg/dL (8.4-10.2); CARBON DIOXIDE 25 mmol/L (22-30); CHLORIDE 107 mmol/L (98-107); GLUCOSE 85 mg/dL (75-110); POTASSIUM 4.1 mmol/L (3.6-5.0); TOTAL PROTEIN 6.2 g/dL (6.3-8.2); TRIGLYCERIDES 141 mg/dL (<150)
[2020-08-09 11:21] LABS: DIRECT LDL 135 mg/dL (<100)
[2020-08-09 11:24] LABS: ABSOLUTE LYMPHOCYTES# (MANUAL) 2.5 10^3/uL (0.5-4.7); ABSOLUTE MONOCYTES # (MANUAL) 0.3 10^3/uL (0.1-1.4); BASOPHILS % (MANUAL) 0 % (0-2); EOSINOPHILS % (MANUAL) 6 % (0-6); LYMPHOCYTES % (MANUAL) 66 % (13-45); MONOCYTES % (MANUAL) 9 % (3-13); SEGMENTED NEUTROPHILS % (MAN) 18 % (42-78); TOTAL CELLS COUNTED 100
[2020-08-09 11:25] LABS: PLATELET COMMENT ADEQUATE; RBC MORPHOLOGY COMMENT NORMO-CYTIC/CHROMIC
[2020-08-09 11:27] LABS: ANION GAP 4 (5-19)
[2020-08-09 12:50] LABS: FREE T4 (FREE THYROXINE) 1.01 ng/dL (0.78-2.19)
[2020-08-09 13:04] LABS: THYROID STIMULATING HORMONE 1.37 uIU/mL (0.47-4.68)
--- NOTE | 2020-08-09 15:13 | EKG REPORT ---
SEVERITY:- NORMAL ECG - SINUS RHYTHM : Confirmed by: Katie Timmons MD 09-Aug-2020 15:12:11
--- NOTE | 2020-08-09 17:05 | RADIOLOGY REPORT (SQ) ---
EXAM DESCRIPTION: FOOT LEFT 2 VIEWS IMAGES COMPLETED DATE/TIME: 08/09/2020 10:52 am REASON FOR STUDY: CHEST PAIN ON BREATHING; PAIN IN LEFT FOOT; UPPER BACK PAIN Z00.00 ENCNTR FOR [facility] ADULT MEDICAL EXAM W/O ABNORMAL FI R07.89 OTHER CHEST PAIN R07.1 CHEST PAIN ON BREATHING COMPARISON: 2015 NUMBER OF VIEWS: Two views. TECHNIQUE: AP and lateral without weight bearing radiographic images acquired of the left foot. LIMITATIONS: None. FINDINGS: MINERALIZATION: Normal. BONES: No acute fracture or dislocation. No worrisome bone lesions. No significant osteophytes. JOINTS: Arthroplasty in the 1st metatarsal-phalangeal joint SOFT TISSUES: No soft tissue swelling. No foreign body. OTHER: There are 2 screws in the distal 1st metatarsal. An implant is present in the base of the 1st proximal phalanx. IMPRESSION: Surgical changes. No explanation for pain. TECHNICAL DOCUMENTATION: JOB ID: [id number] 2010 [employer]- All Rights Reserved Reading location - IP/workstation name: [email or web address]
--- NOTE | 2020-08-09 17:06 | RADIOLOGY REPORT (SQ) ---
EXAM DESCRIPTION: T SPINE AP/LAT IMAGES COMPLETED DATE/TIME: 08/09/2020 10:52 am REASON FOR STUDY: CHEST PAIN ON BREATHING; PAIN IN LEFT FOOT; UPPER BACK PAIN Z00.00 ENCNTR FOR [facility] ADULT MEDICAL EXAM W/O ABNORMAL FI R07.89 OTHER CHEST PAIN R07.1 CHEST PAIN ON BREATHING COMPARISON: 09/18/2018 NUMBER OF VIEWS: Two views. TECHNIQUE: AP and lateral radiographic images acquired of the thoracic spine. LIMITATIONS: None. FINDINGS: MINERALIZATION: Normal. ALIGNMENT: Mild dextroscoliosis has increased slightly since the earlier study. VERTEBRAE: No fracture or bone lesion. Maintained height, normal segmentation. DISCS: No significant loss of height or significant narrowing. No large osteophytes. HARDWARE: None in the spine. MEDIASTINUM AND SOFT TISSUES: Normal heart size and aortic contour. No soft tissue abnormality. VISUALIZED LUNG ZUNIGA: Clear. OTHER: No other significant finding. IMPRESSION: Scoliosis. No acute finding. TECHNICAL DOCUMENTATION: JOB ID: [id number] 2010 [employer]- All Rights Reserved Reading location - IP/workstation name: [email or web address]
--- NOTE | 2020-08-09 17:07 | RADIOLOGY REPORT (SQ) ---
EXAM DESCRIPTION: CHEST PA/LATERAL IMAGES COMPLETED DATE/TIME: 08/09/2020 10:52 am REASON FOR STUDY: CHEST PAIN ON BREATHING; PAIN IN LEFT FOOT; UPPER BACK PAIN COMPARISON: 09/01/2019 EXAM PARAMETERS: NUMBER OF VIEWS: two views TECHNIQUE: Digital Frontal and Lateral radiographic views of the chest acquired. RADIATION DOSE: NA LIMITATIONS: none FINDINGS: LUNGS AND PLEURA: No opacities, masses or pneumothorax. No pleural effusion. MEDIASTINUM AND HILAR STRUCTURES: No masses or contour abnormalities. HEART AND VASCULAR STRUCTURES: Heart normal size. No evidence for failure. BONES: No acute findings. HARDWARE: None in the chest. OTHER: No other significant finding. IMPRESSION: NO SIGNIFICANT RADIOGRAPHIC FINDING IN THE CHEST. TECHNICAL DOCUMENTATION: JOB ID: [id number] 2010 [employer]- All Rights Reserved Reading location - IP/workstation name: [email or web address]
--- NOTE | 2020-08-09 17:12 | RADIOLOGY REPORT (SQ) ---
EXAM DESCRIPTION: C SP 6 OR MORE VIEWS IMAGES COMPLETED DATE/TIME: 08/09/2020 10:52 am REASON FOR STUDY: CHEST PAIN ON BREATHING; PAIN IN LEFT FOOT; UPPER BACK PAIN Z00.00 ENCNTR FOR [facility] ADULT MEDICAL EXAM W/O ABNORMAL FI R07.89 OTHER CHEST PAIN R07.1 CHEST PAIN ON BREATHING COMPARISON: None. NUMBER OF VIEWS: Seven views. TECHNIQUE: AP, lateral, obliques, flexion, extension, and odontoid radiographic images acquired of t he cervical spine. LIMITATIONS: None. FINDINGS: MINERALIZATION: Normal. ALIGNMENT: Anatomic. FLEXION/EXTENSION: No instability. VERTEBRAE: Vertebral bodies of normal height. DISCS: Disc spaces are narrowed from C5-C7. Marginal osteophytes are most prominent at C6-7 FORAMINA: There is narrowing of the right neural foramen at C6-7 secondary to uncovertebral osteophyt es. There is mild narrowing at C5-6. LATERAL AND POSTERIOR ELEMENTS: Facets, lateral masses, and spinous processes without significant fin dings. HARDWARE: None in the spine. SOFT TISSUES: No masses or calcifications. Lung apices clear. OTHER: No other significant finding. IMPRESSION: Degenerative disc disease and spondylosis as described. No instability on flexion/extension. TECHNICAL DOCUMENTATION: JOB ID: [id number] 2010 [employer]- All Rights Reserved Reading location - IP/workstation name: [email or web address]
== END ==
LOC: CCC 09:47
PROVIDERS: ATTEND Family Medicine
DX: Z00.00 Encounter for general adult medical examination without abnormal findings (principal); R07.1 Chest pain on breathing; M79.672 Pain in left foot; M54.6 Pain in thoracic spine; M54.2 Cervicalgia; R07.89 Other chest pain
CPT/HCPCS: 36415; 71046; 72052; 72070; 80053; 80061; 83036; 84439; 84443; 85025; 93005; 93010

== ENCOUNTER 2020-08-11 14:46 | Emergency (ER) | payer OTHER ==
--- NOTE | 2020-08-11 14:59 | ER Document Report ---
ED Medical Screen (RME) - General Stated Complaint: FLANK PAIN [facility]: [facility] [Primary Care Provider] - Follow up as needed Mode of Arrival: Ambulatory Information source: Patient Notes: 44-year-old female patient presents the emergency department chief complaint of right flank pain. Patient reports pain has actually been going on for a few months, worsening over the last couple of days. She reports associated dysuria, urinary frequency and "tingling in the urethra". Patient denies any fever, chills, nausea, vomiting or diarrhea. Patient appears uncomfortable, tenderness with palpation over the right flank and CVA. I have greeted and performed a rapid initial assessment of this patient. A comprehensive ED assessment and evaluation of the patient, analysis of test results and completion of the medical decision making process will be conducted by additional ED providers. I have specifically instructed the patient or family members with the patient to immediately return to any nursing staff should anything change in the patient's condition or with their chief complaint. TRAVEL OUTSIDE OF THE [place] IN LAST 30 DAYS: No - Related Data Allergies/Adverse Reactions: No Known Allergies Allergy (Verified 08/11/20 14:53) Past Medical History - Social History Family history: Reviewed & Not Pertinent - Past Medical History Cardiac Medical History: Reports: Hx Hypercholesterolemia Denies: Hx Heart Attack, Hx Hypertension Pulmonary Medical History: Reports: Hx Asthma, Hx Bronchitis, Hx COPD, Hx Pneumonia Neurological Medical History: Reports: Hx Migraine Renal/ Medical History: Denies: Hx Peritoneal Dialysis GI Medical History: Reports: Hx Hiatal Hernia, Hx Ulcer - not a bleeding ulcer Musculoskeltal Medical History: Reports Hx Arthritis - back, Reports Hx Musculoskeletal Deformity - scoliosis, bunion, hammer toe, Reports Hx Musculoskeletal Trauma Skin Medical History: Reports Hx Cellulitis Psychiatric Medical History: Reports: Hx Anxiety Traumatic Medical History: Reports: Hx Fractures - toes Past Surgical History: Reports: Hx Abdominal Surgery - inguinal hernia, Hx Hysterectomy, Hx Inguinal Hernia, Hx Orthopedic Surgery - Left foot surgery x 3. Denies: Hx Mastectomy, Hx Open Heart Surgery - Immunizations Hx Diphtheria, Pertussis, Tetanus Vaccination: Yes Doctor's Discharge - Discharge [facility]errals: [facility] [Primary [facility] Provider] - Follow up as needed
[2020-08-11 15:47] LABS: ABSOLUTE BASOPHILS # (AUTO) 0.1 10^3/uL (0.0-0.2); ABSOLUTE EOSINOPHILS # (AUTO) 0.3 10^3/uL (0.0-0.6); ABSOLUTE LYMPHOCYTES (AUTO) 2.7 10^3/uL (0.5-4.7); ABSOLUTE MONOCYTES (AUTO) 0.4 10^3/uL (0.1-1.4); ABSOLUTE NEUT (AUTO) 1.5 10^3/uL (1.7-8.2); BASOPHILS % (AUTO) 1.3 % (0-2); EOSINOPHILS % (AUTO) 6.3 % (0-6); HEMATOCRIT 39.9 % (36.0-47.0); HEMOGLOBIN 13.6 g/dL (12.0-15.5); LYMPHOCYTES % (AUTO) 54.2 % (13-45); MEAN CORPUSCULAR HEMOGLOBIN 31.1 pg (27.0-33.4); MEAN CORPUSCULAR VOLUME 91 fl (80-97); MONOCYTES % (AUTO) 8.2 % (3-13); PLATELET COUNT 219 10^3/uL (150-450); RED BLOOD COUNT 4.36 10^6/uL (3.72-5.28); RED CELL DISTRIBUTION WIDTH 13.3 % (11.5-14.0); TOTAL CELLS COUNTED % (AUTO) 100 %; WHITE BLOOD COUNT 5.1 10^3/uL (4.0-10.5)
[2020-08-11 15:50] LABS: APPEARANCE,URINE SLIGHTLY-CLOUDY; BILIRUBIN,URINE NEGATIVE (NEGATIVE); COLOR,URINE YELLOW; GLUCOSE, URINE NEGATIVE (NEGATIVE); KETONES,URINE NEGATIVE (NEGATIVE); LEUKOCYTE ESTERASE,URINE NEGATIVE (NEGATIVE); NITRITE,URINE NEGATIVE (NEGATIVE); PROTEIN,URINE NEGATIVE (NEGATIVE); URINE SPECIFIC GRAVITY 1.017; UROBILINOGEN,URINE NEGATIVE mg/dL (<2.0)
[2020-08-11 15:54] LABS: ALKALINE PHOSPHATASE 80 U/L (38-126); ANION GAP 6 (5-19); ASPARTATE AMINO TRANSFERASE 28 U/L (14-36); BILIRUBIN,DIRECT 0.2 mg/dL (0.0-0.4); BILIRUBIN,TOTAL 0.8 mg/dL (0.2-1.3); BLOOD UREA NITROGEN 12 mg/dL (7-20); CALCIUM 9.7 mg/dL (8.4-10.2); CARBON DIOXIDE 29 mmol/L (22-30); CHLORIDE 103 mmol/L (98-107); GLUCOSE 102 mg/dL (75-110); POTASSIUM 4.5 mmol/L (3.6-5.0); TOTAL PROTEIN 6.7 g/dL (6.3-8.2)
--- NOTE | 2020-08-11 16:39 | RADIOLOGY REPORT (SQ) ---
EXAM DESCRIPTION: CT ABD/PELVIS NO ORAL OR IV IMAGES COMPLETED DATE/TIME: 08/11/2020 4:28 pm REASON FOR STUDY: flank pain COMPARISON: 03/31/2020 TECHNIQUE: CT scan of the abdomen and pelvis performed without intravenous or oral contrast. Images reviewed with lung, soft tissue, and bone windows. Reconstructed coronal and sagittal MPR images revi ewed. All images stored on PACS. All CT scanners at this facility use dose modulation, iterative reconstruction, and/or weight based d osing when appropriate to reduce radiation dose to as low as reasonably achievable (ALARA). [facility]: Dose Right [facility]: CareDose [facility]: Dose Right [facility]: Teradose 4D [facility]: Yulex RADIATION DOSE: CT Rad equipment meets quality standard of care and radiation dose reduction techniq ues were employed. CTDIvol: 5.7 mGy. DLP: 285 mGy-cm.mGy. LIMITATIONS: None. FINDINGS: LOWER CHEST: No significant findings. No nodules or infiltrates. NON-CONTRASTED LIVER, SPLEEN, ADRENALS: Evaluation limited by lack of IV contrast. No identified sign ificant masses. PANCREAS: No masses. No peripancreatic inflammatory changes. GALLBLADDER: No identified stones by CT criteria. No inflammatory changes to suggest cholecystitis. RIGHT KIDNEY AND URETER: No suspicious masses. Assessment limited by lack of IV contrast. No signif icant calcifications. No hydronephrosis or hydroureter. LEFT KIDNEY AND URETER: No suspicious masses. Assessment limited by lack of IV contrast. No signifi cant calcifications. No hydronephrosis or hydroureter. AORTA AND RETROPERITONEUM: No aneurysm. No retroperitoneal masses or adenopathy. BOWEL AND PERITONEAL CAVITY: No obvious masses or inflammatory changes. No free fluid. APPENDIX: Normal. PELVIS, BLADDER, AND ABDOMINAL WALL:No abnormal masses. No free fluid. Bladder normal. BONES: No significant findings. OTHER: No other significant finding. IMPRESSION: NO SIGNIFICANT OR ACUTE PROCESS IN THE ABDOMEN OR PELVIS. COMMENT: Quality ID # [id number]: Final reports with documentation of one or more dose reduction techniques (e.g., Automated exposure control, adjustment of the mA and/or kV according to patient size, use of iterative reconstruction technique) TECHNICAL DOCUMENTATION: JOB ID: [id number] 2010 [employer]- All Rights Reserved Reading location - IP/workstation name: [email or web address]
--- NOTE | 2020-08-11 17:29 | ER Document Report ---
ED General - General Chief Complaint: Flank Pain Stated Complaint: FLANK PAIN Time Seen by Provider: 08/11/20 16:58 Primary Care Provider: [facility] [NO LOCAL MD] - Follow up as needed Mode of Arrival: Ambulatory TRAVEL OUTSIDE OF THE [place] IN LAST 30 DAYS: No - HPI Notes: Chief complaint: Intermittent flank pain and urinary symptoms History of present illness: 44-year-old female patient presents the emergency department chief complaint of intermittent right flank pain which has been going on for a few months. Symptoms worsening over the last couple of days. She reports associated dysuria, urinary frequency and "tingling in the urethra". The patient says she was previously seen here with similar symptoms and was told they found some blood in her urine started having some problems. She was advised to see a urologist at that time but says she has never made a follow-up appointment. Patient denies any fever, chills, nausea, vomiting or diarrhea. - Related Data Allergies/Adverse Reactions: No Known Allergies Allergy (Verified 08/11/20 14:53) Past Medical History - General Information source: Patient - Social History Smoking Status: Current Every Day Smoker Frequency of alcohol use: Occasional Drug Abuse: None Lives with: Family Family History: Arthritis, CAD, CVA, DM, Hyperlipidemia, Hypertension - Past Medical History Cardiac Medical History: Reports: Hx Hypercholesterolemia Denies: Hx Heart Attack, Hx Hypertension Pulmonary Medical History: Reports: Hx Asthma, Hx Bronchitis, Hx COPD, Hx Pneumonia Neurological Medical History: Reports: Hx Migraine Renal/ Medical History: Denies: Hx Peritoneal Dialysis GI Medical History: Reports: Hx Hiatal Hernia, Hx Ulcer - not a bleeding ulcer Musculoskeletal Medical History: Reports Hx Arthritis - back, Reports Hx Musculoskeletal Deformity - scoliosis, bunion, hammer toe, Reports Hx Musculoskeletal Trauma Skin Medical History: Reports Hx Cellulitis Psychiatric Medical History: Reports: Hx Anxiety Traumatic Medical History: Reports: Hx Fractures - toes Past Surgical History: Reports: Hx Abdominal Surgery - inguinal hernia, Hx Hysterectomy, Hx Inguinal Hernia, Hx Orthopedic Surgery - Left foot surgery x 3. Denies: Hx Mastectomy, Hx Open Heart Surgery - Immunizations Hx Diphtheria, Pertussis, Tetanus Vaccination: Yes Review of Systems - Review of Systems Notes: Constitutional: Negative for fever. HENT: Negative for sore throat. Eyes: Negative for visual changes. Cardiovascular: Negative for chest pain. Respiratory: Negative for shortness of breath. Gastrointestinal: Negative for abdominal pain, vomiting or diarrhea. Genitourinary: As per HPI. Musculoskeletal: As per HPI. Skin: Negative for rash. Neurological: Negative for headaches, weakness or numbness. 10 point ROS negative except as marked above and in HPI. Physical Exam - Vital signs Vitals: Temp Pulse Resp BP Pulse Ox 98.0 F 85 18 102/59 L 99 08/11/20 15:00 08/11/20 15:00 08/11/20 15:00 08/11/20 15:00 08/11/20 15:00 - Notes Notes: GENERAL: Slender middle-age female appearing in no acute distress. SKIN: Good turgor no rashes. HEAD: Normocephalic atraumatic. EYES: PERRLA. EOMI. Conjunctivae and sclerae clear. EARS: CANALS AND TMS CLEAR. NOSE: CLEAR. MOUTH: Moist mucosa. Good dentition. No stridor or edema. No drooling. NECK: Supple. No masses or thyromegaly. No adenopathy. Carotids 2+ without bruits. No JVD. BACK: Symmetrical without tenderness. CHEST: Respirations unlabored. Breath sounds clear and symmetrical. HEART: Regular rhythm. No murmur gallop or rub. ABDOMEN: Healed long midline surgical scar present. Soft nontender without masses, organomegaly or rebound. Bowel sounds normally active. No bruits. GENITALIA: Deferred. EXTREMITIES: No edema. No calf tenderness. Cap refill less than 1.5 seconds. Dorsalis pedis and posterior tibial pulses 3+ and symmetrical. NEUROLOGICAL: GCS 15. Alert and oriented x3. Normal gait. Fluent speech. Cranial nerves II through XII intact. Sensorimotor and cerebellar normal. Normal tone. PSYCHIATRIC: Appropriate affect. Course - Re-evaluation Re-evalutation: 08/11/20 17:29 Urinalysis is remarkable for some persistent microscopic hematuria. Co mprehensive metabolic profile totally within normal limits. Hemoglobin is normal. White count is not elevated. Noncontrast CT abdomen pelvis unremarkable per radiologist. I suspect this lady may have a chronic interstitial cystitis but we certainly cannot exclude possibility of a bladder neoplasm and middle-aged female who is a smoker. I explained patient that she needs to be seen by urologist and exercise importance of getting appropriate follow-up because of recent microscopic hematuria and ongoing symptoms. I will culture the urine specimen. I will send her out with empiric treatment with Macrobid pending culture results I will also give her some Pyridium. We discussed red flag symptoms to prompt early return to the ED otherwise I strongly encouraged her to follow-up with urologist as recommended. Findings, clinical impression and plan of treatment have been discussed with pa jim/family. Understanding of current findings and recommendations has been acknowledged by them and there is agreement regarding disposition and follow-up. - Vital Signs Vital signs: Temp Pulse Resp BP Pulse Ox 98.0 F 85 18 102/59 L 99 08/11/20 15:00 08/11/20 15:00 08/11/20 15:00 08/11/20 15:00 08/11/20 15:00 - Laboratory Result Diagrams: 08/11/20 15:08 08/11/20 15:08 Laboratory results interpreted by me: 08/11/20 08/11/20 15:08 15:08 Lymph % (Auto) 54.2 H Eos % (Auto) 6.3 H Absolute Neuts (auto) 1.5 L Seg Neutrophils % 30.0 L Urine Blood MODERATE H - Diagnostic Test Radiology reviewed: Image reviewed, Reports reviewed Radiology results interpreted by me: 08/11/20 17:28 Abdomen/Pelvis CT 08/11/20 16:20 IMPRESSION: NO SIGNIFICANT OR ACUTE PROCESS IN THE ABDOMEN OR PELVIS. Discharge - Discharge Clinical Impression: Chronic dysuria, Microscopic hematuria Condition: Stable Disposition: HOME, SELF-CARE Additional Instructions: Hematuria Hematuria, or blood in your urine, can be caused by minor medical problems, such as a bladder infection, or by more serious medical conditions, such as kidney stones or even tumors of the bladder or kidney. If the cause of the hematuria is known (such as a bladder infection) and can be treated, it may not need further evaluation. If the cause is not known, it will usually require further evaluation by a specialist, such as a urologist. In particular, unexplained hematuria in the older patient must be evaluated to rule out a serious condition, such as a bladder or kidney tumor. If the hematuria worsens or you are passing clots and then are unable to urinate, you should be re-evaluated. A catheter may need to be placed in the bladder to permit passage of urine. If you develop high fever, severe pain, or other new or worsening symptoms, return to the Emergency Department for re- evaluation. Take prescribed medications as instructed. Increase oral fluid intake. Return here as needed for new or worsening symptoms: Pain that is worsening or unimproved Uncontrolled vomiting High fever or shaking chills Overall worsening Prescriptions: Nitrofurantoin Monohyd/M-Cryst [Macrobid 100 mg Capsule] 100 mg PO BID 7 Days #14 cap Phenazopyridine HCl [Pyridium 200 mg Tablet] 200 mg PO TID #15 tablet Referrals: [facility] [NO LOCAL MD] - Follow up as needed USAMA SUBRAMANIAN MD [NO LOCAL MD] - Follow up as needed
[2020-08-11 18:02] VITALS: BP 111/55
== END 2020-08-11 17:59 | disposition home or self-care (01) ==
LOC: ER 14:46
DX: R30.0 Dysuria (principal); R31.29 Other microscopic hematuria; R10.9 Unspecified abdominal pain; R35.0 Frequency of micturition; F17.200 Nicotine dependence, unspecified, uncomplicated; J44.9 Chronic obstructive pulmonary disease, unspecified
CPT/HCPCS: 36415; 74176; 80053; 81001; 81025; 83690; 85025; 87086; 99284

== ENCOUNTER → 2020-08-23 | Outpatient (CLI) | payer OTHER ==
[2020-08-23 14:57] LABS: ABSOLUTE BASOPHILS # (AUTO) 0.1 10^3/uL (0.0-0.2); ABSOLUTE EOSINOPHILS # (AUTO) 0.3 10^3/uL (0.0-0.6); ABSOLUTE MONOCYTES (AUTO) 0.5 10^3/uL (0.1-1.4); ABSOLUTE NEUT (AUTO) 2.1 10^3/uL (1.7-8.2); BASOPHILS % (AUTO) 1.1 % (0-2); HEMOGLOBIN 14.8 g/dL (12.0-15.5); LYMPHOCYTES % (AUTO) 50.5 % (13-45); MEAN CORPUSCULAR HEMOGLOBIN 30.5 pg (27.0-33.4); MEAN CORPUSCULAR HGB CONC 33.8 g/dL (32.0-36.0); MEAN CORPUSCULAR VOLUME 90 fl (80-97); MONOCYTES % (AUTO) 8.8 % (3-13); PLATELET COUNT 250 10^3/uL (150-450); RED BLOOD COUNT 4.87 10^6/uL (3.72-5.28); RED CELL DISTRIBUTION WIDTH 13.4 % (11.5-14.0); SEGMENTED NEUTROPHILS % (AUTO) 34.6 % (42-78); TOTAL CELLS COUNTED % (AUTO) 100 %
== END ==
LOC: CCC 13:33
PROVIDERS: ATTEND Family Medicine
DX: D72.819 Decreased white blood cell count, unspecified (principal)
CPT/HCPCS: 36415; 85025